=== PATIENT | female | born 1965 | race Caucasian/White ===

== ENCOUNTER 2024-04-14 19:21 | Emergency (ER) | payer OTHER, SELFPAY ==
--- NOTE | ~2024-04-14 | XR_ITS ---
CLINICAL HISTORY: cough 2 view chest x-ray Comparison: None Findings: The lungs are clear. Heart size is normal. No acute fracture. IMPRESSION: 1. No acute findings. This document has been electronically signed by: Dwain Monet MD on 04/14/2024 19:46:41
[2024-04-14 19:25] VITALS: BP 124/59; PULSE 114; RESP 20; TEMP 37.4; O2SAT 95; BMI 22.5
--- NOTE | 2024-04-14 19:29 | ED_ITS ---
HPI - General Adult General Chief complaint: Upper Respiratory Symptoms Stated complaint: flu like symptoms Time Seen by Provider: 04/14/24 22:33 History of Present Illness ED Provider: Regina WOOD narrative: The patient is a 58-year-old female who says that she became acutely ill yesterday with a cough, fever, headache and diffuse body pains. She has had a cough but no particular sputum. No nausea or vomiting. Feels rotten. Related Data Previous Rx's ?Medication ?Instructions ?Recorded ibuprofen 400 mg tablet 400 mg PO Q6H PRN pain #14 tabs 04/15/24 oseltamivir 75 mg capsule 75 mg PO BID 5 days #10 caps 04/15/24 Allergies Allergy/AdvReac Type Severity Reaction Status Date / Time No Known Allergies Allergy Verified 04/14/24 19:27 Review of Systems Review of Systems: Yes all other systems are reviewed and are negative [facility] Social History Social History Advance Directives: No Advance Directives Information Provided: No Do you have a plan to hurt others: No Plan Physical Exam ED Vital Signs: Vital Signs - 24 hr 04/14/24 19:25 04/15/24 00:35 Temperature 99.4 F 99.2 F Pulse Rate 114 H 76 Respiratory Rate 20 16 Blood Pressure 124/59 L 116/68 Pulse Oximetry 95 96 Oxygen Delivery Method Room Air BMI result Body Mass Index 22.5 Const Other: The patient is awake and alert with a normal mental status. She looks as if she feels unwell but does not seem acutely toxic or in distress. [facility] Head: Yes normal to inspection Face and sinus: Yes normal facial exam Mouth: Normal oral and palatal mucosa present and moist mucous membranes Eyes General: appearance normal, both eyes and all related structures Neck Neck: Yes full ROM Resp Other: I did not hear any wheezes. She did not appear short of breath. Effort & Inspection: normal respiratory effort Auscultation: clear to auscultation bilaterally Cardio Rate: regular rate Rhythm: regular rhythm Heart sounds: S1 normal heart sound present and S2 normal heart sound present GI Other: Abdomen is soft and nontender Skin Other: Skin is dry and unremarkable Neuro Other: The patient is awake and alert with a normal mental status. Cranial nerves grossly intact. She moves her extremities normally. Extrem Other: No peripheral edema Course Course Course Narrative: RME performed by Karolyn Abreu PA-C. Patient is a 58 year old assigned female at presenting to the emergency department with a cough, headache, and shortness of breath. Detailed physical exam and review of systems are deferred to the ios developer. EKG, imaging, and swabs ordered. Patient placed back in the waiting room pending room availability and results. Medications Administered Discontinued Medications Generic Name Dose Route Start Last Admin Trade Name Marie PRN Reason Stop Dose Admin Acetaminophen 975 mg 04/14/24 22:39 04/14/24 23:19 Acetaminophen 325 Mg Tablet PO 04/14/24 22:40 975 mg ONCE ONE Administration Ketorolac Tromethamine 30 mg 04/14/24 22:39 04/14/24 23:19 Ketorolac Tromethamine 30 Mg/Ml Vial IM 04/14/24 22:40 30 mg ONCE ONE Administration Oseltamivir Phosphate 75 mg 04/14/24 22:40 04/14/24 23:19 Oseltamivir Phosphate 75 Mg Capsule PO 04/14/24 22:41 75 mg ONCE ONE Administration Medical Decision Making Medical Decision Making [facility] Narrative: The patient is a 58-year-old female who describes symptoms of respiratory infection combined with a headache and body aches suggestive of influenza. She has tested positive for influenza A. She has been coughing. A chest x-ray is negative. I do not hear any wheezes on exam. She will be started on oseltamivir. She was treated symptomatically with an IM injection of ketorolac and a dose of acetaminophen. She was observed. She fell asleep. She will be discharged with a prescription for oseltamivir and for ibuprofen. The patient lives at some kind of a skilled nursing house. She is new in his area. She does not have a primary care doctor. Her program was called and they sent a car to pick her up. She should return if worse. Lab Data Labs: Lab Results 04/14/24 Range/Units 19:39 Influenza Type A (PCR) POSITIVE A (Negative) Influenza Type B (PCR) NEGATIVE (Negative) RSV RNA Qual (PCR) NEGATIVE (Negative) SARS-CoV-2 RNA (RT-PCR) NEGATIVE (Negative) Discharge Plan Discharge Clinical Impression: Influenza A Patient Disposition: Home, Self-Care Instructions: Influenza (ED) Additional Instructions: You have tested positive for influenza today. You has been started on an anti influenza medication, oseltamivir, also known as Tamiflu. A prescription for this medication has been sent to the [facility] pharmacy at [address] [place] [address] in [place]. A prescription has also been sent for ibuprofen which you may use as needed for discomfort. In addition you may take [id number] acetaminophen (Tylenol). Drink a lot of fluids. Please work on getting a regular primary care doctor. Return to the emergency room if significantly worse. Prescriptions: New oseltamivir 75 mg capsule 75 mg PO BID 5 Days Qty: 10 0RF ibuprofen 400 mg tablet 400 mg PO Q6H PRN (Reason: pain) Qty: 14 0RF Interventions: ED Discharge Assessment Last Done: 04/15/24 00:35 Discharge Date/Time: 04/15/24 00:36 Print Language: Venezuelan
--- NOTE | 2024-04-14 19:31 | ECG_ITS ---
Test Reason : SOB Blood Pressure : / mmHG Vent. Rate : 071 BPM Atrial Rate : 071 BPM P-R Int : 126 ms QRS Dur : 092 ms QT Int : 388 ms P-R-T Axes : 051 029 052 degrees QTc Int : 421 ms Normal sinus rhythm Incomplete right bundle branch block Septal infarct , age undetermined Abnormal ECG No previous ECGs available Referred By: Karolyn Abreu Electronically Signed By:Reggie Gordon
[2024-04-14 20:20] LABS: Influenza A PCR POSITIVE (Negative); Influenza B PCR NEGATIVE (Negative); Resp Syncy Virus RNA Qual PCR NEGATIVE (Negative); SARS COV2 PCR INHOUSE NEGATIVE (Negative)
[2024-04-14] MEDS: Acetaminophen 325 MG TABLET 975 MG PO (23:19)
[2024-04-14] MEDS: Ketorolac Tromethamine 30 MG/ML VIAL IM (23:19)
[2024-04-14] MEDS: Oseltamivir Phosphate 75 MG CAPSULE PO (23:19)
[2024-04-15 00:35] VITALS: BP 116/68; PULSE 76; RESP 16; TEMP 37.3; O2SAT 96
== END 2024-04-15 00:36 | disposition home or self-care (01) ==
PROVIDERS: Physician Assistant Medical; Emergency Provider Emergency Medicine
DX: R05.9 Cough, unspecified (principal); R50.9 Fever, unspecified; R51.9 Headache, unspecified; I45.10 Unspecified right bundle-branch block; R06.02 Shortness of breath; Z03.818 Encounter for observation for suspected exposure to other biological agents ruled out
CPT/HCPCS: 0241U; 71046; 93005; 96372; 99283; 99284; J1885

== ENCOUNTER → 2024-04-14 19:31 | Outpatient (BNV) | payer MEDICAID, SELFPAY | PROVIDERS: Visit Provider Specialist | DX: R05.9 Cough, unspecified (principal) | CPT/HCPCS: 71046 ==

== ENCOUNTER → 2024-04-14 19:31 | Outpatient (BNV) | payer OTHER, SELFPAY | PROVIDERS: Emergency Provider Emergency Medicine; Visit Provider Internal Medicine Cardiovascular Disease | DX: R06.02 Shortness of breath (principal) | CPT/HCPCS: 93010 ==

== ENCOUNTER 2024-06-27 08:47 | Inpatient (IN) | payer MEDICAID, OTHER, SELFPAY ==
--- NOTE | 2024-06-27 | ECG_ITS ---
Test Reason : check qt Blood Pressure : */* mmHG Vent. Rate : 59 BPM Atrial Rate : 59 BPM P-R Int : 130 ms QRS Dur : 92 ms QT Int : 440 ms P-R-T Axes : 50 37 29 degrees QTcB Int : 435 ms Sinus bradycardia Otherwise normal ECG When compared with ECG of 14-Apr-2024 19:45, No significant change was found Referred By: Osman Larsen Electronically Signed By: MAURIZIO GUILLAUME
[2024-06-27 08:57] VITALS: RESP 20; BMI 21.6
[2024-06-27 09:08] VITALS: RESP 20
--- NOTE | 2024-06-27 09:09 | PC.NURSE ---
pt presents to the ED today after being kicked out of her long-term per EMS. When patient was told that she was being discharged from the long-term, she reportedly locked herself in the bathroom so they could not take her out. She then made suicidal statements. upon arrival, patient is yelling, screaming and crying, initially refusing to record changer tester. Security Nagi and ODALYS Breaux both accompanied patient to bathroom for changeover. patient now laying on couch in BH 7, refusing to answer questions
--- NOTE | 2024-06-27 09:58 | ED_ITS ---
HPI - Psych General Chief Complaint: Psychiatric Symptoms Stated Complaint: SI STATEMENTS FROM [facility],COOP PER EMS Time Seen by Provider: 06/27/24 09:35 Source: patient Mode of arrival: ambulatory Limitations: no limitations History of Present Illness HPI Narrative: 58-year-old female presents to the ER after being discharged from she states her snf house for using a vape. Patient did make some suicide she denies SI at this time she had locked herself in the bathroom she went to leave patient is tearful and yelling and agitated on arrival Related Data Home Medications ?Medication ?Instructions ?Recorded ?Confirmed buprenorphine 8 mg-naloxone 2 mg 1 film buccal BID 06/27/24 06/27/24 sublingual film (Suboxone) chlorpromazine 25 mg tablet 25 mg PO TID PRN Agitation 06/27/24 06/27/24 diphenhydramine HCl 25 mg capsule 25 mg PO BID 06/27/24 06/27/24 (Benadryl) duloxetine 30 mg capsule,delayed 30 mg PO BID 06/27/24 06/27/24 release furosemide 20 mg tablet 20 mg PO DAILY 06/27/24 06/27/24 lidocaine 4 % topical patch 1 patch topical DAILY PRN Pain 06/27/24 06/27/24 mirtazapine 15 mg tablet 15 mg PO BEDTIME 06/27/24 06/27/24 prazosin 1 mg capsule 2 mg PO BEDTIME 06/27/24 06/27/24 propranolol 20 mg tablet 20 mg PO TID PRN Anxiety 06/27/24 06/27/24 rosuvastatin 20 mg tablet 20 mg PO DAILY 06/27/24 06/27/24 Allergies Allergy/AdvReac Type Severity Reaction Status Date / Time No Known Allergies Allergy Verified 06/27/24 08:58 Review of Systems 2 Review of Systems: Review of systems: General: Patient denies any fever chills recent illness or falls Musculoskeletal: Denies back pain or body aches or other injuries HEENT: denies headache, runny nose, ear pain Respiratory: denies shortness of breath, cough Cardiovascular: no chest pain or palpitations : denies dysuria, frequency Abdomen: no nausea vomiting denies abdominal pain Extremities: no swelling, no pain Skin: no diaphoresis Yes all other systems are reviewed and are negative [facility] Social History Social History Advance Directives: No Advance Directives Information Provided: No Patient : No Physical Exam 2 Vital Signs: Vital Signs: Last Vital Signs Temp 98.2 F 06/27/24 10:07 Pulse 110 H 06/27/24 10:07 Resp 22 H 06/27/24 10:07 BP 127/74 06/27/24 10:07 Pulse Ox 98 06/27/24 10:07 O2 Del Method Room Air 06/27/24 10:07 BMI result Body Mass Index 21.6 General: Well-appearing well-nourished in no signs of distress HEENT: Normocephalic atraumatic Neck: No signs of JVD, no masses no tenderness or lymphadenopathy Cardiovascular: Regular rate and rhythm Respiratory: Clear to auscultation bilaterally Abdomen: Soft nontender no masses Extremities: Normal pedal pulses no signs of edema Skin: Dry warm no rashes Back: No tenderness full ROM Course Course Course Narrative: Patient found to have a bladder infection was treated with cefuroxime which is ordered twice a day for the next few days while she was here patient was placed on a section 12 by [facility] inpatient stay here pending placement. Medications Administered Generic Name Dose Route Start Last Admin Trade Name Freq PRN Reason Stop Dose Admin Buprenorphine/Naloxone 1 film 06/27/24 10:05 06/27/24 10:31 Buprenorphine/Naloxone 8/2 Mg Film BUCCAL 1 film BID NASREEN Administration Chlorpromazine HCl 25 mg 06/27/24 09:59 06/27/24 10:31 Chlorpromazine Hcl 25 Mg Tablet PO 25 mg TID PRN Administration Agitation Diphenhydramine HCl 25 mg 06/27/24 10:15 06/27/24 10:31 Diphenhydramine Hcl 25 Mg Capsule PO 25 mg BID NASREEN Administration Duloxetine HCl 30 mg 06/27/24 10:15 06/27/24 10:31 Duloxetine Hcl 30 Mg Capsule.Dr PO 30 mg BID NASREEN Administration Furosemide 20 mg 06/27/24 10:15 06/27/24 10:31 Furosemide 20 Mg Tablet PO 20 mg DAILY NASREEN Administration Protocol Medical Decision Making Medical Decision Making [facility] Narrative: I think the patient is to be cleared labs were sent I did order her home medications and we will wait for the patient to be a behavioral health Differential Diagnosis Differential Diagnoses: The differential diagnosis associated with the presentation includes Attention seeking behavior less likely suicidal Consult Healthcare Provider Management of the patient was discussed with: Behavioral Health Provider Lab Data 06/27/24 12:05 06/27/24 12:05 Labs: Lab Results 06/27/24 06/27/24 Range/Units 12:05 12:14 WBC 7.5 (4.8-10.8) X10*3/uL RBC 4.55 (4.20-5.50) X10*6/uL Hgb 13.5 (12.0-16.0) g/dl Hct 40.2 (37.0-47.0) % MCV 88.4 (80.0-98.0) fL MCH 29.7 (27.0-33.0) pg MCHC 33.6 (31.0-35.0) g/dl RDW 12.1 (11.0-16.0) % Plt Count 217 (160-400) X10*3/uL MPV 9.2 L (9.4-12.3) fL Immature Gran % (Auto) 0.1 (0.0-0.4) % Neut % (Auto) 73.0 (45-73) % Lymph % (Auto) 22.3 (20-40) % [place] % (Auto) 4.0 (2-11) % Eos % (Auto) 0.3 (0-4) % Baso % (Auto) 0.3 (0-2) % Lymph # (Auto) 1.7 (1.2-4.9) X10*3/uL [place] # (Auto) 0.3 (0.1-1.2) X10*3/uL Eos # (Auto) 0.0 (0.0-0.4) X10*3/uL Baso # (Auto) 0.0 (0.0-0.2) X10*3/uL Abs Immat Gran (auto) 0.01 (0.00-0.03) X10*3/uL Absolute Neuts (auto) 5.5 (2.0-8.3) x10*3/uL Absolute Nucleated RBC 0.000 (0.0-0.012) X10*3/uL Nucleated RBC % (auto) 0.0 (0.0-0.2) /100WBC Sodium 141 (135-145) mmol/L Potassium 4.1 (3.3-5.1) mmol/L Chloride 111 H (96-108) mmol/L Carbon Dioxide 24 (22-29) mmol/L Anion Gap 10 L (12-20) BUN 10 (9-16) mg/dL Creatinine 0.69 (0.5-1.4) mg/dL Estim Creat Clear Calc 79.9 Estimated GFR > 60 Random Glucose 115 (60-115) mg/dL Calcium 9.3 (8.4-10.2) mg/dL Total Bilirubin 0.3 (0.0-1.0) mg/dL AST 23 (5-31) U/L ALT 17 (0-31) U/L Alkaline Phosphatase 70 (39-117) U/L Total Protein 7.1 (6.5-8.0) g/dL Albumin 4.1 (3.5-5.0) g/dL Urine Color Yellow Urine Appearance Cloudy Urine pH 7.0 (5.0-9.0) Ur Specific [place] 1.015 (1.005-1.025) Urine Protein Trace (Neg-Trace) mg/dL Urine Glucose (UA) Negative (Negative) mg/dL Urine Ketones Negative (Negative) mg/dL Urine Blood Negative (Negative) Urine Nitrite Positive H (Negative) Ur Leukocyte Esterase Large (3+) H (Negative) Urine RBC 0-2 (0-2) /HPF Urine WBC >50 H (0-5) /HPF Ur Squamous Epith Cells 3-5 (0-2) /HPF Urine Bacteria 4+ (None Seen) Hyaline Casts 0-2 (0-2) /LPF Urine Opiates Screen Not Detected (Not Detect) Ur Buprenorphine Scrn Positive H (Not Detect) ng/mL Ur Oxycodone Screen Not Detected (Not Detect) ng/mL Urine Methadone Screen Not Detected (Not Detect) ng/mL Urine Fentanyl Screen Not Detected (Not Detect) Ur Barbiturates Screen Not Detected (Not Detect) Ur Phencyclidine Scrn Not Detected (Not Detect) Ur Amphetamines Screen Not Detected (Not Detect) U Benzodiazepines Scrn Not Detected (Not Detect) Urine Cocaine Screen Not Detected (Not Detect) U Marijuana (THC) Screen Not Detected (Not Detect) Ethyl Alcohol < 10 mg/dL Discharge Plan Discharge Clinical Impression: Acute anxiety, Depression, UTI (urinary tract infection) Patient Disposition: Still a Patient Instructions: Anxiety (ED) Additional Instructions: You were seen today after being discharged from the police who were staying. You had initially made some suicidal statements while you were there he did have labs checked and were seen by behavioral health. Prescriptions: No Action prazosin 1 mg Capsule 2 mg PO BEDTIME diphenhydramine HCl [Benadryl] 25 mg Capsule 25 mg PO BID chlorpromazine 25 mg Tablet 25 mg PO TID PRN (Reason: Agitation) furosemide 20 mg Tablet 20 mg PO DAILY mirtazapine 15 mg Tablet 15 mg PO BEDTIME propranolol 20 mg Tablet 20 mg PO TID PRN (Reason: Anxiety) rosuvastatin 20 mg Tablet 20 mg PO DAILY duloxetine 30 mg Capsule,Delayed Release(Dr/Ec) 30 mg PO BID buprenorphine-naloxone [Suboxone] 8-2 mg Film 1 film BUCCAL BID lidocaine 4 % Adhesive Patch,Medicated 1 patch TOPICAL DAILY PRN (Reason: Pain) Interventions: Schleicher-Suicide Risk Severity Scale Last Done: 06/27/24 09:08 Print Language: Kazakh
[2024-06-27 10:07] VITALS: BP 127/74; PULSE 110; RESP 22; TEMP 36.8; O2SAT 98
--- NOTE | 2024-06-27 10:13 | PHA.MEDREC ---
Pharmacy Consult ? Medication Reconciliation Pharmacy has completed the medication reconciliation. Reviewed med list to confirm home meds. Changed rec done by nursing. Patient takes Prazosin 1mg, 2 capsules at bedtime, not 1. Also on a Lidocaine patch.
[2024-06-27] MEDS: chlorproMAZINE HCl 25 MG TABLET PO ×2 (10:31→17:50)
[2024-06-27] MEDS: Buprenorphine/Naloxone 8/2 mg FILM 1 FILM BUCCAL ×2 (10:31→20:34)
[2024-06-27] MEDS: Furosemide 20 MG TABLET PO (10:31)
[2024-06-27] MEDS: diphenhydrAMINE HCL 25 MG CAPSULE PO (10:31)
[2024-06-27] MEDS: DULoxetine HCl 30 MG CAPSULE.DR PO ×2 (10:31→20:34)
[2024-06-27 12:10] LABS: MANUAL DIFF FLAG NO
[2024-06-27 12:12] LABS: Basophils Percent Auto 0.3 % (0-2); Eosinophils Percent Auto 0.3 % (0-4); Hematocrit 40.2 % (37.0-47.0); Hemoglobin 13.5 g/dl (12.0-16.0); Imm Gran Abs Auto 0.01 X10*3/uL (0.00-0.03); Imm Gran Pct Auto 0.1 % (0.0-0.4); Lymphocytes Absolute Auto 1.7 X10*3/uL (1.2-4.9); Lymphocytes Percent Auto 22.3 % (20-40); Mean Corpuscular HGB Conc 33.6 g/dl (31.0-35.0); Mean Corpuscular Hemoglobin 29.7 pg (27.0-33.0); Mean Corpuscular Volume 88.4 fL (80.0-98.0); Mean Platelet Volume 9.2 fL (9.4-12.3); Monocytes Absolute Auto 0.3 X10*3/uL (0.1-1.2); Neutrophils Absolute Auto 5.5 x10*3/uL (2.0-8.3); Platelet Count 217 X10*3/uL (160-400); Red Blood Count 4.55 X10*6/uL (4.20-5.50); Red Cell Distribution Width 12.1 % (11.0-16.0); White Blood Count 7.5 X10*3/uL (4.8-10.8)
[2024-06-27 12:24] LABS: Appearance Urine Cloudy; Color Urine Yellow; Glucose Urine UA Negative (Negative); Leukocyte Esterase Urine Large (3+) (Negative); Nitrite Urine Positive (Negative); Specific Gravity - Urine 1.015 (1.005-1.025); UMIC TRIGGER UACC YES; Urine Blood Negative (Negative); Urine Ketones Negative (Negative); Urine Protein Trace mg/dL (Neg-Trace)
[2024-06-27 12:32] LABS: Alanine Aminotransferase 17 U/L (0-31); Albumin Level 4.1 g/dL (3.5-5.0); Alkaline Phosphatase 70 U/L (39-117); Anion Gap 10 (12-20); Aspartate Amino Transferase 23 U/L (5-31); Bilirubin Total 0.3 mg/dL (0.0-1.0); Blood Urea Nitrogen 10 mg/dL (9-16); Calcium 9.3 mg/dL (8.4-10.2); Carbon Dioxide 24 mmol/L (22-29); Chloride 111 mmol/L (96-108); Creatinine Clr Calc Pharmacy 79.9; Estimated Glomerular Filt Rate > 60; Ethanol < 10 mg/dL; Glucose Random 115 mg/dL (60-115); Potassium 4.1 mmol/L (3.3-5.1); Sodium 141 mmol/L (135-145); Total Protein 7.1 g/dL (6.5-8.0)
[2024-06-27 12:33] LABS: Amphetamine Screen Urine Not Detected (Not Detect); Barbiturates, Urine Not Detected (Not Detect); Benzodiazepines Screen Urine Not Detected (Not Detect); Buprenorphine Scr Positive (Not Detect); Cannabinoid Screen Urine Not Detected (Not Detect); Cocaine Screen Urine Not Detected (Not Detect); Fentanyl, urine Not Detected (Not Detect); Methadone Screen, Urine Not Detected (Not Detect); Opiate Screen Urine Not Detected (Not Detect); Oxycodone Screen Urine Not Detected (Not Detect); Phencyclidine Screen Urine Not Detected (Not Detect)
[2024-06-27 12:35] LABS: Bacteria Urine 4+ (None Seen); Hyaline Casts Urine 0-2 /LPF (0-2); RBC Urine 0-2 /HPF (0-2); UACC Culture Trigger YES; WBC Urine >50 /HPF (0-5)
--- NOTE | 2024-06-27 13:32 | MHC.CARE ---
Pt meets the criteria for IPLOC. Section 12a in chart, Provider in agreement.
[2024-06-27] MEDS: cefuroxime axetiL 250 MG TABLET PO ×2 (14:14→22:21)
[2024-06-27 16:45] VITALS: BP 126/71; PULSE 93; RESP 18; TEMP 36.8; O2SAT 96
[2024-06-27] MEDS: Nicotine Polacrilex Lozenge 4 MG LOZENGE BUCCAL (17:50)
[2024-06-27 17:59] VITALS: BMI 21.6
--- NOTE | 2024-06-27 18:19 | PC.ADMIT ---
58 y/o female admitted to M5 from [facility] at 1645 on a CV for depression and SI. Pt was BIBA from a [facility] residential program in [place], where pt had resided for the past two and a half months. Per report, pt was kicked out of the program today after being found with a vape. Once vape was discovered at the facility pt proceeded to lock herself in the bathroom and threatened to kill herself. Pro notified police, and pt was brought to the ED for evaluation. On arrival to ED pt was found to be dysregulated and crying/yelling. Per ED report, while pt was being changed over into hospital clothing, it was discovered that pt had placed a vape inside her vagina (which was then turned over to Security). Pt received prn Thorazine and Bendadryl today in POD after becoming agitated, crying, and yelling. Pt had initially insisted that she did not need to be in the hospital, and was focused on wanting to return to [facility]. Per report pt has a lengthy hx of detox, CSS, and TSS admits, however pt was previously unknown to our CARE team. Tox screen in ED was positive for Buprenorphine, and per ED pt does have a prescription for Suboxone from [facility] in [place]. Pt?s urine sample showed signs of UTI and pt was started on Cefuroxime BID. On arrival to the unit pt was very distraught, tearful and emotional. Pt reported ?What am I going to do now?? Pt stated ?I got so nicole going there. I was finally clean. I was participating in groups and opening up for the first time, and I messed it all up over a stupid nicotine vape.? Pt had difficulty getting through the admission process and was only partially cooperative due to sobbing and repeatedly discussing her disbelief that she was kicked out of the program. ?I was supposed to be there for a year. I don?t know what I am going to do now.? Pt denied active thoughts to harm self, and stated ?No I want to be here. I need help. I have to go to a program. I have to stay clean.? Pt also distraught that Pro had not brought her belongings to the hospital, which included her cell phone. Pt stated ?All my pictures of my are on my phone.? Pt stated ?they will only keep my things for 72 hours.? Per ED, EMS stated belongings would be brought to hospital. In addition, ED reached out to [facility] to have belongings brought to hospital. Pt denied ETOH use, denied substance use, and reported she was a regular nicotine vape user. Pt has partial dentures and nicotine lozenges were ordered per pt request. Pt declined Influenza vaccine. Pt refused to sign releases, and stated ?When I calm down I will call my mom myself and talk to her?. Pt placed on 15 minute checks for safety.
[2024-06-27 20:00] VITALS: BP 140/94; PULSE 89; TEMP 36.2; O2SAT 97
[2024-06-27 20:34] VITALS: BP 140/94
[2024-06-27] MEDS: Acetaminophen 325 MG TABLET 650 MG PO (20:34)
[2024-06-27] MEDS: Mirtazapine 15 MG TABLET PO (20:34)
[2024-06-27] MEDS: Prazosin HCL 1 MG CAPSULE 2 MG PO (20:34)
[2024-06-28 08:26] LABS: Estimated Average Glucose 120 mg/dL; Hemoglobin A1c % 5.8 % (<6.0)
[2024-06-28 08:42] LABS: Cholesterol 219 mg/dL (<200); HDL Cholesterol 49 mg/dL (>40); LDL Cholesterol Calculated 149 mg/dL (<100); Magnesium 2.1 mg/dL (1.6-2.6); Triglycerides 106 mg/dL (<150)
[2024-06-28 09:01] LABS: Free T4 (Free Thyroxine) 0.86 ng/dL (0.71-1.85); Thyroid Stimulating Hormone 1.27 uIU/mL (0.32-4.0); Vitamin B12 490 pg/mL (200-900)
[2024-06-28 09:44] VITALS: BP 120/80
[2024-06-28] MEDS: Atorvastatin Calcium 10 MG TABLET PO (09:44)
[2024-06-28] MEDS: Furosemide 20 MG TABLET PO (09:44)
[2024-06-28] MEDS: cefuroxime axetiL 250 MG TABLET PO ×2 (09:44→22:08)
[2024-06-28] MEDS: DULoxetine HCl 30 MG CAPSULE.DR PO ×2 (09:45→22:08)
[2024-06-28] MEDS: Buprenorphine/Naloxone 8/2 mg FILM 1 FILM BUCCAL (09:52)
[2024-06-28] MEDS: chlorproMAZINE HCl 25 MG TABLET PO (09:52)
--- NOTE | 2024-06-28 09:57 | P.HPPS_ITS ---
HPI Date of Service: 06/28/24 Chief Complaint: depression Sources of Information: patient interviewed, chart reviewed and crisis/core team assessment reviewed Additional Sources of Information: Seen 10:30am and 145pm with team HPI Subjective Notes: [place] Warning and Conditional Voluntary Healthcare Proxy: No Guardianship: No Medical Problems Affecting Mental Status: No Narrative: 58 yo female, history of depression,opiate use disorder, cocaine use disorder, clean for 2.5 months as she has been in residential with [facility], presents with [facility] after begin asked to leave the program as she was using a nicotine vape in her room which is in violation of program rules. Pt reports a long history of substance use, intervention, relapse. This program I was doing well in . Reports chairing meetings, being active and involved in the recovery community. I have lost everything. Pt reports her last year, she lost their home and is now homeless. She cries throughout our meeting today. I cannot do this any more . I would have been better off with a relapse. I was safe, finally, working hard, now I have nothing. Past Psychiatric History: IP: Affirms OP: [facility] Reports several interventions, trials of medicines by history Hx of a lack of follow up in treatment Medical Evaluation Reviewed: Yes [facility], [facility] Medical History (Updated 06/29/24 @ 17:16 by Jillian Leal APRN) Polysubstance use disorder Opioid use disorder, moderate, in early remission, on maintenance therapy, dependence Narrative: current UTI Social History: Raised in [place] [address] One daughter, age 19 and one son, age 29. She has no contact with them Substance History: heroin-Suboxone use, cocaine, nicotine, alcohol, oxycodone, fentanyl Uses [facility] for Suboxone Off substances 2.5 months Several detox admits Tox positive for suboxone Trauma History: affirms Diagnostics Vital Signs (24Hr): Vital Signs - 24 hr 06/27/24 10:07 06/27/24 16:45 06/27/24 20:00 Temperature 98.2 F 98.2 F 97.1 F Pulse Rate 110 H 93 89 Respiratory Rate 22 H 18 Blood Pressure 127/74 126/71 140/94 H Pulse Oximetry 98 96 97 Oxygen Delivery Method Room Air Room Air Room Air 06/27/24 20:34 06/28/24 09:44 Temperature Pulse Rate Respiratory Rate Blood Pressure 140/94 H 120/80 Pulse Oximetry Oxygen Delivery Method BMI result Body Mass Index 21.6 Labs 06/27/24 12:05 06/27/24 12:05 Labs: Laboratory Results - last 48 hr 06/27/24 06/27/24 06/28/24 12:05 12:14 07:37 WBC 7.5 RBC 4.55 Hgb 13.5 Hct 40.2 MCV 88.4 MCH 29.7 MCHC 33.6 RDW 12.1 Plt Count 217 MPV 9.2 L Immature Gran % (Auto) 0.1 Neut % (Auto) 73.0 Lymph % (Auto) 22.3 [place] % (Auto) 4.0 Eos % (Auto) 0.3 Baso % (Auto) 0.3 Lymph # (Auto) 1.7 [place] # (Auto) 0.3 Eos # (Auto) 0.0 Baso # (Auto) 0.0 Abs Immat Gran (auto) 0.01 Absolute Neuts (auto) 5.5 Absolute Nucleated RBC 0.000 Nucleated RBC % (auto) 0.0 Sodium 141 Potassium 4.1 Chloride 111 H Carbon Dioxide 24 Anion Gap 10 L BUN 10 Creatinine 0.69 Estim Creat Clear Calc 79.9 Estimated GFR > 60 Random Glucose 115 Estimat Average Glucose 120 Hemoglobin A1c % 5.8 Calcium 9.3 Magnesium 2.1 Total Bilirubin 0.3 AST 23 ALT 17 Alkaline Phosphatase 70 Total Protein 7.1 Albumin 4.1 Triglycerides 106 Cholesterol 219 H LDL Cholesterol, Calc 149 H HDL Cholesterol 49 Vitamin B12 490 Folate 13.0 TSH 1.27 Free T4 0.86 Urine Color Yellow Urine Appearance Cloudy Urine pH 7.0 Ur Specific [place] 1.015 Urine Protein Trace Urine Glucose (UA) Negative Urine Ketones Negative Urine Blood Negative Urine Nitrite Positive H Ur Leukocyte Esterase Large (3+) H Urine RBC 0-2 Urine WBC >50 H Ur Squamous Epith Cells 3-5 Urine Bacteria 4+ Hyaline Casts 0-2 Urine Opiates Screen Not Detected Ur Buprenorphine Scrn Positive H Ur Oxycodone Screen Not Detected Urine Methadone Screen Not Detected Urine Fentanyl Screen Not Detected Ur Barbiturates Screen Not Detected Ur Phencyclidine Scrn Not Detected Ur Amphetamines Screen Not Detected U Benzodiazepines Scrn Not Detected Urine Cocaine Screen Not Detected U Marijuana (THC) Screen Not Detected Ethyl Alcohol < 10 Meds/Allergies Meds Home Medications ?Medication ?Instructions ?Recorded ?Confirmed ?Type buprenorphine 8 mg-naloxone 2 mg 1 film buccal BID 06/27/24 06/27/24 History sublingual film (Suboxone) chlorpromazine 25 mg tablet 25 mg PO TID PRN Agitation 06/27/24 06/27/24 History diphenhydramine HCl 25 mg capsule 25 mg PO BID 06/27/24 06/27/24 History (Benadryl) duloxetine 30 mg capsule,delayed 30 mg PO BID 06/27/24 06/27/24 History release furosemide 20 mg tablet 20 mg PO DAILY 06/27/24 06/27/24 History lidocaine 4 % topical patch 1 patch topical DAILY PRN Pain 06/27/24 06/27/24 History mirtazapine 15 mg tablet 15 mg PO BEDTIME 06/27/24 06/27/24 History prazosin 1 mg capsule 2 mg PO BEDTIME 06/27/24 06/27/24 History propranolol 20 mg tablet 20 mg PO TID PRN Anxiety 06/27/24 06/27/24 History rosuvastatin 20 mg tablet 20 mg PO DAILY 06/27/24 06/27/24 History Allergies Allergies Allergy/AdvReac Type Severity Reaction Status Date / Time No Known Allergies Allergy Verified 06/27/24 08:58 Mental Status Exam Mental Status Exam Patient Appearance: Appropriate Patient Orientation: Person, Place, Time and Situation Level of Consciousness: Alert Patient Behavior: Appropriate, Talkative, Cooperative, Distractible, Good Eye Contact and Crying Mood Description: Depressed Affect Description: Flat Patient Cognition Impaired: No Ability to Follow Directions: Good Speech Pattern: Spontaneous Speech Memory Description: Intact Hallucinations: None Delusions: Not Present Thought Process: Rumination Thought Content: positive for Circumstantial, positive for Perseveration and positive for Suicidal Ideation Depressive Symptoms: Thoughts of /Suicide Judgement: Fair Assessment & Plan Assessment & Plan (1) Depression: Status: Acute Code(s): F32.A - Depression, unspecified (2) Opioid use disorder, moderate, in early remission, on maintenance therapy, dependence: Status: Acute Code(s): F11.21 - Opioid dependence, in remission (3) Mixed emotional features as adjustment reaction: Status: Acute Code(s): F43.29 - Adjustment disorder with other symptoms (4) UTI (urinary tract infection): Status: Acute Code(s): N39.0 - Urinary tract infection, site not specified Plan Admit, CV, 15 minute checks Maintain current regime Diagnostics as needed Collateral Contact Encourage milieu participation Discharge planning Patient educated on: therapeutic strategies Reason for continued inpatient stay Substantial Risk for: rapid decompensation Statement Statement: I have reviewed the history and physical and performed a pertinent examination on my patient. No changes have occurred unless specified. If the History and Physical was not performed prior to admission, the Hospitalist's service will be consulted for completing the admission physical. Time Spent With Patient Time: Total time managing care of this patient today ____ minutes.
[2024-06-28 11:28] VITALS: PULSE 97
[2024-06-28] MEDS: Propranolol HCL 20 MG TABLET PO ×2 (11:28→22:17)
[2024-06-28] MEDS: Nicotine Polacrilex Lozenge 4 MG LOZENGE BUCCAL ×2 (11:28→22:23)
[2024-06-28] MEDS: Buprenorphine/Naloxone 8/2 mg FILM 1 FILM SUBLINGUAL ×2 (11:44→16:00)
[2024-06-28] MEDS: Nicotine 14 MG PATCH.TD24 TRANSDERMA (11:45)
[2024-06-28] MEDS: chlorproMAZINE HCl 25 MG TABLET 50 MG PO ×2 (14:44→22:16)
[2024-06-28 19:51] VITALS: BP 92/58; PULSE 76; RESP 18; TEMP 36.5; O2SAT 96
[2024-06-28] MEDS: Mirtazapine 15 MG TABLET PO (22:09)
[2024-06-28 22:16] VITALS: BP 112/63
[2024-06-28] MEDS: Prazosin HCL 1 MG CAPSULE 2 MG PO (22:16)
[2024-06-28 22:17] VITALS: BP 112/63; PULSE 78
[2024-06-29] VITALS (7 sets, daily range): BP systolic 90–103; BP diastolic 53–58; PULSE 66–85; RESP 18; TEMP 36.1–36.4; O2SAT 95–96; BMI 24.8
[2024-06-29] MEDS: cefuroxime axetiL 250 MG TABLET PO ×2 (08:37→21:37)
[2024-06-29] MEDS: Nicotine 14 MG PATCH.TD24 TRANSDERMA (08:37)
[2024-06-29] MEDS: DULoxetine HCl 30 MG CAPSULE.DR PO ×2 (08:37→21:38)
[2024-06-29] MEDS: Atorvastatin Calcium 10 MG TABLET PO (08:37)
[2024-06-29] MEDS: Furosemide 20 MG TABLET PO (08:37)
[2024-06-29] MEDS: Buprenorphine/Naloxone 8/2 mg FILM 2 FILM SUBLINGUAL (08:39)
[2024-06-29] MEDS: chlorproMAZINE HCl 25 MG TABLET 50 MG PO ×3 (08:42→21:31)
[2024-06-29] MEDS: Propranolol HCL 20 MG TABLET PO ×3 (08:42→21:38)
--- NOTE | 2024-06-29 10:15 | HO.PSYCHPN ---
Subjective Subjective Date of Service: 06/29/24 Reason For Visit: depression Subjective Notes: Conditional Voluntary Healthcare Proxy: No Guardianship: No Medical Problems Affecting Mental Status: No Interim History: Improving, more active in her care. She was able to call [facility]. She was able to negotiate for them to bring her belongings to [facility] [place] [facility]. They will allow her to reapply in 3 months for admission to the program. Pt/Team will apply to [facility] currently. Calmer, no crying, participating in milieu. Very anxious. Willing to trial Trileptal. Some intermittent lability noted. Medication Compliance: Yes Side effects from medications: No Attending Groups: Intermittent Review of Systems Acute medical concerns: No Medical Review of Systems: unchanged Review of Systems Review of Systems UTI Mental Status Exam Mental Status Exam Patient Appearance: Appropriate Patient Orientation: Person, Place, Time and Situation Level of Consciousness: Alert Patient Behavior: Appropriate, Talkative, Cooperative and Good Eye Contact Mood Description: Depressed Affect Description: Flat Patient Cognition Impaired: No Ability to Follow Directions: Good Speech Pattern: Spontaneous Speech Memory Description: Intact Hallucinations: None Delusions: Not Present Thought Process: Rumination Thought Content: positive for Circumstantial and positive for Perseveration Judgement: Good Diagnostics Vital Signs (24Hr): Vital Signs - 24 hr 06/28/24 11:28 06/28/24 19:51 06/28/24 22:16 Temperature 97.7 F Pulse Rate 97 76 Respiratory Rate 18 Blood Pressure 92/58 L 112/63 Pulse Oximetry 96 Oxygen Delivery Method Room Air 06/28/24 22:17 06/29/24 07:56 06/29/24 08:42 Temperature 97.4 F Pulse Rate 78 66 66 Respiratory Rate 18 Blood Pressure 112/63 103/58 L Pulse Oximetry 96 Oxygen Delivery Method Room Air BMI result Body Mass Index 21.6 Labs 06/27/24 12:05 06/27/24 12:05 Labs: Laboratory Results - last 48 hr 06/27/24 06/27/24 06/28/24 12:05 12:14 07:37 WBC 7.5 RBC 4.55 Hgb 13.5 Hct 40.2 MCV 88.4 MCH 29.7 MCHC 33.6 RDW 12.1 Plt Count 217 MPV 9.2 L Immature Gran % (Auto) 0.1 Neut % (Auto) 73.0 Lymph % (Auto) 22.3 [place] % (Auto) 4.0 Eos % (Auto) 0.3 Baso % (Auto) 0.3 Lymph # (Auto) 1.7 [place] # (Auto) 0.3 Eos # (Auto) 0.0 Baso # (Auto) 0.0 Abs Immat Gran (auto) 0.01 Absolute Neuts (auto) 5.5 Absolute Nucleated RBC 0.000 Nucleated RBC % (auto) 0.0 Sodium 141 Potassium 4.1 Chloride 111 H Carbon Dioxide 24 Anion Gap 10 L BUN 10 Creatinine 0.69 Estim Creat Clear Calc 79.9 Estimated GFR > 60 Random Glucose 115 Estimat Average Glucose 120 Hemoglobin A1c % 5.8 Calcium 9.3 Magnesium 2.1 Total Bilirubin 0.3 AST 23 ALT 17 Alkaline Phosphatase 70 Total Protein 7.1 Albumin 4.1 Triglycerides 106 Cholesterol 219 H LDL Cholesterol, Calc 149 H HDL Cholesterol 49 Vitamin B12 490 Folate 13.0 TSH 1.27 Free T4 0.86 Urine Color Yellow Urine Appearance Cloudy Urine pH 7.0 Ur Specific [place] 1.015 Urine Protein Trace Urine Glucose (UA) Negative Urine Ketones Negative Urine Blood Negative Urine Nitrite Positive H Ur Leukocyte Esterase Large (3+) H Urine RBC 0-2 Urine WBC >50 H Ur Squamous Epith Cells 3-5 Urine Bacteria 4+ Hyaline Casts 0-2 Urine Opiates Screen Not Detected Ur Buprenorphine Scrn Positive H Ur Oxycodone Screen Not Detected Urine Methadone Screen Not Detected Urine Fentanyl Screen Not Detected Ur Barbiturates Screen Not Detected Ur Phencyclidine Scrn Not Detected Ur Amphetamines Screen Not Detected U Benzodiazepines Scrn Not Detected Urine Cocaine Screen Not Detected U Marijuana (THC) Screen Not Detected Ethyl Alcohol < 10 Medications Medications Current Medications Acetaminophen (Acetaminophen 325 Mg Tablet) 650 mg PO Q6H PRN PRN Reason: Headache/Pain, Scale 1-10 Last Admin: 06/27/24 20:34 Dose: 650 mg Al Hydroxide/Mg Hydroxide (Magnesium Hydrox/Alum Hydrox 30 Ml Oral.Susp) 30 ml PO Q6H PRN PRN Reason: Heartburn/Nausea Atorvastatin Calcium (Atorvastatin Calcium 10 Mg Tablet) 10 mg PO DAILY [facility] Last Admin: 06/29/24 08:37 Dose: 10 mg Buprenorphine/Naloxone (Buprenorphine/Naloxone 8/2 Mg Film) 2 film SUBLINGUAL DAILY@0800 [facility] Last Admin: 06/29/24 08:39 Dose: 2 film Buprenorphine/Naloxone (Buprenorphine/Naloxone 8/2 Mg Film) 1 film SUBLINGUAL DAILY@1600 [facility] Last Admin: 06/28/24 16:00 Dose: 1 film Cefuroxime Axetil (Cefuroxime Axetil 250 Mg Tablet) 250 mg PO BID [facility] Last Admin: 06/29/24 08:37 Dose: 250 mg Chlorpromazine HCl (Chlorpromazine Hcl 25 Mg Tablet) 50 mg PO TID PRN PRN Reason: Agitation Last Admin: 06/29/24 08:42 Dose: 50 mg Duloxetine HCl (Duloxetine Hcl 30 Mg Capsule.Dr) 30 mg PO BID [facility] Last Admin: 06/29/24 08:37 Dose: 30 mg Furosemide (Furosemide 20 Mg Tablet) 20 mg PO DAILY [facility]; Protocol Last Admin: 06/29/24 08:37 Dose: 20 mg Hydroxyzine HCl (Hydroxyzine Hcl 25 Mg Tablet) 25 mg PO Q6H PRN PRN Reason: mild anxiety Lidocaine (Lidocaine 4 % Patch Adh..Patch) 1 patch TRANSDERMA DAILY PRN PRN Reason: Pain, Mild (Pain Scale 1-3) Magnesium Hydroxide (Milk Of Magnesia 30 Ml Oral.Susp) 30 ml PO DAILY PRN PRN Reason: Constipation Mirtazapine (Mirtazapine 15 Mg Tablet) 15 mg PO BEDTIME [facility] Last Admin: 06/28/24 22:09 Dose: 15 mg Nicotine (Nicotine 14 Mg Patch.Td24) 14 mg TRANSDERMA DAILY [facility] Last Admin: 06/29/24 08:37 Dose: 14 mg Nicotine Polacrilex (Nicotine Polacrilex 2 Mg Gum) 4 mg BUCCAL Q2H PRN PRN Reason: Nicotine Cravings Nicotine Polacrilex (Nicotine Polacrilex Lozenge 4 Mg Lozenge) 4 mg BUCCAL Q2H PRN PRN Reason: Nicotine Cravings Last Admin: 06/28/24 22:23 Dose: 4 mg Prazosin HCl (Prazosin Hcl 1 Mg Capsule) 2 mg PO BEDTIME [facility]; Protocol Last Admin: 06/28/24 22:16 Dose: 2 mg Propranolol HCl (Propranolol Hcl 20 Mg Tablet) 20 mg PO TID PRN; Protocol PRN Reason: Anxiety Last Admin: 06/29/24 08:42 Dose: 20 mg Trazodone HCl (Trazodone Hcl 50 Mg Tablet) 50 mg PO BEDTIME MRX1 PRN PRN Reason: Insomnia Allergies Allergies Allergy/AdvReac Type Severity Reaction Status Date / Time No Known Allergies Allergy Verified 06/27/24 08:58 Assessment & Plan Assessment & Plan (1) Mixed emotional features as adjustment reaction: Status: Acute Code(s): F43.29 - Adjustment disorder with other symptoms (2) Depression: Status: Acute Code(s): F32.A - Depression, unspecified (3) Opioid use disorder, moderate, in early remission, on maintenance therapy, dependence: Status: Acute Code(s): F11.21 - Opioid dependence, in remission (4) UTI (urinary tract infection): Status: Acute Code(s): N39.0 - Urinary tract infection, site not specified Plan 06/29- Improving. Trileptal 150 mg tid (anxiety) Klonopin 0.5 mg bid prn anxiety until 07/02) Pt/team to apply to [facility] Reason for continued inpatient stay Substantial Risk for: rapid decompensation Time Spent With Patient Time: Total time managing care of this patient today ____ minutes.
[2024-06-29] MEDS: Nicotine Polacrilex Lozenge 4 MG LOZENGE BUCCAL (12:56)
[2024-06-29] MEDS: Buprenorphine/Naloxone 8/2 mg FILM 1 FILM SUBLINGUAL (15:51)
[2024-06-29] MEDS: clonazePAM 0.5 MG TABLET PO (17:27)
[2024-06-29] MEDS: Prazosin HCL 1 MG CAPSULE 2 MG PO (21:31)
[2024-06-29] MEDS: OXcarbazepine 150 MG TABLET PO (21:37)
[2024-06-29] MEDS: Mirtazapine 15 MG TABLET PO (21:37)
[2024-06-30 08:00] VITALS: BP 127/82; PULSE 76; TEMP 36.4; O2SAT 96
--- NOTE | 2024-06-30 08:17 | PC.NURSE ---
Approached pt with her Suboxone and other meds at 8:15. Pt requested that she gets her Suboxone later after breakfast.
[2024-06-30] MEDS: Buprenorphine/Naloxone 8/2 mg FILM 2 FILM SUBLINGUAL (08:36)
[2024-06-30] MEDS: Nicotine 14 MG PATCH.TD24 TRANSDERMA (08:36)
[2024-06-30] MEDS: DULoxetine HCl 30 MG CAPSULE.DR PO ×2 (08:37→21:14)
[2024-06-30 08:38] VITALS: BP 127/82; PULSE 76
[2024-06-30] MEDS: chlorproMAZINE HCl 25 MG TABLET 50 MG PO ×3 (08:38→21:14)
[2024-06-30] MEDS: cefuroxime axetiL 250 MG TABLET PO ×2 (08:38→21:15)
[2024-06-30] MEDS: Atorvastatin Calcium 10 MG TABLET PO (08:38)
[2024-06-30] MEDS: Propranolol HCL 20 MG TABLET PO ×3 (08:38→21:15)
[2024-06-30] MEDS: Furosemide 20 MG TABLET PO (08:39)
[2024-06-30] MEDS: OXcarbazepine 150 MG TABLET PO ×3 (08:39→21:13)
[2024-06-30] MEDS: Nicotine Polacrilex Lozenge 4 MG LOZENGE BUCCAL ×2 (11:18→15:16)
[2024-06-30] MEDS: clonazePAM 0.5 MG TABLET PO ×2 (11:18→16:08)
--- NOTE | 2024-06-30 15:12 | P.PNPSI_ITS ---
Subjective Subjective Date of Service: 06/30/24 Reason For Visit: depression Subjective Notes: Conditional Voluntary Healthcare Proxy: No Guardianship: No Medical Problems Affecting Mental Status: No Interim History: A better day Cleo Mast brought her belongings and was able to meet with her to review her discharge which she found helpful and is grateful for. She is pleased to apply to their TSS as she has a 3 month wait for reapplication to her previous program. Tolerating Trileptal, working in the milieu, groups and using my coping skills like I should be . Medication Compliance: Yes Side effects from medications: No Attending Groups: Yes Review of Systems Acute medical concerns: No Medical Review of Systems: unchanged Review of Systems Review of Systems Yes all other systems are reviewed and are negative Mental Status Exam Mental Status Exam Patient Appearance: Appropriate Patient Orientation: Person, Place, Time and Situation Level of Consciousness: Alert Patient Behavior: Appropriate, Talkative, Cooperative and Good Eye Contact Mood Description: Depressed Affect Description: Flat Patient Cognition Impaired: No Ability to Follow Directions: Good Speech Pattern: Spontaneous Speech Memory Description: Intact Hallucinations: None Delusions: Not Present Thought Process: Rumination Thought Content: positive for Circumstantial and positive for Perseveration Judgement: Good Diagnostics Vital Signs (24Hr): Vital Signs - 24 hr 06/29/24 20:00 06/29/24 21:25 06/29/24 21:31 Temperature 97.0 F 97.5 F Pulse Rate 78 75 Blood Pressure 90/53 L 96/56 L 96/56 L Pulse Oximetry 95 96 Oxygen Delivery Method Room Air Room Air 06/29/24 21:38 06/30/24 08:00 06/30/24 08:38 Temperature 97.6 F Pulse Rate 75 76 76 Blood Pressure 96/56 L 127/82 127/82 Pulse Oximetry 96 Oxygen Delivery Method Room Air BMI result Body Mass Index 24.8 Labs 06/27/24 12:05 06/27/24 12:05 Medications Medications Current Medications Acetaminophen (Acetaminophen 325 Mg Tablet) 650 mg PO Q6H PRN PRN Reason: Headache/Pain, Scale 1-10 Last Admin: 06/27/24 20:34 Dose: 650 mg Al Hydroxide/Mg Hydroxide (Magnesium Hydrox/Alum Hydrox 30 Ml Oral.Susp) 30 ml PO Q6H PRN PRN Reason: Heartburn/Nausea Atorvastatin Calcium (Atorvastatin Calcium 10 Mg Tablet) 10 mg PO DAILY [facility] Last Admin: 06/30/24 08:38 Dose: 10 mg Buprenorphine/Naloxone (Buprenorphine/Naloxone 8/2 Mg Film) 2 film SUBLINGUAL DAILY@0800 [facility] Last Admin: 06/30/24 08:36 Dose: 2 film Buprenorphine/Naloxone (Buprenorphine/Naloxone 8/2 Mg Film) 1 film SUBLINGUAL DAILY@1600 [facility] Last Admin: 06/29/24 15:51 Dose: 1 film Cefuroxime Axetil (Cefuroxime Axetil 250 Mg Tablet) 250 mg PO BID [facility] Last Admin: 06/30/24 08:38 Dose: 250 mg Chlorpromazine HCl (Chlorpromazine Hcl 25 Mg Tablet) 50 mg PO TID [facility] Last Admin: 06/30/24 14:43 Dose: 50 mg Clonazepam (Clonazepam 0.5 Mg Tablet) 0.5 mg PO BID PRN PRN Reason: Anxiety Stop: 07/02/24 07:00 Last Admin: 06/30/24 11:18 Dose: 0.5 mg Duloxetine HCl (Duloxetine Hcl 30 Mg Capsule.Dr) 30 mg PO BID [facility] Last Admin: 06/30/24 08:37 Dose: 30 mg Furosemide (Furosemide 20 Mg Tablet) 20 mg PO DAILY [facility]; Protocol Last Admin: 06/30/24 08:39 Dose: 20 mg Hydroxyzine HCl (Hydroxyzine Hcl 25 Mg Tablet) 25 mg PO Q6H PRN PRN Reason: mild anxiety Lidocaine (Lidocaine 4 % Patch Adh..Patch) 1 patch TRANSDERMA DAILY PRN PRN Reason: Pain, Mild (Pain Scale 1-3) Magnesium Hydroxide (Milk Of Magnesia 30 Ml Oral.Susp) 30 ml PO DAILY PRN PRN Reason: Constipation Mirtazapine (Mirtazapine 15 Mg Tablet) 15 mg PO BEDTIME [facility] Last Admin: 06/29/24 21:37 Dose: 15 mg Nicotine (Nicotine 14 Mg Patch.Td24) 14 mg TRANSDERMA DAILY [facility] Last Admin: 06/30/24 08:36 Dose: 14 mg Nicotine Polacrilex (Nicotine Polacrilex 2 Mg Gum) 4 mg BUCCAL Q2H PRN PRN Reason: Nicotine Cravings Nicotine Polacrilex (Nicotine Polacrilex Lozenge 4 Mg Lozenge) 4 mg BUCCAL Q2H PRN PRN Reason: Nicotine Cravings Last Admin: 06/30/24 11:18 Dose: 4 mg Oxcarbazepine (Oxcarbazepine 150 Mg Tablet) 150 mg PO TID [facility] Last Admin: 06/30/24 14:44 Dose: 150 mg Prazosin HCl (Prazosin Hcl 1 Mg Capsule) 2 mg PO BEDTIME [facility]; Protocol Last Admin: 06/29/24 21:31 Dose: 2 mg Propranolol HCl (Propranolol Hcl 20 Mg Tablet) 20 mg PO TID [facility]; Protocol Last Admin: 06/30/24 08:38 Dose: 20 mg Trazodone HCl (Trazodone Hcl 50 Mg Tablet) 50 mg PO BEDTIME MRX1 PRN PRN Reason: Insomnia Allergies Allergies Allergy/AdvReac Type Severity Reaction Status Date / Time No Known Allergies Allergy Verified 06/27/24 08:58 Assessment & Plan Assessment & Plan (1) Mixed emotional features as adjustment reaction: Status: Acute Code(s): F43.29 - Adjustment disorder with other symptoms (2) Depression: Status: Acute Code(s): F32.A - Depression, unspecified (3) Opioid use disorder, moderate, in early remission, on maintenance therapy, dependence: Status: Acute Code(s): F11.21 - Opioid dependence, in remission (4) UTI (urinary tract infection): Status: Acute Code(s): N39.0 - Urinary tract infection, site not specified Plan 06/29- Improving. Trileptal 150 mg tid (anxiety) Klonopin 0.5 mg bid prn anxiety until 07/02) Pt/team to apply to [facility] 06/30: Continue current regime and plan. Tolerating Trileptal thus far Reason for continued inpatient stay Substantial Risk for: rapid decompensation Time Spent With Patient Time: Total time managing care of this patient today ____ minutes.
[2024-06-30 16:08] VITALS: BP 129/69; PULSE 75
[2024-06-30] MEDS: Buprenorphine/Naloxone 8/2 mg FILM 1 FILM SUBLINGUAL (16:09)
[2024-06-30 20:00] VITALS: BP 94/53; PULSE 70; TEMP 36.7; O2SAT 96
[2024-06-30 21:12] VITALS: BP 94/53
[2024-06-30] MEDS: Prazosin HCL 1 MG CAPSULE 2 MG PO (21:12)
[2024-06-30] MEDS: Acetaminophen 325 MG TABLET 650 MG PO (21:13)
[2024-06-30] MEDS: Mirtazapine 15 MG TABLET PO (21:14)
[2024-06-30 21:15] VITALS: BP 94/53; PULSE 70
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
[2024-07-01 08:32] VITALS: BP 103/72; PULSE 73; RESP 16; TEMP 36.6; O2SAT 99
--- NOTE | 2024-07-01 08:35 | PC.NURSE ---
suboxone; unable to administer within time frame d/t pt eating breakfast. Will reattempt after pt is done eating
[2024-07-01] MEDS: Nicotine 14 MG PATCH.TD24 TRANSDERMA (08:38)
[2024-07-01] MEDS: cefuroxime axetiL 250 MG TABLET PO ×2 (08:39→21:48)
[2024-07-01] MEDS: chlorproMAZINE HCl 25 MG TABLET 50 MG PO ×3 (08:39→21:49)
[2024-07-01] MEDS: DULoxetine HCl 30 MG CAPSULE.DR PO ×2 (08:39→21:47)
[2024-07-01] MEDS: OXcarbazepine 150 MG TABLET PO ×3 (08:39→21:50)
[2024-07-01] MEDS: Propranolol HCL 20 MG TABLET PO ×3 (08:39→21:47)
[2024-07-01] MEDS: Furosemide 20 MG TABLET PO (08:39)
[2024-07-01] MEDS: Buprenorphine/Naloxone 8/2 mg FILM 2 FILM SUBLINGUAL (08:39)
[2024-07-01] MEDS: Atorvastatin Calcium 10 MG TABLET PO (08:39)
[2024-07-01] MEDS: Lidocaine 4 % Patch ADH..PATCH 1 PATCH TRANSDERMA (08:46)
[2024-07-01] MEDS: Nicotine Polacrilex Lozenge 4 MG LOZENGE BUCCAL ×2 (11:30→18:11)
[2024-07-01] MEDS: clonazePAM 0.5 MG TABLET PO ×2 (11:30→18:10)
[2024-07-01 15:19] VITALS: BP 109/63; PULSE 86
[2024-07-01] MEDS: Buprenorphine/Naloxone 8/2 mg FILM 1 FILM SUBLINGUAL (15:35)
[2024-07-01 20:00] VITALS: BP 101/68; PULSE 69; TEMP 36.7; O2SAT 95
[2024-07-01 21:47] VITALS: BP 101/68; PULSE 65
[2024-07-01 21:49] VITALS: BP 101/68
[2024-07-01] MEDS: Prazosin HCL 1 MG CAPSULE 2 MG PO (21:49)
[2024-07-01] MEDS: Mirtazapine 15 MG TABLET PO (21:51)
[2024-07-02 08:00] VITALS: BP 106/62; PULSE 74; RESP 16; TEMP 36.4; O2SAT 95
[2024-07-02] MEDS: Lidocaine 4 % Patch ADH..PATCH 1 PATCH TRANSDERMA (08:34)
[2024-07-02] MEDS: Acetaminophen 325 MG TABLET 650 MG PO (08:35)
[2024-07-02] MEDS: Nicotine 14 MG PATCH.TD24 TRANSDERMA (08:35)
[2024-07-02] MEDS: Propranolol HCL 20 MG TABLET PO ×3 (08:35→20:16)
[2024-07-02] MEDS: Buprenorphine/Naloxone 8/2 mg FILM 2 FILM SUBLINGUAL (08:36)
[2024-07-02] MEDS: Atorvastatin Calcium 10 MG TABLET PO (08:36)
[2024-07-02] MEDS: OXcarbazepine 150 MG TABLET PO ×3 (08:36→20:16)
[2024-07-02] MEDS: Furosemide 20 MG TABLET PO (08:36)
[2024-07-02] MEDS: DULoxetine HCl 30 MG CAPSULE.DR PO ×2 (08:36→20:16)
[2024-07-02] MEDS: cefuroxime axetiL 250 MG TABLET PO ×2 (08:36→20:17)
[2024-07-02] MEDS: chlorproMAZINE HCl 25 MG TABLET 50 MG PO ×3 (08:36→20:17)
--- NOTE | 2024-07-02 11:37 | HO.PSYCHPN ---
Subjective Subjective Date of Service: 07/02/24 Reason For Visit: depression Subjective Notes: Conditional Voluntary Healthcare Proxy: No Guardianship: No Medical Problems Affecting Mental Status: No Interim History: 58 yo pretty much fell apart when her clonazepam renewal fell off and I took a few minutes to contact weekday provider to check to see if it was discontinued on purpose- let her know I was check with [place] about it and started crying in room woefully- feels she needs her klonopin Medication Compliance: Yes Side effects from medications: No Attending Groups: Yes Review of Systems Acute medical concerns: No Medical Review of Systems: unchanged Mental Status Exam Mental Status Exam Narrative: lying with back to provider crying about- her clonazepam Patient Appearance: Unkempt Patient Orientation: Person, Place, Time and Situation Level of Consciousness: Awake Patient Behavior: Dependent, Passive and Poor Eye Contact Mood Description: Sad and Apprehensive Affect Description: Blunted Patient Cognition Impaired: No Ability to Follow Directions: Fair Speech Pattern: Poor Articulation Hallucinations: None Delusions: Not Present Thought Process: Intact and Goal Oriented Thought Content: positive for Perseveration Depressive Symptoms: Increased Anxiety and Muscle Tension Judgement: Fair (-poor) Diagnostics Vital Signs (24Hr): Vital Signs - 24 hr 07/01/24 15:19 07/01/24 20:00 07/01/24 21:47 Temperature 98.0 F Pulse Rate 86 69 65 Respiratory Rate Blood Pressure 109/63 101/68 101/68 Pulse Oximetry 95 Oxygen Delivery Method Room Air 07/01/24 21:49 07/02/24 08:00 Temperature 97.6 F Pulse Rate 74 Respiratory Rate 16 Blood Pressure 101/68 106/62 Pulse Oximetry 95 Oxygen Delivery Method Room Air BMI result Body Mass Index 24.8 Labs 06/27/24 12:05 06/27/24 12:05 Medications Medications Current Medications Acetaminophen (Acetaminophen 325 Mg Tablet) 650 mg PO Q6H PRN PRN Reason: Headache/Pain, Scale 1-10 Last Admin: 07/02/24 08:35 Dose: 650 mg Al Hydroxide/Mg Hydroxide (Magnesium Hydrox/Alum Hydrox 30 Ml Oral.Susp) 30 ml PO Q6H PRN PRN Reason: Heartburn/Nausea Atorvastatin Calcium (Atorvastatin Calcium 10 Mg Tablet) 10 mg PO DAILY [facility] Last Admin: 07/02/24 08:36 Dose: 10 mg Buprenorphine/Naloxone (Buprenorphine/Naloxone 8/2 Mg Film) 2 film SUBLINGUAL DAILY@0800 [facility] Last Admin: 07/02/24 08:36 Dose: 2 film Buprenorphine/Naloxone (Buprenorphine/Naloxone 8/2 Mg Film) 1 film SUBLINGUAL DAILY@1600 [facility] Last Admin: 07/01/24 15:35 Dose: 1 film Cefuroxime Axetil (Cefuroxime Axetil 250 Mg Tablet) 250 mg PO BID [facility] Last Admin: 07/02/24 08:36 Dose: 250 mg Chlorpromazine HCl (Chlorpromazine Hcl 25 Mg Tablet) 50 mg PO TID [facility] Last Admin: 07/02/24 08:36 Dose: 50 mg Duloxetine HCl (Duloxetine Hcl 30 Mg Capsule.Dr) 30 mg PO BID [facility] Last Admin: 07/02/24 08:36 Dose: 30 mg Furosemide (Furosemide 20 Mg Tablet) 20 mg PO DAILY [facility]; Protocol Last Admin: 07/02/24 08:36 Dose: 20 mg Hydroxyzine HCl (Hydroxyzine Hcl 25 Mg Tablet) 25 mg PO Q6H PRN PRN Reason: mild anxiety Lidocaine (Lidocaine 4 % Patch Adh..Patch) 1 patch TRANSDERMA DAILY PRN PRN Reason: Pain, Mild (Pain Scale 1-3) Last Admin: 07/02/24 08:34 Dose: 1 patch Magnesium Hydroxide (Milk Of Magnesia 30 Ml Oral.Susp) 30 ml PO DAILY PRN PRN Reason: Constipation Mirtazapine (Mirtazapine 15 Mg Tablet) 15 mg PO BEDTIME [facility] Last Admin: 07/01/24 21:51 Dose: 15 mg Nicotine (Nicotine 14 Mg Patch.Td24) 14 mg TRANSDERMA DAILY [facility] Last Admin: 07/02/24 08:35 Dose: 14 mg Nicotine Polacrilex (Nicotine Polacrilex 2 Mg Gum) 4 mg BUCCAL Q2H PRN PRN Reason: Nicotine Cravings Nicotine Polacrilex (Nicotine Polacrilex Lozenge 4 Mg Lozenge) 4 mg BUCCAL Q2H PRN PRN Reason: Nicotine Cravings Last Admin: 07/01/24 18:11 Dose: 4 mg Oxcarbazepine (Oxcarbazepine 150 Mg Tablet) 150 mg PO TID [facility] Last Admin: 07/02/24 08:36 Dose: 150 mg Prazosin HCl (Prazosin Hcl 1 Mg Capsule) 2 mg PO BEDTIME [facility]; Protocol Last Admin: 07/01/24 21:49 Dose: 2 mg Propranolol HCl (Propranolol Hcl 20 Mg Tablet) 20 mg PO TID [facility]; Protocol Last Admin: 07/02/24 08:35 Dose: 20 mg Trazodone HCl (Trazodone Hcl 50 Mg Tablet) 50 mg PO BEDTIME MRX1 PRN PRN Reason: Insomnia Allergies Allergies Allergy/AdvReac Type Severity Reaction Status Date / Time No Known Allergies Allergy Verified 06/27/24 08:58 Assessment & Plan Assessment & Plan (1) Mixed emotional features as adjustment reaction: Status: Acute Code(s): F43.29 - Adjustment disorder with other symptoms (2) Depression: Status: Acute Code(s): F32.A - Depression, unspecified (3) Opioid use disorder, moderate, in early remission, on maintenance therapy, dependence: Status: Acute Code(s): F11.21 - Opioid dependence, in remission (4) UTI (urinary tract infection): Status: Acute Code(s): N39.0 - Urinary tract infection, site not specified Plan 06/29- Improving. Trileptal 150 mg tid (anxiety) Klonopin 0.5 mg bid prn anxiety until 07/02) Pt/team to apply to [facility] 06/30: Continue current regime and plan. Tolerating Trileptal thus far 07/01/ [facility] 07/02 [facility] Patient educated on: medication risk/benefits Informed Consent: understands Reason for continued inpatient stay Substantial Risk for: rapid decompensation Time Spent With Patient Time: Total time managing care of this patient today ____ minutes.
[2024-07-02] MEDS: clonazePAM 0.5 MG TABLET PO ×2 (13:26→19:06)
[2024-07-02] MEDS: Buprenorphine/Naloxone 8/2 mg FILM 1 FILM SUBLINGUAL (15:49)
[2024-07-02 19:36] VITALS: BP 96/55; PULSE 66; TEMP 36.7; O2SAT 98
[2024-07-02] MEDS: Mirtazapine 15 MG TABLET PO (20:17)
[2024-07-02] MEDS: Prazosin HCL 1 MG CAPSULE 2 MG PO (20:17)
[2024-07-03 07:56] VITALS: BP 85/53; PULSE 74; TEMP 36.1; O2SAT 94
[2024-07-03] MEDS: Buprenorphine/Naloxone 8/2 mg FILM 2 FILM SUBLINGUAL (08:31)
[2024-07-03] MEDS: Nicotine 14 MG PATCH.TD24 TRANSDERMA (08:31)
[2024-07-03] MEDS: DULoxetine HCl 30 MG CAPSULE.DR PO ×2 (08:32→20:51)
[2024-07-03] MEDS: chlorproMAZINE HCl 25 MG TABLET 50 MG PO ×3 (08:32→20:51)
[2024-07-03] MEDS: cefuroxime axetiL 250 MG TABLET PO ×2 (08:32→20:42)
[2024-07-03] MEDS: OXcarbazepine 150 MG TABLET PO ×3 (08:32→20:52)
[2024-07-03] MEDS: Atorvastatin Calcium 10 MG TABLET PO (08:32)
[2024-07-03 08:37] VITALS: BP 113/59; PULSE 77
[2024-07-03] MEDS: Propranolol HCL 20 MG TABLET PO ×3 (08:37→20:51)
[2024-07-03] MEDS: Furosemide 20 MG TABLET PO (08:37)
[2024-07-03] MEDS: clonazePAM 0.5 MG TABLET PO ×2 (10:48→18:07)
--- NOTE | 2024-07-03 13:15 | P.PNPSI_ITS ---
Subjective Subjective Date of Service: 07/03/24 Reason For Visit: depression Subjective Notes: Conditional Voluntary Healthcare Proxy: No Guardianship: No Medical Problems Affecting Mental Status: No Interim History: Talked with her mother over the weekend, states this was a positive conversation. Reflective of this past week. Hopeful for her applications for ongoing treatment, yet cautious Discussed ordering recovery coaching and AA supports which she is in agreement with. Medication Compliance: Yes Side effects from medications: No Attending Groups: Yes Review of Systems Acute medical concerns: No Medical Review of Systems: unchanged Review of Systems Review of Systems Denies Mental Status Exam Mental Status Exam Patient Appearance: Appropriate Patient Orientation: Person, Place, Time and Situation Level of Consciousness: Alert Patient Behavior: Talkative and Good Eye Contact Mood Description: Depressed Affect Description: Flat Patient Cognition Impaired: No Ability to Follow Directions: Good Speech Pattern: Spontaneous Speech Memory Description: Intact Hallucinations: None Delusions: Not Present Thought Process: Goal Oriented Thought Content: positive for Goal Oriented Depressive Symptoms: Increased Anxiety and Low Self Esteem Judgement: Good Diagnostics Vital Signs (24Hr): Vital Signs - 24 hr 07/02/24 19:36 07/03/24 07:56 07/03/24 08:37 Temperature 98.1 F 97 F Pulse Rate 66 74 Blood Pressure 96/55 L 85/53 L 113/59 L Pulse Oximetry 98 94 Oxygen Delivery Method Room Air Room Air 07/03/24 08:37 Temperature Pulse Rate 77 Blood Pressure 113/59 L Pulse Oximetry Oxygen Delivery Method BMI result Body Mass Index 24.8 Labs 06/27/24 12:05 06/27/24 12:05 Medications Medications Current Medications Acetaminophen (Acetaminophen 325 Mg Tablet) 650 mg PO Q6H PRN PRN Reason: Headache/Pain, Scale 1-10 Last Admin: 07/02/24 08:35 Dose: 650 mg Al Hydroxide/Mg Hydroxide (Magnesium Hydrox/Alum Hydrox 30 Ml Oral.Susp) 30 ml PO Q6H PRN PRN Reason: Heartburn/Nausea Atorvastatin Calcium (Atorvastatin Calcium 10 Mg Tablet) 10 mg PO DAILY [facility] Last Admin: 07/03/24 08:32 Dose: 10 mg Buprenorphine/Naloxone (Buprenorphine/Naloxone 8/2 Mg Film) 2 film SUBLINGUAL DAILY@0800 [facility] Last Admin: 07/03/24 08:31 Dose: 2 film Buprenorphine/Naloxone (Buprenorphine/Naloxone 8/2 Mg Film) 1 film SUBLINGUAL DAILY@1600 [facility] Last Admin: 07/02/24 15:49 Dose: 1 film Cefuroxime Axetil (Cefuroxime Axetil 250 Mg Tablet) 250 mg PO BID [facility] Last Admin: 07/03/24 08:32 Dose: 250 mg Chlorpromazine HCl (Chlorpromazine Hcl 25 Mg Tablet) 50 mg PO TID [facility] Last Admin: 07/03/24 08:32 Dose: 50 mg Clonazepam (Clonazepam 0.5 Mg Tablet) 0.5 mg PO BID PRN PRN Reason: anxiety/restlessness Last Admin: 07/03/24 10:48 Dose: 0.5 mg Duloxetine HCl (Duloxetine Hcl 30 Mg Capsule.Dr) 30 mg PO BID [facility] Last Admin: 07/03/24 08:32 Dose: 30 mg Furosemide (Furosemide 20 Mg Tablet) 20 mg PO DAILY [facility]; Protocol Last Admin: 07/03/24 08:37 Dose: 20 mg Hydroxyzine HCl (Hydroxyzine Hcl 25 Mg Tablet) 25 mg PO Q6H PRN PRN Reason: mild anxiety Lidocaine (Lidocaine 4 % Patch Adh..Patch) 1 patch TRANSDERMA DAILY PRN PRN Reason: Pain, Mild (Pain Scale 1-3) Last Admin: 07/02/24 08:34 Dose: 1 patch Magnesium Hydroxide (Milk Of Magnesia 30 Ml Oral.Susp) 30 ml PO DAILY PRN PRN Reason: Constipation Mirtazapine (Mirtazapine 15 Mg Tablet) 15 mg PO BEDTIME [facility] Last Admin: 07/02/24 20:17 Dose: 15 mg Nicotine (Nicotine 14 Mg Patch.Td24) 14 mg TRANSDERMA DAILY [facility] Last Admin: 07/03/24 08:31 Dose: 14 mg Nicotine Polacrilex (Nicotine Polacrilex 2 Mg Gum) 4 mg BUCCAL Q2H PRN PRN Reason: Nicotine Cravings Nicotine Polacrilex (Nicotine Polacrilex Lozenge 4 Mg Lozenge) 4 mg BUCCAL Q2H PRN PRN Reason: Nicotine Cravings Last Admin: 07/01/24 18:11 Dose: 4 mg Oxcarbazepine (Oxcarbazepine 150 Mg Tablet) 150 mg PO TID [facility] Last Admin: 07/03/24 08:32 Dose: 150 mg Prazosin HCl (Prazosin Hcl 1 Mg Capsule) 2 mg PO BEDTIME [facility]; Protocol Last Admin: 07/02/24 20:17 Dose: 2 mg Propranolol HCl (Propranolol Hcl 20 Mg Tablet) 20 mg PO TID [facility]; Protocol Last Admin: 07/03/24 08:37 Dose: 20 mg Trazodone HCl (Trazodone Hcl 50 Mg Tablet) 50 mg PO BEDTIME MRX1 PRN PRN Reason: Insomnia Allergies Allergies Allergy/AdvReac Type Severity Reaction Status Date / Time No Known Allergies Allergy Verified 06/27/24 08:58 Assessment & Plan Assessment & Plan (1) Mixed emotional features as adjustment reaction: Status: Acute Code(s): F43.29 - Adjustment disorder with other symptoms (2) Depression: Status: Acute Code(s): F32.A - Depression, unspecified (3) Opioid use disorder, moderate, in early remission, on maintenance therapy, dependence: Status: Acute Code(s): F11.21 - Opioid dependence, in remission (4) UTI (urinary tract infection): Status: Acute Code(s): N39.0 - Urinary tract infection, site not specified Plan 06/29- Improving. Trileptal 150 mg tid (anxiety) Klonopin 0.5 mg bid prn anxiety until 07/02) Pt/team to apply to [facility] 06/30: Continue current regime and plan. Tolerating Trileptal thus far 07/01/ [facility] 07[facility] Continue plan. Pt states trileptal is helpful thus far. Reason for continued inpatient stay Substantial Risk for: rapid decompensation Time Spent With Patient Time: Total time managing care of this patient today ____ minutes.
[2024-07-03 15:51] VITALS: BP 140/71; PULSE 94
[2024-07-03] MEDS: Buprenorphine/Naloxone 8/2 mg FILM 1 FILM SUBLINGUAL (15:52)
[2024-07-03 20:00] VITALS: BP 106/52; PULSE 70; RESP 16; TEMP 36.6; O2SAT 96
[2024-07-03 20:51] VITALS: BP 106/52; PULSE 70
[2024-07-03] MEDS: Mirtazapine 15 MG TABLET PO (20:51)
[2024-07-03 20:52] VITALS: BP 106/52
[2024-07-03] MEDS: Prazosin HCL 1 MG CAPSULE 2 MG PO (20:52)
[2024-07-04 08:00] VITALS: BP 108/74; PULSE 79; RESP 18; TEMP 36.6; O2SAT 96
[2024-07-04] MEDS: Nicotine 14 MG PATCH.TD24 TRANSDERMA (09:07)
[2024-07-04] MEDS: Buprenorphine/Naloxone 8/2 mg FILM 2 FILM SUBLINGUAL (09:08)
[2024-07-04] MEDS: cefuroxime axetiL 250 MG TABLET PO ×2 (09:09→22:22)
[2024-07-04] MEDS: Propranolol HCL 20 MG TABLET PO ×3 (09:09→22:21)
[2024-07-04] MEDS: chlorproMAZINE HCl 25 MG TABLET 50 MG PO ×3 (09:09→22:22)
[2024-07-04] MEDS: Atorvastatin Calcium 10 MG TABLET PO (09:09)
[2024-07-04] MEDS: Furosemide 20 MG TABLET PO (09:09)
[2024-07-04] MEDS: OXcarbazepine 150 MG TABLET PO ×3 (09:09→22:21)
[2024-07-04] MEDS: DULoxetine HCl 30 MG CAPSULE.DR PO ×2 (09:09→22:22)
[2024-07-04] MEDS: clonazePAM 0.5 MG TABLET PO ×2 (11:08→17:58)
[2024-07-04] MEDS: Nicotine Polacrilex Lozenge 4 MG LOZENGE BUCCAL (11:49)
--- NOTE | 2024-07-04 14:55 | PC.NURSE ---
Cleo met with addiction services which was interrupted with her phone interview with CYNTHIA Mast. They will follow up with her again tomorrow.
[2024-07-04 15:37] VITALS: BP 121/60; PULSE 77
[2024-07-04] MEDS: Buprenorphine/Naloxone 8/2 mg FILM 1 FILM SUBLINGUAL (15:37)
--- NOTE | 2024-07-04 16:04 | MHC.RECOVRN ---
Received request for [facility] to provide pt. with resources for recovery coaching and fellowship meetings. Pt A&Ox3, pleasant and cooperative with interview. Pt reviewed her hx including recent d/c from sober living due to vaping in house. Pt working with SW for placement. T/W provided pt with [facility] information, AA meeting info and pathways to recovery. [facility] referral previously placed. Pt denies any further need for services at this time. [facility] available PRN.
--- NOTE | 2024-07-04 16:35 | HO.PSYCHPN ---
Subjective Subjective Date of Service: 07/04/24 Reason For Visit: depression Subjective Notes: Conditional Voluntary Healthcare Proxy: No Guardianship: No Medical Problems Affecting Mental Status: No Interim History: Pt is seen in the milieu. Options for continued treatment are being assessed by the team. Team reports denial by [facility] due to their feeling she needs a dual dx program. Denial by [facility] due to pt being sober too long. I just want to continue my recovery. Medication Compliance: Yes Side effects from medications: No Attending Groups: Yes Review of Systems Acute medical concerns: No Medical Review of Systems: unchanged Review of Systems Review of Systems Denies Mental Status Exam Mental Status Exam Patient Appearance: Appropriate Patient Orientation: Person, Place, Time and Situation Level of Consciousness: Alert Patient Behavior: Talkative and Good Eye Contact Mood Description: Depressed Affect Description: Flat Patient Cognition Impaired: No Ability to Follow Directions: Good Speech Pattern: Spontaneous Speech Memory Description: Intact Hallucinations: None Delusions: Not Present Thought Process: Goal Oriented Thought Content: positive for Goal Oriented Depressive Symptoms: Increased Anxiety and Low Self Esteem Judgement: Good Diagnostics Vital Signs (24Hr): Vital Signs - 24 hr 07/03/24 20:00 07/03/24 20:51 07/03/24 20:52 Temperature 97.8 F Pulse Rate 70 70 Respiratory Rate 16 Blood Pressure 106/52 L 106/52 L 106/52 L Pulse Oximetry 96 Oxygen Delivery Method Room Air 07/04/24 08:00 07/04/24 15:37 Temperature 97.8 F Pulse Rate 79 77 Respiratory Rate 18 Blood Pressure 108/74 121/60 Pulse Oximetry 96 Oxygen Delivery Method Room Air BMI result Body Mass Index 24.8 Labs 06/27/24 12:05 06/27/24 12:05 Medications Medications Current Medications Acetaminophen (Acetaminophen 325 Mg Tablet) 650 mg PO Q6H PRN PRN Reason: Headache/Pain, Scale 1-10 Last Admin: 07/02/24 08:35 Dose: 650 mg Al Hydroxide/Mg Hydroxide (Magnesium Hydrox/Alum Hydrox 30 Ml Oral.Susp) 30 ml PO Q6H PRN PRN Reason: Heartburn/Nausea Atorvastatin Calcium (Atorvastatin Calcium 10 Mg Tablet) 10 mg PO DAILY [facility] Last Admin: 07/04/24 09:09 Dose: 10 mg Buprenorphine/Naloxone (Buprenorphine/Naloxone 8/2 Mg Film) 2 film SUBLINGUAL DAILY@0800 [facility] Last Admin: 07/04/24 09:08 Dose: 2 film Buprenorphine/Naloxone (Buprenorphine/Naloxone 8/2 Mg Film) 1 film SUBLINGUAL DAILY@1600 [facility] Last Admin: 07/04/24 15:37 Dose: 1 film Cefuroxime Axetil (Cefuroxime Axetil 250 Mg Tablet) 250 mg PO BID [facility] Last Admin: 07/04/24 09:09 Dose: 250 mg Chlorpromazine HCl (Chlorpromazine Hcl 25 Mg Tablet) 50 mg PO TID [facility] Last Admin: 07/04/24 15:36 Dose: 50 mg Clonazepam (Clonazepam 0.5 Mg Tablet) 0.5 mg PO BID PRN PRN Reason: anxiety/restlessness Last Admin: 07/04/24 11:08 Dose: 0.5 mg Duloxetine HCl (Duloxetine Hcl 30 Mg Capsule.Dr) 30 mg PO BID [facility] Last Admin: 07/04/24 09:09 Dose: 30 mg Furosemide (Furosemide 20 Mg Tablet) 20 mg PO DAILY [facility]; Protocol Last Admin: 07/04/24 09:09 Dose: 20 mg Hydroxyzine HCl (Hydroxyzine Hcl 25 Mg Tablet) 25 mg PO Q6H PRN PRN Reason: mild anxiety Lidocaine (Lidocaine 4 % Patch Adh..Patch) 1 patch TRANSDERMA DAILY PRN PRN Reason: Pain, Mild (Pain Scale 1-3) Last Admin: 07/02/24 08:34 Dose: 1 patch Magnesium Hydroxide (Milk Of Magnesia 30 Ml Oral.Susp) 30 ml PO DAILY PRN PRN Reason: Constipation Mirtazapine (Mirtazapine 15 Mg Tablet) 15 mg PO BEDTIME [facility] Last Admin: 07/03/24 20:51 Dose: 15 mg Nicotine (Nicotine 14 Mg Patch.Td24) 14 mg TRANSDERMA DAILY [facility] Last Admin: 07/04/24 09:07 Dose: 14 mg Nicotine Polacrilex (Nicotine Polacrilex 2 Mg Gum) 4 mg BUCCAL Q2H PRN PRN Reason: Nicotine Cravings Nicotine Polacrilex (Nicotine Polacrilex Lozenge 4 Mg Lozenge) 4 mg BUCCAL Q2H PRN PRN Reason: Nicotine Cravings Last Admin: 07/04/24 11:49 Dose: 4 mg Oxcarbazepine (Oxcarbazepine 150 Mg Tablet) 150 mg PO TID [facility] Last Admin: 07/04/24 15:36 Dose: 150 mg Prazosin HCl (Prazosin Hcl 1 Mg Capsule) 2 mg PO BEDTIME [facility]; Protocol Last Admin: 07/03/24 20:52 Dose: 2 mg Propranolol HCl (Propranolol Hcl 20 Mg Tablet) 20 mg PO TID [facility]; Protocol Last Admin: 07/04/24 15:37 Dose: 20 mg Trazodone HCl (Trazodone Hcl 50 Mg Tablet) 50 mg PO BEDTIME MRX1 PRN PRN Reason: Insomnia Allergies Allergies Allergy/AdvReac Type Severity Reaction Status Date / Time No Known Allergies Allergy Verified 06/27/24 08:58 Assessment & Plan Assessment & Plan (1) Mixed emotional features as adjustment reaction: Status: Acute Code(s): F43.29 - Adjustment disorder with other symptoms (2) Depression: Status: Acute Code(s): F32.A - Depression, unspecified (3) Opioid use disorder, moderate, in early remission, on maintenance therapy, dependence: Status: Acute Code(s): F11.21 - Opioid dependence, in remission (4) UTI (urinary tract infection): Status: Acute Code(s): N39.0 - Urinary tract infection, site not specified Plan 06/29- Improving. Trileptal 150 mg tid (anxiety) Klonopin 0.5 mg bid prn anxiety until 07/02) Pt/team to apply to [facility] 06/30: Continue current regime and plan. Tolerating Trileptal thus far 07/01/ [facility] current [facility], regime. Reason for continued inpatient stay Substantial Risk for: rapid decompensation Time Spent With Patient Time: Total time managing care of this patient today ____ minutes.
[2024-07-04 20:00] VITALS: BP 99/51; PULSE 66; RESP 16; TEMP 36.4; O2SAT 95
[2024-07-04 22:21] VITALS: BP 121/61; PULSE 66
[2024-07-04] MEDS: Mirtazapine 15 MG TABLET PO (22:21)
[2024-07-04 22:22] VITALS: BP 121/61
[2024-07-04] MEDS: Prazosin HCL 1 MG CAPSULE 2 MG PO (22:22)
[2024-07-05 08:11] VITALS: BP 102/55; PULSE 80; TEMP 36.3; O2SAT 94
[2024-07-05] MEDS: Furosemide 20 MG TABLET PO (08:59)
[2024-07-05 09:00] VITALS: PULSE 80
[2024-07-05] MEDS: Atorvastatin Calcium 10 MG TABLET PO (09:00)
[2024-07-05] MEDS: DULoxetine HCl 30 MG CAPSULE.DR PO ×2 (09:00→21:54)
[2024-07-05] MEDS: Propranolol HCL 20 MG TABLET PO ×3 (09:00→21:55)
[2024-07-05] MEDS: Nicotine 14 MG PATCH.TD24 TRANSDERMA (09:01)
[2024-07-05] MEDS: chlorproMAZINE HCl 25 MG TABLET 50 MG PO ×3 (09:01→21:55)
[2024-07-05] MEDS: Buprenorphine/Naloxone 8/2 mg FILM 2 FILM SUBLINGUAL (09:01)
[2024-07-05] MEDS: cefuroxime axetiL 250 MG TABLET PO ×2 (09:01→21:54)
[2024-07-05] MEDS: OXcarbazepine 150 MG TABLET PO ×3 (09:02→21:55)
--- NOTE | 2024-07-05 09:51 | P.PNPSI_ITS ---
Subjective Subjective Date of Service: 07/05/24 Reason For Visit: depression Subjective Notes: Conditional Voluntary Healthcare Proxy: No Guardianship: No Medical Problems Affecting Mental Status: No Interim History: It is hard to remain positive. I hope [facility] will accept me. Discussed decline from TSS programs with rationales of too long being sober and need for more intensive tx. Discussed her thoughts regarding how these decisions are made. Moving forward to other options. Attempting to remain positive. Medication Compliance: Yes Side effects from medications: No Attending Groups: Yes Review of Systems Acute medical concerns: No Review of Systems Review of Systems Denies Mental Status Exam Mental Status Exam Patient Appearance: Appropriate Patient Orientation: Person, Place, Time and Situation Level of Consciousness: Alert Patient Behavior: Talkative and Good Eye Contact Mood Description: Depressed Affect Description: Flat Patient Cognition Impaired: No Ability to Follow Directions: Good Speech Pattern: Spontaneous Speech Memory Description: Intact Hallucinations: None Delusions: Not Present Thought Process: Goal Oriented Thought Content: positive for Goal Oriented Depressive Symptoms: Increased Anxiety and Low Self Esteem Judgement: Good Diagnostics Vital Signs (24Hr): Vital Signs - 24 hr 07/04/24 15:37 07/04/24 20:00 07/04/24 22:21 Temperature 97.6 F Pulse Rate 77 66 66 Respiratory Rate 16 Blood Pressure 121/60 99/51 L 121/61 Pulse Oximetry 95 Oxygen Delivery Method Room Air 07/04/24 22:22 07/05/24 08:11 07/05/24 09:00 Temperature 97.4 F Pulse Rate 80 80 Respiratory Rate Blood Pressure 121/61 102/55 L Pulse Oximetry 94 Oxygen Delivery Method Room Air BMI result Body Mass Index 24.8 Labs 06/27/24 12:05 06/27/24 12:05 Medications Medications Current Medications Acetaminophen (Acetaminophen 325 Mg Tablet) 650 mg PO Q6H PRN PRN Reason: Headache/Pain, Scale 1-10 Last Admin: 07/02/24 08:35 Dose: 650 mg Al Hydroxide/Mg Hydroxide (Magnesium Hydrox/Alum Hydrox 30 Ml Oral.Susp) 30 ml PO Q6H PRN PRN Reason: Heartburn/Nausea Atorvastatin Calcium (Atorvastatin Calcium 10 Mg Tablet) 10 mg PO DAILY [facility] Last Admin: 07/05/24 09:00 Dose: 10 mg Buprenorphine/Naloxone (Buprenorphine/Naloxone 8/2 Mg Film) 2 film SUBLINGUAL DAILY@0800 [facility] Last Admin: 07/05/24 09:01 Dose: 2 film Buprenorphine/Naloxone (Buprenorphine/Naloxone 8/2 Mg Film) 1 film SUBLINGUAL DAILY@1600 [facility] Last Admin: 07/04/24 15:37 Dose: 1 film Cefuroxime Axetil (Cefuroxime Axetil 250 Mg Tablet) 250 mg PO BID [facility] Last Admin: 07/05/24 09:01 Dose: 250 mg Chlorpromazine HCl (Chlorpromazine Hcl 25 Mg Tablet) 50 mg PO TID [facility] Last Admin: 07/05/24 09:01 Dose: 50 mg Clonazepam (Clonazepam 0.5 Mg Tablet) 0.5 mg PO BID PRN PRN Reason: anxiety/restlessness Last Admin: 07/04/24 17:58 Dose: 0.5 mg Duloxetine HCl (Duloxetine Hcl 30 Mg Capsule.Dr) 30 mg PO BID [facility] Last Admin: 07/05/24 09:00 Dose: 30 mg Furosemide (Furosemide 20 Mg Tablet) 20 mg PO DAILY [facility]; Protocol Last Admin: 07/05/24 08:59 Dose: 20 mg Hydroxyzine HCl (Hydroxyzine Hcl 25 Mg Tablet) 25 mg PO Q6H PRN PRN Reason: mild anxiety Lidocaine (Lidocaine 4 % Patch Adh..Patch) 1 patch TRANSDERMA DAILY PRN PRN Reason: Pain, Mild (Pain Scale 1-3) Last Admin: 07/02/24 08:34 Dose: 1 patch Magnesium Hydroxide (Milk Of Magnesia 30 Ml Oral.Susp) 30 ml PO DAILY PRN PRN Reason: Constipation Mirtazapine (Mirtazapine 15 Mg Tablet) 15 mg PO BEDTIME [facility] Last Admin: 07/04/24 22:21 Dose: 15 mg Nicotine (Nicotine 14 Mg Patch.Td24) 14 mg TRANSDERMA DAILY [facility] Last Admin: 07/05/24 09:01 Dose: 14 mg Nicotine Polacrilex (Nicotine Polacrilex 2 Mg Gum) 4 mg BUCCAL Q2H PRN PRN Reason: Nicotine Cravings Nicotine Polacrilex (Nicotine Polacrilex Lozenge 4 Mg Lozenge) 4 mg BUCCAL Q2H PRN PRN Reason: Nicotine Cravings Last Admin: 07/04/24 11:49 Dose: 4 mg Oxcarbazepine (Oxcarbazepine 150 Mg Tablet) 150 mg PO TID [facility] Last Admin: 07/05/24 09:02 Dose: 150 mg Prazosin HCl (Prazosin Hcl 1 Mg Capsule) 2 mg PO BEDTIME [facility]; Protocol Last Admin: 07/04/24 22:22 Dose: 2 mg Propranolol HCl (Propranolol Hcl 20 Mg Tablet) 20 mg PO TID [facility]; Protocol Last Admin: 07/05/24 09:00 Dose: 20 mg Trazodone HCl (Trazodone Hcl 50 Mg Tablet) 50 mg PO BEDTIME MRX1 PRN PRN Reason: Insomnia Allergies Allergies Allergy/AdvReac Type Severity Reaction Status Date / Time No Known Allergies Allergy Verified 06/27/24 08:58 Assessment & Plan Assessment & Plan (1) Mixed emotional features as adjustment reaction: Status: Acute Code(s): F43.29 - Adjustment disorder with other symptoms (2) Depression: Status: Acute Code(s): F32.A - Depression, unspecified (3) Opioid use disorder, moderate, in early remission, on maintenance therapy, dependence: Status: Acute Code(s): F11.21 - Opioid dependence, in remission (4) UTI (urinary tract infection): Status: Acute Code(s): N39.0 - Urinary tract infection, site not specified Plan 06/29- Improving. Trileptal 150 mg tid (anxiety) Klonopin 0.5 mg bid prn anxiety until 07/02) Pt/team to apply to [facility] 06/30: Continue current regime and plan. Tolerating Trileptal thus far 07/01/ CTP 07/02 renewed clonazepam - [facility] 07/04- continue current plan, regime. 07/05- continue current plan, regime. Reason for continued inpatient stay Substantial Risk for: rapid decompensation Time Spent With Patient Time: Total time managing care of this patient today ____ minutes.
[2024-07-05] MEDS: clonazePAM 0.5 MG TABLET PO ×2 (11:09→17:25)
[2024-07-05 15:08] VITALS: PULSE 76
[2024-07-05] MEDS: Buprenorphine/Naloxone 8/2 mg FILM 1 FILM SUBLINGUAL (16:14)
[2024-07-05 20:00] VITALS: BP 113/66; PULSE 77; RESP 16; TEMP 36.7; O2SAT 95
[2024-07-05] MEDS: Mirtazapine 15 MG TABLET PO (21:54)
[2024-07-05] MEDS: Prazosin HCL 1 MG CAPSULE 2 MG PO (21:55)
[2024-07-05] MEDS: Nicotine Polacrilex Lozenge 4 MG LOZENGE BUCCAL (22:20)
[2024-07-06] MEDS: clonazePAM 0.5 MG TABLET PO ×2 (04:06→20:54)
[2024-07-06 07:00] VITALS: BMI 27.5
[2024-07-06 08:00] VITALS: BP 112/74; PULSE 64; RESP 16; TEMP 36.2; O2SAT 96
[2024-07-06] MEDS: Buprenorphine/Naloxone 8/2 mg FILM 2 FILM SUBLINGUAL (09:07)
[2024-07-06 09:08] VITALS: BP 112/74
[2024-07-06] MEDS: chlorproMAZINE HCl 25 MG TABLET 50 MG PO ×3 (09:08→20:55)
[2024-07-06] MEDS: Furosemide 20 MG TABLET PO (09:08)
[2024-07-06] MEDS: Atorvastatin Calcium 10 MG TABLET PO (09:08)
[2024-07-06 09:09] VITALS: BP 112/74; PULSE 64
[2024-07-06] MEDS: DULoxetine HCl 30 MG CAPSULE.DR PO ×2 (09:09→20:54)
[2024-07-06] MEDS: OXcarbazepine 150 MG TABLET PO ×3 (09:09→20:55)
[2024-07-06] MEDS: Propranolol HCL 20 MG TABLET PO ×3 (09:09→20:53)
[2024-07-06] MEDS: Nicotine 14 MG PATCH.TD24 TRANSDERMA (09:10)
[2024-07-06] MEDS: cefuroxime axetiL 250 MG TABLET PO ×2 (09:14→20:54)
--- NOTE | 2024-07-06 12:19 | P.PNPSI_ITS ---
Subjective Subjective Date of Service: 07/06/24 Reason For Visit: depression Subjective Notes: Conditional Voluntary Healthcare Proxy: No Guardianship: No Medical Problems Affecting Mental Status: No Interim History: No, I am not sedated, I am discouraged-I have no where to go. Pt has not placement acceptance at this time. Discussed need to decrease meds- states she is just sad and discouraged. Hoping for an acceptance over the weekend. Quiet, visable in milieu. Supportive to others. Medication Compliance: Yes Side effects from medications: No Attending Groups: Intermittent Review of Systems Acute medical concerns: No Review of Systems Review of Systems Denies Mental Status Exam Mental Status Exam Patient Appearance: Appropriate Patient Orientation: Person, Place, Time and Situation Level of Consciousness: Alert Patient Behavior: Talkative and Good Eye Contact Mood Description: Depressed Affect Description: Flat Patient Cognition Impaired: No Ability to Follow Directions: Good Speech Pattern: Spontaneous Speech Memory Description: Intact Hallucinations: None Delusions: Not Present Thought Process: Goal Oriented Thought Content: positive for Goal Oriented Depressive Symptoms: Increased Anxiety and Low Self Esteem Judgement: Good Diagnostics Vital Signs (24Hr): Vital Signs - 24 hr 07/05/24 15:08 07/05/24 20:00 07/06/24 08:00 Temperature 98.1 F 97.1 F Pulse Rate 76 77 64 Respiratory Rate 16 16 Blood Pressure 113/66 112/74 Pulse Oximetry 95 96 Oxygen Delivery Method Room Air 07/06/24 09:08 07/06/24 09:09 Temperature Pulse Rate 64 Respiratory Rate Blood Pressure 112/74 112/74 Pulse Oximetry Oxygen Delivery Method BMI result Body Mass Index 27.5 Labs 06/27/24 12:05 06/27/24 12:05 Medications Medications Current Medications Acetaminophen (Acetaminophen 325 Mg Tablet) 650 mg PO Q6H PRN PRN Reason: Headache/Pain, Scale 1-10 Last Admin: 07/02/24 08:35 Dose: 650 mg Al Hydroxide/Mg Hydroxide (Magnesium Hydrox/Alum Hydrox 30 Ml Oral.Susp) 30 ml PO Q6H PRN PRN Reason: Heartburn/Nausea Atorvastatin Calcium (Atorvastatin Calcium 10 Mg Tablet) 10 mg PO DAILY [facility] Last Admin: 07/06/24 09:08 Dose: 10 mg Buprenorphine/Naloxone (Buprenorphine/Naloxone 8/2 Mg Film) 2 film SUBLINGUAL DAILY@0800 [facility] Last Admin: 07/06/24 09:07 Dose: 2 film Buprenorphine/Naloxone (Buprenorphine/Naloxone 8/2 Mg Film) 1 film SUBLINGUAL DAILY@1600 [facility] Last Admin: 07/05/24 16:14 Dose: 1 film Cefuroxime Axetil (Cefuroxime Axetil 250 Mg Tablet) 250 mg PO BID [facility] Last Admin: 07/06/24 09:14 Dose: 250 mg Chlorpromazine HCl (Chlorpromazine Hcl 25 Mg Tablet) 50 mg PO TID [facility] Last Admin: 07/06/24 09:08 Dose: 50 mg Clonazepam (Clonazepam 0.5 Mg Tablet) 0.25 mg PO BID PRN PRN Reason: anxiety/restlessness Duloxetine HCl (Duloxetine Hcl 30 Mg Capsule.Dr) 30 mg PO BID [facility] Last Admin: 07/06/24 09:09 Dose: 30 mg Furosemide (Furosemide 20 Mg Tablet) 20 mg PO DAILY [facility]; Protocol Last Admin: 07/06/24 09:08 Dose: 20 mg Hydroxyzine HCl (Hydroxyzine Hcl 25 Mg Tablet) 25 mg PO Q6H PRN PRN Reason: mild anxiety Lidocaine (Lidocaine 4 % Patch Adh..Patch) 1 patch TRANSDERMA DAILY PRN PRN Reason: Pain, Mild (Pain Scale 1-3) Last Admin: 07/02/24 08:34 Dose: 1 patch Magnesium Hydroxide (Milk Of Magnesia 30 Ml Oral.Susp) 30 ml PO DAILY PRN PRN Reason: Constipation Mirtazapine (Mirtazapine 15 Mg Tablet) 15 mg PO BEDTIME [facility] Last Admin: 07/05/24 21:54 Dose: 15 mg Nicotine (Nicotine 14 Mg Patch.Td24) 14 mg TRANSDERMA DAILY [facility] Last Admin: 07/06/24 09:10 Dose: 14 mg Nicotine Polacrilex (Nicotine Polacrilex 2 Mg Gum) 4 mg BUCCAL Q2H PRN PRN Reason: Nicotine Cravings Nicotine Polacrilex (Nicotine Polacrilex Lozenge 4 Mg Lozenge) 4 mg BUCCAL Q2H PRN PRN Reason: Nicotine Cravings Last Admin: 07/05/24 22:20 Dose: 4 mg Oxcarbazepine (Oxcarbazepine 150 Mg Tablet) 150 mg PO TID [facility] Last Admin: 07/06/24 09:09 Dose: 150 mg Prazosin HCl (Prazosin Hcl 1 Mg Capsule) 2 mg PO BEDTIME [facility]; Protocol Last Admin: 07/05/24 21:55 Dose: 2 mg Propranolol HCl (Propranolol Hcl 20 Mg Tablet) 20 mg PO TID [facility]; Protocol Last Admin: 07/06/24 09:09 Dose: 20 mg Trazodone HCl (Trazodone Hcl 50 Mg Tablet) 50 mg PO BEDTIME MRX1 PRN PRN Reason: Insomnia Allergies Allergies Allergy/AdvReac Type Severity Reaction Status Date / Time No Known Allergies Allergy Verified 06/27/24 08:58 Assessment & Plan Assessment & Plan (1) Mixed emotional features as adjustment reaction: Status: Acute Code(s): F43.29 - Adjustment disorder with other symptoms (2) Depression: Status: Acute Code(s): F32.A - Depression, unspecified (3) Opioid use disorder, moderate, in early remission, on maintenance therapy, dependence: Status: Acute Code(s): F11.21 - Opioid dependence, in remission (4) UTI (urinary tract infection): Status: Acute Code(s): N39.0 - Urinary tract infection, site not specified Plan 06/29- Improving. Trileptal 150 mg tid (anxiety) Klonopin 0.5 mg bid prn anxiety until 07/02) Pt/team to apply to [facility] 06/30: Continue current regime and plan. Tolerating Trileptal thus far 07/01/ CTP 07/02 renewed clonazepam - [facility] 07/04- continue current plan, regime. 07/05- continue current plan, regime. 07/06- Discouraaged, no placement options at this time Reason for continued inpatient stay Substantial Risk for: rapid decompensation Time Spent With Patient Time: Total time managing care of this patient today ____ minutes.
[2024-07-06] MEDS: Nicotine Polacrilex Lozenge 4 MG LOZENGE BUCCAL (13:12)
[2024-07-06] MEDS: clonazePAM 0.5 MG TABLET 0.25 MG PO ×2 (14:45→15:46)
--- NOTE | 2024-07-06 14:59 | PC.NURSE ---
pt received PRN 0.25mg of Klonopin @ 1445, however TW wasted 0.25mg a second time in error, therefore appearing to cancel the whole dose removal from the pyxis. Dose of 0.25mg was given as ordered and remained 0.25mg wasted.
[2024-07-06] MEDS: Buprenorphine/Naloxone 8/2 mg FILM 1 FILM SUBLINGUAL (15:44)
[2024-07-06 19:44] VITALS: BP 121/70; PULSE 63; TEMP 36.7; O2SAT 99
[2024-07-06] MEDS: Prazosin HCL 1 MG CAPSULE 2 MG PO (20:53)
[2024-07-06] MEDS: Mirtazapine 15 MG TABLET PO (20:54)
[2024-07-07 08:00] VITALS: BP 96/64; PULSE 75; RESP 16; TEMP 36.7; O2SAT 96
[2024-07-07] MEDS: OXcarbazepine 150 MG TABLET PO ×3 (08:59→20:44)
[2024-07-07] MEDS: Atorvastatin Calcium 10 MG TABLET PO (08:59)
[2024-07-07] MEDS: DULoxetine HCl 30 MG CAPSULE.DR PO ×2 (08:59→20:44)
[2024-07-07 09:06] VITALS: BP 104/68; PULSE 72
[2024-07-07] MEDS: chlorproMAZINE HCl 25 MG TABLET 50 MG PO ×3 (09:06→20:43)
[2024-07-07] MEDS: Propranolol HCL 20 MG TABLET PO ×3 (09:06→20:44)
[2024-07-07 09:07] VITALS: BP 104/72
[2024-07-07] MEDS: Furosemide 20 MG TABLET PO (09:07)
[2024-07-07] MEDS: Buprenorphine/Naloxone 8/2 mg FILM 2 FILM SUBLINGUAL (09:07)
[2024-07-07] MEDS: cefuroxime axetiL 250 MG TABLET PO ×2 (09:08→20:44)
[2024-07-07] MEDS: Nicotine 14 MG PATCH.TD24 TRANSDERMA (09:08)
[2024-07-07] MEDS: clonazePAM 0.5 MG TABLET PO ×2 (11:21→17:10)
[2024-07-07] MEDS: Nicotine Polacrilex Lozenge 4 MG LOZENGE BUCCAL ×3 (11:22→18:12)
[2024-07-07 15:38] VITALS: BP 122/70; PULSE 80
[2024-07-07] MEDS: Buprenorphine/Naloxone 8/2 mg FILM 1 FILM SUBLINGUAL (15:38)
--- NOTE | 2024-07-07 16:23 | P.PNPSI_ITS ---
Subjective Subjective Date of Service: 07/07/24 Reason For Visit: depression Subjective Notes: Conditional Voluntary Healthcare Proxy: No Guardianship: No Medical Problems Affecting Mental Status: No Interim History: Continues to appear sedate. Pt denies, discouraged. Discussed possibly over the weekend organizing an AA meeting (by history she is fond of leading meetings). Very worried about her lack of placement options. I am not sure what to do. Team has made several applications. She hopes for a vacancy over the weekend. Medication Compliance: Yes Side effects from medications: No Attending Groups: Intermittent Review of Systems Acute medical concerns: No Review of Systems Review of Systems Denies Mental Status Exam Mental Status Exam Patient Appearance: Appropriate Patient Orientation: Person, Place, Time and Situation Level of Consciousness: Alert Patient Behavior: Talkative and Good Eye Contact Mood Description: Depressed Affect Description: Flat Patient Cognition Impaired: No Ability to Follow Directions: Good Speech Pattern: Spontaneous Speech Memory Description: Intact Hallucinations: None Delusions: Not Present Thought Process: Goal Oriented Thought Content: positive for Goal Oriented Depressive Symptoms: Increased Anxiety and Low Self Esteem Judgement: Good Diagnostics Vital Signs (24Hr): Vital Signs - 24 hr 07/06/24 19:44 07/07/24 08:00 07/07/24 09:06 Temperature 98.0 F 98.1 F Pulse Rate 63 75 72 Respiratory Rate 16 Blood Pressure 121/70 96/64 104/68 Pulse Oximetry 99 96 Oxygen Delivery Method Room Air 07/07/24 09:07 07/07/24 15:38 Temperature Pulse Rate 80 Respiratory Rate Blood Pressure 104/72 122/70 Pulse Oximetry Oxygen Delivery Method BMI result Body Mass Index 27.5 Labs 06/27/24 12:05 06/27/24 12:05 Medications Medications Current Medications Acetaminophen (Acetaminophen 325 Mg Tablet) 650 mg PO Q6H PRN PRN Reason: Headache/Pain, Scale 1-10 Last Admin: 07/02/24 08:35 Dose: 650 mg Al Hydroxide/Mg Hydroxide (Magnesium Hydrox/Alum Hydrox 30 Ml Oral.Susp) 30 ml PO Q6H PRN PRN Reason: Heartburn/Nausea Atorvastatin Calcium (Atorvastatin Calcium 10 Mg Tablet) 10 mg PO DAILY [facility] Last Admin: 07/07/24 08:59 Dose: 10 mg Buprenorphine/Naloxone (Buprenorphine/Naloxone 8/2 Mg Film) 2 film SUBLINGUAL DAILY@0800 [facility] Last Admin: 07/07/24 09:07 Dose: 2 film Buprenorphine/Naloxone (Buprenorphine/Naloxone 8/2 Mg Film) 1 film SUBLINGUAL DAILY@1600 [facility] Last Admin: 07/07/24 15:38 Dose: 1 film Cefuroxime Axetil (Cefuroxime Axetil 250 Mg Tablet) 250 mg PO BID [facility] Last Admin: 07/07/24 09:08 Dose: 250 mg Chlorpromazine HCl (Chlorpromazine Hcl 25 Mg Tablet) 50 mg PO TID [facility] Last Admin: 07/07/24 15:38 Dose: 50 mg Clonazepam (Clonazepam 0.5 Mg Tablet) 0.5 mg PO BID PRN PRN Reason: anxiety/restlessness Last Admin: 07/07/24 11:21 Dose: 0.5 mg Duloxetine HCl (Duloxetine Hcl 30 Mg Capsule.Dr) 30 mg PO BID [facility] Last Admin: 07/07/24 08:59 Dose: 30 mg Furosemide (Furosemide 20 Mg Tablet) 20 mg PO DAILY [facility]; Protocol Last Admin: 07/07/24 09:07 Dose: 20 mg Hydroxyzine HCl (Hydroxyzine Hcl 25 Mg Tablet) 25 mg PO Q6H PRN PRN Reason: mild anxiety Lidocaine (Lidocaine 4 % Patch Adh..Patch) 1 patch TRANSDERMA DAILY PRN PRN Reason: Pain, Mild (Pain Scale 1-3) Last Admin: 07/02/24 08:34 Dose: 1 patch Magnesium Hydroxide (Milk Of Magnesia 30 Ml Oral.Susp) 30 ml PO DAILY PRN PRN Reason: Constipation Mirtazapine (Mirtazapine 15 Mg Tablet) 15 mg PO BEDTIME [facility] Last Admin: 07/06/24 20:54 Dose: 15 mg Nicotine (Nicotine 14 Mg Patch.Td24) 14 mg TRANSDERMA DAILY [facility] Last Admin: 07/07/24 09:08 Dose: 14 mg Nicotine Polacrilex (Nicotine Polacrilex 2 Mg Gum) 4 mg BUCCAL Q2H PRN PRN Reason: Nicotine Cravings Nicotine Polacrilex (Nicotine Polacrilex Lozenge 4 Mg Lozenge) 4 mg BUCCAL Q2H PRN PRN Reason: Nicotine Cravings Last Admin: 07/07/24 14:14 Dose: 4 mg Oxcarbazepine (Oxcarbazepine 150 Mg Tablet) 150 mg PO TID [facility] Last Admin: 07/07/24 15:38 Dose: 150 mg Prazosin HCl (Prazosin Hcl 1 Mg Capsule) 2 mg PO BEDTIME [facility]; Protocol Last Admin: 07/06/24 20:53 Dose: 2 mg Propranolol HCl (Propranolol Hcl 20 Mg Tablet) 20 mg PO TID [facility]; Protocol Last Admin: 07/07/24 15:38 Dose: 20 mg Trazodone HCl (Trazodone Hcl 50 Mg Tablet) 50 mg PO BEDTIME MRX1 PRN PRN Reason: Insomnia Allergies Allergies Allergy/AdvReac Type Severity Reaction Status Date / Time No Known Allergies Allergy Verified 06/27/24 08:58 Assessment & Plan Assessment & Plan (1) Mixed emotional features as adjustment reaction: Status: Acute Code(s): F43.29 - Adjustment disorder with other symptoms (2) Depression: Status: Acute Code(s): F32.A - Depression, unspecified (3) Opioid use disorder, moderate, in early remission, on maintenance therapy, dependence: Status: Acute Code(s): F11.21 - Opioid dependence, in remission (4) UTI (urinary tract infection): Status: Acute Code(s): N39.0 - Urinary tract infection, site not specified Plan 06/29- Improving. Trileptal 150 mg tid (anxiety) Klonopin 0.5 mg bid prn anxiety until 07/02) Pt/team to apply to [facility] 06/30: Continue current regime and plan. Tolerating Trileptal thus far 07/01/ [facility] 07/02 [facility] - [facility] 07/04- continue current plan, regime. 07/05- continue current plan, regime. 07/07-Discussed options for med reduction, klonopin, chlorpromazine, trileptal. Pt asks that we not make changes. She reports current presentation is her discouragement at lack of acceptance for placement. Reason for continued inpatient stay Substantial Risk for: rapid decompensation Time Spent With Patient Time: Total time managing care of this patient today ____ minutes.
[2024-07-07 19:52] VITALS: BP 108/57; PULSE 74; TEMP 36.4; O2SAT 97
[2024-07-07] MEDS: Mirtazapine 15 MG TABLET PO (20:44)
[2024-07-07] MEDS: Prazosin HCL 1 MG CAPSULE 2 MG PO (20:44)
[2024-07-08 08:00] VITALS: BP 99/60; PULSE 83; RESP 16; TEMP 36.8; O2SAT 94
[2024-07-08] MEDS: OXcarbazepine 150 MG TABLET PO ×3 (08:09→20:22)
[2024-07-08] MEDS: DULoxetine HCl 30 MG CAPSULE.DR PO ×2 (08:09→20:22)
[2024-07-08] MEDS: cefuroxime axetiL 250 MG TABLET PO ×2 (08:09→20:21)
[2024-07-08] MEDS: Atorvastatin Calcium 10 MG TABLET PO (08:09)
[2024-07-08] MEDS: Furosemide 20 MG TABLET PO (08:09)
[2024-07-08] MEDS: Propranolol HCL 20 MG TABLET PO ×2 (08:09→18:24)
[2024-07-08] MEDS: chlorproMAZINE HCl 25 MG TABLET 50 MG PO ×3 (08:09→20:22)
[2024-07-08] MEDS: Nicotine 14 MG PATCH.TD24 TRANSDERMA (08:14)
[2024-07-08] MEDS: Buprenorphine/Naloxone 8/2 mg FILM 2 FILM SUBLINGUAL (08:42)
[2024-07-08] MEDS: clonazePAM 0.5 MG TABLET PO ×2 (08:42→15:36)
--- NOTE | 2024-07-08 09:26 | P.PNPSI_ITS ---
Subjective Subjective Date of Service: 07/08/24 Reason For Visit: depression Interim History: met with patient; discussed with team; reviewed chart Patient reports that overall she remains doing better, anxiety lower, depression lower; denies any SI or HI. Patient shared that she was grateful that she had a good talk with program yesterday who said they would be scheduling a screening interview. 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 Patient also anticipating being able to lead an AA group today on the unit. -had some odd dreams, accidentally left nicotine patch on Mental Status Exam Mental Status Exam Patient Appearance: Appropriate Patient Orientation: Person, Place, Time and Situation Level of Consciousness: Alert Patient Behavior: Appropriate, Talkative and Good Eye Contact Mood Description: Calm and Anxious (A little anxious about aftercare) Affect Description: Appropriate Patient Cognition Impaired: No Ability to Follow Directions: Good Speech Pattern: Spontaneous Speech Memory Description: Intact Hallucinations: None Delusions: Not Present Thought Process: Goal Oriented Thought Content: positive for Goal Oriented, positive for Suicidal Ideation (Denies) and positive for Homicidal Ideation (Denies) Depressive Symptoms: Low Self Esteem (Chronic) Judgement: Good Diagnostics Vital Signs (24Hr): Vital Signs - 24 hr 07/07/24 15:38 07/07/24 19:52 07/08/24 08:00 Temperature 97.6 F 98.2 F Pulse Rate 80 74 83 Respiratory Rate 16 Blood Pressure 122/70 108/57 L 99/60 Pulse Oximetry 97 94 Oxygen Delivery Method Room Air Room Air BMI result Body Mass Index 27.5 Labs 06/27/24 12:05 06/27/24 12:05 Medications Medications Current Medications Acetaminophen (Acetaminophen 325 Mg Tablet) 650 mg PO Q6H PRN PRN Reason: Headache/Pain, Scale 1-10 Last Admin: 07/02/24 08:35 Dose: 650 mg Al Hydroxide/Mg Hydroxide (Magnesium Hydrox/Alum Hydrox 30 Ml Oral.Susp) 30 ml PO Q6H PRN PRN Reason: Heartburn/Nausea Atorvastatin Calcium (Atorvastatin Calcium 10 Mg Tablet) 10 mg PO DAILY [facility] Last Admin: 07/08/24 08:09 Dose: 10 mg Buprenorphine/Naloxone (Buprenorphine/Naloxone 8/2 Mg Film) 2 film SUBLINGUAL DAILY@0800 [facility] Last Admin: 07/08/24 08:42 Dose: 2 film Buprenorphine/Naloxone (Buprenorphine/Naloxone 8/2 Mg Film) 1 film SUBLINGUAL DAILY@1600 [facility] Last Admin: 07/07/24 15:38 Dose: 1 film Cefuroxime Axetil (Cefuroxime Axetil 250 Mg Tablet) 250 mg PO BID [facility] Stop: 07/09/24 10:00 Last Admin: 07/08/24 08:09 Dose: 250 mg Chlorpromazine HCl (Chlorpromazine Hcl 25 Mg Tablet) 50 mg PO TID [facility] Last Admin: 07/08/24 08:09 Dose: 50 mg Clonazepam (Clonazepam 0.5 Mg Tablet) 0.5 mg PO BID PRN PRN Reason: anxiety/restlessness Last Admin: 07/08/24 08:42 Dose: 0.5 mg Duloxetine HCl (Duloxetine Hcl 30 Mg Capsule.Dr) 30 mg PO BID [facility] Last Admin: 07/08/24 08:09 Dose: 30 mg Furosemide (Furosemide 20 Mg Tablet) 20 mg PO DAILY [facility]; Protocol Last Admin: 07/08/24 08:09 Dose: 20 mg Hydroxyzine HCl (Hydroxyzine Hcl 25 Mg Tablet) 25 mg PO Q6H PRN PRN Reason: mild anxiety Lidocaine (Lidocaine 4 % Patch Adh..Patch) 1 patch TRANSDERMA DAILY PRN PRN Reason: Pain, Mild (Pain Scale 1-3) Last Admin: 07/02/24 08:34 Dose: 1 patch Magnesium Hydroxide (Milk Of Magnesia 30 Ml Oral.Susp) 30 ml PO DAILY PRN PRN Reason: Constipation Mirtazapine (Mirtazapine 15 Mg Tablet) 15 mg PO BEDTIME [facility] Last Admin: 07/07/24 20:44 Dose: 15 mg Nicotine (Nicotine 14 Mg Patch.Td24) 14 mg TRANSDERMA DAILY [facility] Last Admin: 07/08/24 08:14 Dose: 14 mg Nicotine Polacrilex (Nicotine Polacrilex 2 Mg Gum) 4 mg BUCCAL Q2H PRN PRN Reason: Nicotine Cravings Nicotine Polacrilex (Nicotine Polacrilex Lozenge 4 Mg Lozenge) 4 mg BUCCAL Q2H PRN PRN Reason: Nicotine Cravings Last Admin: 07/07/24 18:12 Dose: 4 mg Oxcarbazepine (Oxcarbazepine 150 Mg Tablet) 150 mg PO TID [facility] Last Admin: 07/08/24 08:09 Dose: 150 mg Prazosin HCl (Prazosin Hcl 1 Mg Capsule) 2 mg PO BEDTIME [facility]; Protocol Last Admin: 07/07/24 20:44 Dose: 2 mg Propranolol HCl (Propranolol Hcl 20 Mg Tablet) 20 mg PO TID [facility]; Protocol Last Admin: 07/08/24 08:09 Dose: 20 mg Trazodone HCl (Trazodone Hcl 50 Mg Tablet) 50 mg PO BEDTIME MRX1 PRN PRN Reason: Insomnia Allergies Allergies Allergy/AdvReac Type Severity Reaction Status Date / Time No Known Allergies Allergy Verified 06/27/24 08:58 Assessment & Plan Assessment & Plan (1) Mixed emotional features as adjustment reaction: Status: Acute Code(s): F43.29 - Adjustment disorder with other symptoms (2) Depression: Status: Acute Code(s): F32.A - Depression, unspecified (3) Opioid use disorder, moderate, in early remission, on maintenance therapy, dependence: Status: Acute Code(s): F11.21 - Opioid dependence, in remission (4) UTI (urinary tract infection): Status: Acute Code(s): N39.0 - Urinary tract infection, site not specified Plan 06/29- Improving. Trileptal 150 mg tid (anxiety) Klonopin 0.5 mg bid prn anxiety until 07/02) Pt/team to apply to [facility] 06/30: Continue current regime and plan. Tolerating Trileptal thus far 07/01/ [facility] continue current plan, regime. 07/05- continue current plan, regime. 07/07-Discussed options for med reduction, klonopin, chlorpromazine, trileptal. Pt asks that we not make changes. She reports current presentation is her discouragement at lack of acceptance for placement. 07/08 Patient reports that overall she remains doing better, anxiety lower, depression lower; denies any SI or HI. Patient shared that she was grateful that she had a good talk with program yesterday who said they would be scheduling a screening interview. 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 Patient also anticipating being able to lead an AA group today on the unit. -had some odd dreams, accidentally left nicotine patch on Patient educated on: diagnosis, medication risk/benefits and substance abuse Informed Consent: understands Reason for continued inpatient stay Substantial Risk for: stable for discharge Time Spent With Patient Time: Total time managing care of this patient today ____ minutes.
[2024-07-08] MEDS: Nicotine Polacrilex Lozenge 4 MG LOZENGE BUCCAL ×2 (11:04→18:24)
[2024-07-08 15:00] VITALS: BP 93/56
[2024-07-08] MEDS: Buprenorphine/Naloxone 8/2 mg FILM 1 FILM SUBLINGUAL (15:36)
[2024-07-08 18:24] VITALS: BP 144/71
[2024-07-08 19:44] VITALS: BP 112/58; PULSE 103; TEMP 36.5; O2SAT 97
[2024-07-08] MEDS: Prazosin HCL 1 MG CAPSULE 2 MG PO (20:21)
[2024-07-08] MEDS: Mirtazapine 15 MG TABLET PO (20:21)
[2024-07-09 08:00] VITALS: BP 119/66; PULSE 93; TEMP 36.3; O2SAT 94
[2024-07-09] MEDS: Furosemide 20 MG TABLET PO (08:04)
[2024-07-09] MEDS: Nicotine 14 MG PATCH.TD24 TRANSDERMA (08:04)
[2024-07-09] MEDS: DULoxetine HCl 30 MG CAPSULE.DR PO ×2 (08:04→21:20)
[2024-07-09] MEDS: Atorvastatin Calcium 10 MG TABLET PO (08:04)
[2024-07-09] MEDS: OXcarbazepine 150 MG TABLET PO ×3 (08:04→21:24)
[2024-07-09] MEDS: chlorproMAZINE HCl 25 MG TABLET 50 MG PO ×3 (08:04→21:20)
[2024-07-09] MEDS: Nicotine Polacrilex Lozenge 4 MG LOZENGE BUCCAL ×3 (08:04→21:58)
[2024-07-09] MEDS: Propranolol HCL 20 MG TABLET PO ×2 (08:04→21:20)
[2024-07-09] MEDS: Buprenorphine/Naloxone 8/2 mg FILM 2 FILM SUBLINGUAL (08:38)
[2024-07-09] MEDS: clonazePAM 0.5 MG TABLET PO ×2 (08:38→15:47)
[2024-07-09] MEDS: cefuroxime axetiL 250 MG TABLET PO (08:38)
--- NOTE | 2024-07-09 08:44 | HO.PSYCHPN ---
Subjective Subjective Date of Service: 07/09/24 Reason For Visit: depression Interim History: met with patient; discussed with team remains doing better; still anxious but coping; let AA group which went well Mental Status Exam Mental Status Exam Patient Appearance: Appropriate Patient Orientation: Person, Place, Time and Situation Level of Consciousness: Alert Patient Behavior: Appropriate, Talkative and Good Eye Contact Mood Description: Calm and Anxious (A little anxious about aftercare) Affect Description: Appropriate Patient Cognition Impaired: No Ability to Follow Directions: Good Speech Pattern: Spontaneous Speech Memory Description: Intact Hallucinations: None Delusions: Not Present Thought Process: Goal Oriented Thought Content: positive for Goal Oriented, positive for Suicidal Ideation (Denies) and positive for Homicidal Ideation (Denies) Depressive Symptoms: Low Self Esteem (Chronic) Judgement: Good Diagnostics Vital Signs (24Hr): Vital Signs - 24 hr 07/08/24 15:00 07/08/24 18:24 07/08/24 19:44 Temperature 97.7 F Pulse Rate 103 H Blood Pressure 93/56 L 144/71 H 112/58 L Pulse Oximetry 97 Oxygen Delivery Method Room Air 07/09/24 08:00 Temperature 97.4 F Pulse Rate 93 Blood Pressure 119/66 Pulse Oximetry 94 Oxygen Delivery Method Room Air BMI result Body Mass Index 27.5 Labs 06/27/24 12:05 06/27/24 12:05 Medications Medications Current Medications Acetaminophen (Acetaminophen 325 Mg Tablet) 650 mg PO Q6H PRN PRN Reason: Headache/Pain, Scale 1-10 Last Admin: 07/02/24 08:35 Dose: 650 mg Al Hydroxide/Mg Hydroxide (Magnesium Hydrox/Alum Hydrox 30 Ml Oral.Susp) 30 ml PO Q6H PRN PRN Reason: Heartburn/Nausea Atorvastatin Calcium (Atorvastatin Calcium 10 Mg Tablet) 10 mg PO DAILY [facility] Last Admin: 07/09/24 08:04 Dose: 10 mg Buprenorphine/Naloxone (Buprenorphine/Naloxone 8/2 Mg Film) 2 film SUBLINGUAL DAILY@0800 [facility] Last Admin: 07/09/24 08:38 Dose: 2 film Buprenorphine/Naloxone (Buprenorphine/Naloxone 8/2 Mg Film) 1 film SUBLINGUAL DAILY@1600 [facility] Last Admin: 07/08/24 15:36 Dose: 1 film Cefuroxime Axetil (Cefuroxime Axetil 250 Mg Tablet) 250 mg PO BID [facility] Stop: 07/09/24 10:00 Last Admin: 07/09/24 08:38 Dose: 250 mg Chlorpromazine HCl (Chlorpromazine Hcl 25 Mg Tablet) 50 mg PO TID [facility] Last Admin: 07/09/24 08:04 Dose: 50 mg Clonazepam (Clonazepam 0.5 Mg Tablet) 0.5 mg PO BID PRN PRN Reason: anxiety/restlessness Last Admin: 07/09/24 08:38 Dose: 0.5 mg Duloxetine HCl (Duloxetine Hcl 30 Mg Capsule.Dr) 30 mg PO BID [facility] Last Admin: 07/09/24 08:04 Dose: 30 mg Furosemide (Furosemide 20 Mg Tablet) 20 mg PO DAILY [facility]; Protocol Last Admin: 07/09/24 08:04 Dose: 20 mg Hydroxyzine HCl (Hydroxyzine Hcl 25 Mg Tablet) 25 mg PO Q6H PRN PRN Reason: mild anxiety Lidocaine (Lidocaine 4 % Patch Adh..Patch) 1 patch TRANSDERMA DAILY PRN PRN Reason: Pain, Mild (Pain Scale 1-3) Last Admin: 07/02/24 08:34 Dose: 1 patch Magnesium Hydroxide (Milk Of Magnesia 30 Ml Oral.Susp) 30 ml PO DAILY PRN PRN Reason: Constipation Mirtazapine (Mirtazapine 15 Mg Tablet) 15 mg PO BEDTIME [facility] Last Admin: 07/08/24 20:21 Dose: 15 mg Nicotine (Nicotine 14 Mg Patch.Td24) 14 mg TRANSDERMA DAILY [facility] Last Admin: 07/09/24 08:04 Dose: 14 mg Nicotine Polacrilex (Nicotine Polacrilex 2 Mg Gum) 4 mg BUCCAL Q2H PRN PRN Reason: Nicotine Cravings Nicotine Polacrilex (Nicotine Polacrilex Lozenge 4 Mg Lozenge) 4 mg BUCCAL Q2H PRN PRN Reason: Nicotine Cravings Last Admin: 07/09/24 08:04 Dose: 4 mg Oxcarbazepine (Oxcarbazepine 150 Mg Tablet) 150 mg PO TID [facility] Last Admin: 07/09/24 08:04 Dose: 150 mg Prazosin HCl (Prazosin Hcl 1 Mg Capsule) 2 mg PO BEDTIME [facility]; Protocol Last Admin: 07/08/24 20:21 Dose: 2 mg Propranolol HCl (Propranolol Hcl 20 Mg Tablet) 20 mg PO TID [facility]; Protocol Last Admin: 07/09/24 08:04 Dose: 20 mg Trazodone HCl (Trazodone Hcl 50 Mg Tablet) 50 mg PO BEDTIME MRX1 PRN PRN Reason: Insomnia Allergies Allergies Allergy/AdvReac Type Severity Reaction Status Date / Time No Known Allergies Allergy Verified 06/27/24 08:58 Assessment & Plan Assessment & Plan (1) Mixed emotional features as adjustment reaction: Status: Acute Code(s): F43.29 - Adjustment disorder with other symptoms (2) Depression: Status: Acute Code(s): F32.A - Depression, unspecified (3) Opioid use disorder, moderate, in early remission, on maintenance therapy, dependence: Status: Acute Code(s): F11.21 - Opioid dependence, in remission (4) UTI (urinary tract infection): Status: Acute Code(s): N39.0 - Urinary tract infection, site not specified Plan 06/29- Improving. Trileptal 150 mg tid (anxiety) Klonopin 0.5 mg bid prn anxiety until 07/02) Pt/team to apply to [facility] 06/30: Continue current regime and plan. Tolerating Trileptal thus far 07/01/ [facility] continue current plan, regime. 07/05- continue current plan, regime. 07/07-Discussed options for med reduction, klonopin, chlorpromazine, trileptal. Pt asks that we not make changes. She reports current presentation is her discouragement at lack of acceptance for placement. 07/08 Patient reports that overall she remains doing better, anxiety lower, depression lower; denies any SI or HI. Patient shared that she was grateful that she had a good talk with program yesterday who said they would be scheduling a screening interview. Nutritional Assistant and patient discussed medications and she feels they are good the way they are and wants them to remain. Patient also anticipating being able to lead an AA group today on the unit. -had some odd dreams, accidentally left nicotine patch on 07/09 continue treatment plan Patient educated on: diagnosis, medication risk/benefits and therapeutic strategies Informed Consent: understands Reason for continued inpatient stay Substantial Risk for: stable for discharge and rapid decompensation Time Spent With Patient Time: Total time managing care of this patient today ____ minutes.
[2024-07-09 15:40] VITALS: BP 119/56
[2024-07-09] MEDS: Buprenorphine/Naloxone 8/2 mg FILM 1 FILM SUBLINGUAL (15:48)
[2024-07-09 19:39] VITALS: BP 103/60; PULSE 80; RESP 15; TEMP 36.6; O2SAT 94
[2024-07-09] MEDS: Mirtazapine 15 MG TABLET PO (21:20)
[2024-07-09] MEDS: Prazosin HCL 1 MG CAPSULE 2 MG PO (21:23)
[2024-07-10 07:53] VITALS: BP 101/55; PULSE 81; TEMP 36.6; O2SAT 96
[2024-07-10] MEDS: Nicotine 14 MG PATCH.TD24 TRANSDERMA (09:08)
[2024-07-10] MEDS: chlorproMAZINE HCl 25 MG TABLET 50 MG PO ×3 (09:09→21:33)
[2024-07-10] MEDS: Atorvastatin Calcium 10 MG TABLET PO (09:09)
[2024-07-10] MEDS: OXcarbazepine 150 MG TABLET PO ×3 (09:09→21:31)
[2024-07-10] MEDS: DULoxetine HCl 30 MG CAPSULE.DR PO ×2 (09:09→21:32)
[2024-07-10] MEDS: Furosemide 20 MG TABLET PO (09:10)
[2024-07-10] MEDS: Buprenorphine/Naloxone 8/2 mg FILM 2 FILM SUBLINGUAL (09:10)
[2024-07-10] MEDS: clonazePAM 0.5 MG TABLET PO ×2 (09:14→14:53)
--- NOTE | 2024-07-10 10:09 | HO.PSYCHPN ---
Subjective Subjective Date of Service: 07/10/24 Reason For Visit: depression Subjective Notes: Conditional Voluntary Healthcare Proxy: No Guardianship: No Medical Problems Affecting Mental Status: No Interim History: Continues to apply to programs for ongoing treatment. Over the weekend led an AA meeting on the unit which she found helpful. No med changes, await options for ongoing treatment. Medication Compliance: Yes Side effects from medications: No Attending Groups: Yes Review of Systems Acute medical concerns: No Review of Systems Review of Systems Denies Mental Status Exam Mental Status Exam Patient Appearance: Appropriate Patient Orientation: Person, Place, Time and Situation Level of Consciousness: Alert Patient Behavior: Talkative and Good Eye Contact Mood Description: Sad Affect Description: Flat Patient Cognition Impaired: No Ability to Follow Directions: Good Speech Pattern: Spontaneous Speech Memory Description: Intact Hallucinations: None Delusions: Not Present Thought Process: Intact and Goal Oriented Thought Content: positive for Intact and positive for Goal Oriented Depressive Symptoms: Increased Anxiety Judgement: Good Diagnostics Vital Signs (24Hr): Vital Signs - 24 hr 07/09/24 15:40 07/09/24 19:39 07/10/24 07:53 Temperature 97.8 F 98 F Pulse Rate 80 81 Respiratory Rate 15 Blood Pressure 119/56 L 103/60 101/55 L Pulse Oximetry 94 96 Oxygen Delivery Method Room Air BMI result Body Mass Index 27.5 Labs 06/27/24 12:05 06/27/24 12:05 Medications Medications Current Medications Acetaminophen (Acetaminophen 325 Mg Tablet) 650 mg PO Q6H PRN PRN Reason: Headache/Pain, Scale 1-10 Last Admin: 07/02/24 08:35 Dose: 650 mg Al Hydroxide/Mg Hydroxide (Magnesium Hydrox/Alum Hydrox 30 Ml Oral.Susp) 30 ml PO Q6H PRN PRN Reason: Heartburn/Nausea Atorvastatin Calcium (Atorvastatin Calcium 10 Mg Tablet) 10 mg PO DAILY [facility] Last Admin: 07/10/24 09:09 Dose: 10 mg Buprenorphine/Naloxone (Buprenorphine/Naloxone 8/2 Mg Film) 2 film SUBLINGUAL DAILY@0800 [facility] Last Admin: 07/10/24 09:10 Dose: 2 film Buprenorphine/Naloxone (Buprenorphine/Naloxone 8/2 Mg Film) 1 film SUBLINGUAL DAILY@1600 [facility] Last Admin: 07/09/24 15:48 Dose: 1 film Chlorpromazine HCl (Chlorpromazine Hcl 25 Mg Tablet) 50 mg PO TID [facility] Last Admin: 07/10/24 09:09 Dose: 50 mg Clonazepam (Clonazepam 0.5 Mg Tablet) 0.5 mg PO BID PRN PRN Reason: anxiety/restlessness Last Admin: 07/10/24 09:14 Dose: 0.5 mg Duloxetine HCl (Duloxetine Hcl 30 Mg Capsule.Dr) 30 mg PO BID [facility] Last Admin: 07/10/24 09:09 Dose: 30 mg Furosemide (Furosemide 20 Mg Tablet) 20 mg PO DAILY [facility]; Protocol Last Admin: 07/10/24 09:10 Dose: 20 mg Hydroxyzine HCl (Hydroxyzine Hcl 25 Mg Tablet) 25 mg PO Q6H PRN PRN Reason: mild anxiety Lidocaine (Lidocaine 4 % Patch Adh..Patch) 1 patch TRANSDERMA DAILY PRN PRN Reason: Pain, Mild (Pain Scale 1-3) Last Admin: 07/02/24 08:34 Dose: 1 patch Magnesium Hydroxide (Milk Of Magnesia 30 Ml Oral.Susp) 30 ml PO DAILY PRN PRN Reason: Constipation Mirtazapine (Mirtazapine 15 Mg Tablet) 15 mg PO BEDTIME [facility] Last Admin: 07/09/24 21:20 Dose: 15 mg Nicotine (Nicotine 14 Mg Patch.Td24) 14 mg TRANSDERMA DAILY [facility] Last Admin: 07/10/24 09:08 Dose: 14 mg Nicotine Polacrilex (Nicotine Polacrilex 2 Mg Gum) 4 mg BUCCAL Q2H PRN PRN Reason: Nicotine Cravings Nicotine Polacrilex (Nicotine Polacrilex Lozenge 4 Mg Lozenge) 4 mg BUCCAL Q2H PRN PRN Reason: Nicotine Cravings Last Admin: 07/09/24 21:58 Dose: 4 mg Oxcarbazepine (Oxcarbazepine 150 Mg Tablet) 150 mg PO TID [facility] Last Admin: 07/10/24 09:09 Dose: 150 mg Prazosin HCl (Prazosin Hcl 1 Mg Capsule) 2 mg PO BEDTIME [facility]; Protocol Last Admin: 07/09/24 21:23 Dose: 2 mg Propranolol HCl (Propranolol Hcl 20 Mg Tablet) 20 mg PO TID [facility]; Protocol Last Admin: 07/10/24 09:17 Dose: Not Given Trazodone HCl (Trazodone Hcl 50 Mg Tablet) 50 mg PO BEDTIME MRX1 PRN PRN Reason: Insomnia Allergies Allergies Allergy/AdvReac Type Severity Reaction Status Date / Time No Known Allergies Allergy Verified 06/27/24 08:58 Assessment & Plan Assessment & Plan (1) Mixed emotional features as adjustment reaction: Status: Acute Code(s): F43.29 - Adjustment disorder with other symptoms (2) Depression: Status: Acute Code(s): F32.A - Depression, unspecified (3) Opioid use disorder, moderate, in early remission, on maintenance therapy, dependence: Status: Acute Code(s): F11.21 - Opioid dependence, in remission (4) UTI (urinary tract infection): Status: Acute Code(s): N39.0 - Urinary tract infection, site not specified Plan 06/29- Improving. Trileptal 150 mg tid (anxiety) Klonopin 0.5 mg bid prn anxiety until 07/02) Pt/team to apply to [facility] 06/30: Continue current regime and plan. Tolerating Trileptal thus far 07/01/ [facility] 07/02 renewed [facility]epam - [facility] 07/04- continue current plan, regime. 07/05- continue current plan, regime. 07/07-Discussed options for med reduction, klonopin, chlorpromazine, trileptal. Pt asks that we not make changes. She reports current presentation is her discouragement at lack of acceptance for placement. 07/08 Patient reports that overall she remains doing better, anxiety lower, depression lower; denies any SI or HI. Patient shared that she was grateful that she had a good talk with program yesterday who said they would be scheduling a screening interview. Roads Supervisor and patient discussed medications and she feels they are good the way they are and wants them to remain. Patient also anticipating being able to lead an AA group today on the unit. -had some odd dreams, accidentally left nicotine patch on 07/09 continue treatment plan 07/10 continue regime and plan Reason for continued inpatient stay Substantial Risk for: rapid decompensation Time Spent With Patient Time: Total time managing care of this patient today ____ minutes.
[2024-07-10 11:19] VITALS: BP 156/77
[2024-07-10] MEDS: Propranolol HCL 20 MG TABLET PO ×3 (11:19→21:32)
[2024-07-10] MEDS: Nicotine Polacrilex Lozenge 4 MG LOZENGE BUCCAL ×2 (11:21→21:06)
[2024-07-10 14:55] VITALS: BP 111/67; PULSE 78
[2024-07-10] MEDS: Buprenorphine/Naloxone 8/2 mg FILM 1 FILM SUBLINGUAL (15:37)
[2024-07-10 20:00] VITALS: BP 115/65; PULSE 68; TEMP 36.4; O2SAT 98
[2024-07-10 21:32] VITALS: BP 116/55; PULSE 68
[2024-07-10] MEDS: Mirtazapine 15 MG TABLET PO (21:33)
[2024-07-10 21:34] VITALS: BP 115/65
[2024-07-10] MEDS: Prazosin HCL 1 MG CAPSULE 2 MG PO (21:34)
[2024-07-11 08:00] VITALS: BP 112/65; PULSE 70; RESP 16; TEMP 36.8; O2SAT 97
[2024-07-11] MEDS: OXcarbazepine 150 MG TABLET PO ×3 (09:19→20:22)
[2024-07-11] MEDS: Nicotine 14 MG PATCH.TD24 TRANSDERMA (09:19)
[2024-07-11] MEDS: chlorproMAZINE HCl 25 MG TABLET 50 MG PO ×3 (09:19→20:21)
[2024-07-11 09:20] VITALS: BP 112/65
[2024-07-11] MEDS: clonazePAM 0.5 MG TABLET PO ×2 (09:20→15:51)
[2024-07-11] MEDS: Buprenorphine/Naloxone 8/2 mg FILM 2 FILM SUBLINGUAL (09:20)
[2024-07-11] MEDS: DULoxetine HCl 30 MG CAPSULE.DR PO ×2 (09:20→20:22)
[2024-07-11] MEDS: Furosemide 20 MG TABLET PO (09:20)
[2024-07-11 09:21] VITALS: BP 112/65; PULSE 70
[2024-07-11] MEDS: Atorvastatin Calcium 10 MG TABLET PO (09:21)
[2024-07-11] MEDS: Nicotine Polacrilex Lozenge 4 MG LOZENGE BUCCAL ×3 (09:21→20:27)
[2024-07-11] MEDS: Propranolol HCL 20 MG TABLET PO ×3 (09:21→20:21)
--- NOTE | 2024-07-11 12:29 | P.PNPSI_ITS ---
Subjective Subjective Date of Service: 07/11/24 Reason For Visit: depression Subjective Notes: Conditional Voluntary Healthcare Proxy: No Guardianship: No Medical Problems Affecting Mental Status: No Interim History: Pt accepted and will transfer to respite on 07/12. Discussed her admission, precipitants to admission and her impressions of programs rules on accepting people who have had a term of sobriety and their varied opinions and resulting decisions. Reviewed her program rejections and hopes that she can work toward helping to make change in the rehabs she participates in. Medication Compliance: Yes Side effects from medications: No Attending Groups: Yes Review of Systems Acute medical concerns: No Review of Systems Review of Systems Denies Mental Status Exam Mental Status Exam Patient Appearance: Appropriate Patient Orientation: Person, Place, Time and Situation Level of Consciousness: Alert Patient Behavior: Talkative and Good Eye Contact Mood Description: Sad Affect Description: Flat Patient Cognition Impaired: No Ability to Follow Directions: Good Speech Pattern: Spontaneous Speech Memory Description: Intact Hallucinations: None Delusions: Not Present Thought Process: Intact and Goal Oriented Thought Content: positive for Intact and positive for Goal Oriented Depressive Symptoms: Increased Anxiety Judgement: Good Diagnostics Vital Signs (24Hr): Vital Signs - 24 hr 07/10/24 14:55 07/10/24 20:00 07/10/24 21:32 Temperature 97.6 F Pulse Rate 78 68 68 Respiratory Rate Blood Pressure 111/67 115/65 116/55 L Pulse Oximetry 98 Oxygen Delivery Method Room Air 07/10/24 21:34 07/11/24 08:00 07/11/24 09:20 Temperature 98.2 F Pulse Rate 70 Respiratory Rate 16 Blood Pressure 115/65 112/65 112/65 Pulse Oximetry 97 Oxygen Delivery Method 07/11/24 09:21 Temperature Pulse Rate 70 Respiratory Rate Blood Pressure 112/65 Pulse Oximetry Oxygen Delivery Method BMI result Body Mass Index 27.5 Labs 06/27/24 12:05 06/27/24 12:05 Medications Medications Current Medications Acetaminophen (Acetaminophen 325 Mg Tablet) 650 mg PO Q6H PRN PRN Reason: Headache/Pain, Scale 1-10 Last Admin: 07/02/24 08:35 Dose: 650 mg Al Hydroxide/Mg Hydroxide (Magnesium Hydrox/Alum Hydrox 30 Ml Oral.Susp) 30 ml PO Q6H PRN PRN Reason: Heartburn/Nausea Atorvastatin Calcium (Atorvastatin Calcium 10 Mg Tablet) 10 mg PO DAILY [facility] Last Admin: 07/11/24 09:21 Dose: 10 mg Buprenorphine/Naloxone (Buprenorphine/Naloxone 8/2 Mg Film) 2 film SUBLINGUAL DAILY@0800 [facility] Last Admin: 07/11/24 09:20 Dose: 2 film Buprenorphine/Naloxone (Buprenorphine/Naloxone 8/2 Mg Film) 1 film SUBLINGUAL DAILY@1600 [facility] Last Admin: 07/10/24 15:37 Dose: 1 film Chlorpromazine HCl (Chlorpromazine Hcl 25 Mg Tablet) 50 mg PO TID [facility] Last Admin: 07/11/24 09:19 Dose: 50 mg Clonazepam (Clonazepam 0.5 Mg Tablet) 0.5 mg PO BID PRN PRN Reason: anxiety/restlessness Last Admin: 07/11/24 09:20 Dose: 0.5 mg Duloxetine HCl (Duloxetine Hcl 30 Mg Capsule.Dr) 30 mg PO BID [facility] Last Admin: 07/11/24 09:20 Dose: 30 mg Furosemide (Furosemide 20 Mg Tablet) 20 mg PO DAILY [facility]; Protocol Last Admin: 07/11/24 09:20 Dose: 20 mg Hydroxyzine HCl (Hydroxyzine Hcl 25 Mg Tablet) 25 mg PO Q6H PRN PRN Reason: mild anxiety Lidocaine (Lidocaine 4 % Patch Adh..Patch) 1 patch TRANSDERMA DAILY PRN PRN Reason: Pain, Mild (Pain Scale 1-3) Last Admin: 07/02/24 08:34 Dose: 1 patch Magnesium Hydroxide (Milk Of Magnesia 30 Ml Oral.Susp) 30 ml PO DAILY PRN PRN Reason: Constipation Mirtazapine (Mirtazapine 15 Mg Tablet) 15 mg PO BEDTIME [facility] Last Admin: 07/10/24 21:33 Dose: 15 mg Nicotine (Nicotine 14 Mg Patch.Td24) 14 mg TRANSDERMA DAILY [facility] Last Admin: 07/11/24 09:19 Dose: 14 mg Nicotine Polacrilex (Nicotine Polacrilex 2 Mg Gum) 4 mg BUCCAL Q2H PRN PRN Reason: Nicotine Cravings Nicotine Polacrilex (Nicotine Polacrilex Lozenge 4 Mg Lozenge) 4 mg BUCCAL Q2H PRN PRN Reason: Nicotine Cravings Last Admin: 07/11/24 09:21 Dose: 4 mg Oxcarbazepine (Oxcarbazepine 150 Mg Tablet) 150 mg PO TID [facility] Last Admin: 07/11/24 09:19 Dose: 150 mg Prazosin HCl (Prazosin Hcl 1 Mg Capsule) 2 mg PO BEDTIME [facility]; Protocol Last Admin: 07/10/24 21:34 Dose: 2 mg Propranolol HCl (Propranolol Hcl 20 Mg Tablet) 20 mg PO TID [facility]; Protocol Last Admin: 07/11/24 09:21 Dose: 20 mg Trazodone HCl (Trazodone Hcl 50 Mg Tablet) 50 mg PO BEDTIME MRX1 PRN PRN Reason: Insomnia Allergies Allergies Allergy/AdvReac Type Severity Reaction Status Date / Time No Known Allergies Allergy Verified 06/27/24 08:58 Assessment & Plan Assessment & Plan (1) Mixed emotional features as adjustment reaction: Status: Acute Code(s): F43.29 - Adjustment disorder with other symptoms (2) Depression: Status: Acute Code(s): F32.A - Depression, unspecified (3) Opioid use disorder, moderate, in early remission, on maintenance therapy, dependence: Status: Acute Code(s): F11.21 - Opioid dependence, in remission (4) UTI (urinary tract infection): Status: Acute Code(s): N39.0 - Urinary tract infection, site not specified Plan 06/29- Improving. Trileptal 150 mg tid (anxiety) Klonopin 0.5 mg bid prn anxiety until 07/02) Pt/team to apply to [facility] 06/30: Continue current regime and plan. Tolerating Trileptal thus far 07/01/ CTP 07/02 [facility]- continue current plan, regime. 07/05- continue current plan, regime. 07/07-Discussed options for med reduction, klonopin, chlorpromazine, trileptal. Pt asks that we not make changes. She reports current presentation is her discouragement at lack of acceptance for placement. 07/08 Patient reports that overall she remains doing better, anxiety lower, depression lower; denies any SI or HI. Patient shared that she was grateful that she had a good talk with program yesterday who said they would be scheduling a screening interview. Automated Weaver and patient discussed medications and she feels they are good the way they are and wants them to remain. Patient also anticipating being able to lead an AA group today on the unit. -had some odd dreams, accidentally left nicotine patch on 07/09 continue treatment plan 07/10 continue regime and plan 07/11 Discharge 07/12. Reason for continued inpatient stay Substantial Risk for: stable for discharge Time Spent With Patient Time: Total time managing care of this patient today ____ minutes.
[2024-07-11 15:51] VITALS: BP 110/66; PULSE 84
[2024-07-11] MEDS: Buprenorphine/Naloxone 8/2 mg FILM 1 FILM SUBLINGUAL (15:51)
[2024-07-11 19:26] VITALS: BP 98/50; PULSE 80; TEMP 36.8; O2SAT 97
[2024-07-11] MEDS: Prazosin HCL 1 MG CAPSULE 2 MG PO (20:21)
[2024-07-11] MEDS: Mirtazapine 15 MG TABLET PO (20:21)
[2024-07-12 07:46] VITALS: BP 95/57; PULSE 80; RESP 16; TEMP 36.9; O2SAT 96
[2024-07-12 08:35] VITALS: BP 110/70
[2024-07-12] MEDS: chlorproMAZINE HCl 25 MG TABLET 50 MG PO (08:35)
[2024-07-12] MEDS: Furosemide 20 MG TABLET PO (08:35)
[2024-07-12] MEDS: OXcarbazepine 150 MG TABLET PO (08:35)
[2024-07-12] MEDS: Buprenorphine/Naloxone 8/2 mg FILM 2 FILM SUBLINGUAL (08:35)
[2024-07-12 08:36] VITALS: BP 110/70; PULSE 80
[2024-07-12] MEDS: Propranolol HCL 20 MG TABLET PO (08:36)
[2024-07-12] MEDS: Nicotine Polacrilex Lozenge 4 MG LOZENGE BUCCAL (08:36)
[2024-07-12] MEDS: clonazePAM 0.5 MG TABLET PO (08:36)
[2024-07-12] MEDS: Atorvastatin Calcium 10 MG TABLET PO (08:36)
[2024-07-12] MEDS: DULoxetine HCl 30 MG CAPSULE.DR PO (08:36)
--- NOTE | 2024-07-12 10:43 | PM.PSYDC ---
DS: Providers Provider Date of Service: 07/12/24 Date of admission: 06/27/24 14:56 Date of discharge: 07/12/24 Primary care physician: Unknown Physician Admitting clinician: Jillian Leal Attending physician on admission: [facility] Smith Consults: 07/04/24 05:01 Addiction Medicine Provider Routine Consulting Provider: Addiction Covering Reason for consultation: recovery coaching and AA support Attending physician on discharge: [facility] Smith Discharging clinician: Jillian Leal DS: Diagnosis Discharge Diagnosis (1) Mixed emotional features as adjustment reaction: Status: Acute (2) Depression: Status: Acute (3) Opioid use disorder, moderate, in early remission, on maintenance therapy, dependence: Status: Acute (4) UTI (urinary tract infection): Status: Acute DS: Medications Discharge Medications Home Medications: Previous Rx's ?Medication ?Instructions ?Recorded acetaminophen 325 mg tablet 650 mg (2 x 325 mg) PO Q6H PRN 07/12/24 Headache/Pain, Scale 1-10 #240 tabs atorvastatin 10 mg tablet 10 mg PO DAILY #30 tabs 07/12/24 buprenorphine 8 mg-naloxone 2 mg 1 film sublingual DAILY@1600 #2 ea 07/12/24 sublingual film (Suboxone) buprenorphine 8 mg-naloxone 2 mg 2 film sublingual DAILY@0800 #4 ea 07/12/24 sublingual film (Suboxone) chlorpromazine 25 mg tablet 50 mg (2 x 25 mg) PO TID #90 tabs 07/12/24 clonazepam 0.5 mg tablet 0.5 mg PO BID PRN 07/12/24 Anxiety/Restlessness #60 tabs duloxetine 30 mg capsule,delayed 30 mg PO BID #60 caps 07/12/24 release furosemide 20 mg tablet 20 mg PO DAILY #30 tabs 07/12/24 lidocaine 4 % topical patch 1 patch transdermal DAILY PRN 07/12/24 (Lidocaine Pain Relief) Pain, Mild (Pain Scale 1-3) #30 ea mirtazapine 15 mg tablet 15 mg PO BEDTIME #30 tabs 07/12/24 nicotine (polacrilex) 4 mg buccal 4 mg buccal Q2H PRN Nicotine 07/12/24 lozenge Cravings #100 ea nicotine 14 mg/24 hr daily 14 mg transdermal DAILY #30 ea 07/12/24 transdermal patch oxcarbazepine 150 mg tablet 150 mg PO TID #90 tabs 07/12/24 prazosin 1 mg capsule 2 mg PO BEDTIME #60 caps 07/12/24 propranolol 20 mg tablet 20 mg PO TID #90 tabs 07/12/24 Mental Status Exam Mental Status Exam Patient Appearance: Appropriate Patient Orientation: Person, Place, Time and Situation Level of Consciousness: Alert Patient Behavior: Talkative and Good Eye Contact Mood Description: Sad Affect Description: Flat Patient Cognition Impaired: No Ability to Follow Directions: Good Speech Pattern: Spontaneous Speech Memory Description: Intact Hallucinations: None Delusions: Not Present Thought Process: Intact and Goal Oriented Thought Content: positive for Intact and positive for Goal Oriented Depressive Symptoms: Increased Anxiety Judgement: Good Data Data Completed and Pending Completed studies during hospitalization [Text1]: 06/27/24 Unknown Urine clean catch - Clean Catch Midstream Urine Culture - Final Escherichia coli Treated with Ceftin DS: Summary Hospital Course Hospital Course: Admission to adult psychiatry for exacerbation of recurrent major depression with SI, opiate use disorder (sober 2.5 months) and situational crisis. Pt had been in the [facility] residential program and was asked to leave when it was found she had a nicotine vape in her room. She reports this was not intentional and was sent into crisis with this termination of treatment. Medications were reviewed and adjusted. Pt was able to participate in the milieu. 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 She and the team did an extensive search for programs she could continue with, without success. She discharges to respite and will continue her search with their team. Status at Discharge Functional status at discharge: independent ambulation Overall status at discharge: patient is progressing back to baseline Time Spent with Patient Time attestation: Total time managing care of this patient today ____ minutes. Time spent: Less than 30 minutes Discharge Plan Discharge Anticipated Discharge Date/Time: 07/12/24 12:00 Patient Disposition: Xfer Other Discharge Diagnosis: Major Depression, Recurrent Opiate Dependence Adjustment Reaction, Mixed Referrals: [facility] Appointment with Laurel Marti [Other] - 07/13/24 2:30 pm [facility] Psychiat[facility] and Therapy [Other] - 1 Week (This is a same day walk in intake for psychiatry and therapy. Walk-in Hours: M-F 8am - 8pm Sat 9am - 5pm The first appointment is an intake only. It is recommended you get your intake in as soon as possible as there will likely be a wait time between your intake and your first psychiatry and therapy appointments. ) Physician,Unknown J [Primary Care Provider] - 1 Week Discharge Medications: New acetaminophen 325 mg Tablet 650 mg PO Q6H PRN (Reason: Headache/Pain, Scale 1-10) Qty: 240 0RF nicotine 14 mg/24 hr Patch 24 Hour 14 mg transdermal DAILY Qty: 30 0RF atorvastatin 10 mg Tablet 10 mg PO DAILY Qty: 30 0RF prazosin 1 mg Capsule 2 mg PO BEDTIME Qty: 60 0RF Protocol: Hold for SBP< HOLD for SBP < : 90 clonazepam 0.5 mg Tablet 0.5 mg PO BID PRN (Reason: Anxiety/Restlessness) Qty: 60 0RF chlorpromazine 25 mg Tablet 50 mg PO TID Qty: 90 0RF propranolol 20 mg Tablet 20 mg PO TID Qty: 90 0RF Protocol: Hold for SBP/HR < HOLD for SBP < : 90 HOLD for HR < : 60 nicotine (polacrilex) 4 mg Lozenge 4 mg buccal Q2H PRN (Reason: Nicotine Cravings) Qty: 100 0RF duloxetine 30 mg Capsule,Delayed Release(Dr/Ec) 30 mg PO BID Qty: 60 0RF buprenorphine-naloxone [Suboxone] 8-2 mg Film 1 film sublingual DAILY@1600 Qty: 2 0RF buprenorphine-naloxone [Suboxone] 8-2 mg Film 2 film sublingual DAILY@0800 Qty: 4 0RF oxcarbazepine 150 mg Tablet 150 mg PO TID Qty: 90 0RF lidocaine [Lidocaine Pain Relief] 4 % Adhesive Patch,Medicated 1 patch transdermal DAILY PRN (Reason: Pain, Mild (Pain Scale 1-3)) Qty: 30 0RF furosemide 20 mg Tablet 20 mg PO DAILY Qty: 30 0RF Protocol: Hold for SBP< HOLD for SBP < : 90 mirtazapine 15 mg Tablet 15 mg PO BEDTIME Qty: 30 0RF Discontinued prazosin 1 mg Capsule 2 mg PO BEDTIME diphenhydramine HCl [Benadryl] 25 mg Capsule 25 mg PO BID chlorpromazine 25 mg Tablet 25 mg PO TID PRN (Reason: Agitation) furosemide 20 mg Tablet 20 mg PO DAILY mirtazapine 15 mg Tablet 15 mg PO BEDTIME propranolol 20 mg Tablet 20 mg PO TID PRN (Reason: Anxiety) rosuvastatin 20 mg Tablet 20 mg PO DAILY duloxetine 30 mg Capsule,Delayed Release(Dr/Ec) 30 mg PO BID buprenorphine-naloxone [Suboxone] 8-2 mg Film 1 film BUCCAL BID lidocaine 4 % Adhesive Patch,Medicated 1 patch TOPICAL DAILY PRN (Reason: Pain) Discharge Orders: Discharge Order (Routine); Ordered 07/12/24 Ordered By: Jillian Leal Diet: Advance to usual diet Activity on Discharge: As tolerated Stand Alone Forms: Patient Portal Discharge page, Community Support Print Language: Togolese Care Plan Goals: Mood and Behavioral Stabilization Abstinence from substances Health Concerns: Mood and Behavioral Stabilization Abstinence from substances Plan of Treatment: Attend scheduled appointments Take medications as directed Continue to re-enforce your sobriety Assessment: No SI,HI,AH,VH No sx of acute felicita or psychosis Apprehensive about this next step in her recovery Patient Instructions: Anxiety (ED) Discharge Date/Time: 07/12/24 11:46
== END 2024-07-12 11:46 | disposition other institution (70) | DRG 755 ==
LOC: HO.ED 14:56 → HO.PM5 14:59
PROVIDERS: Admitting Provider Clinical Nurse Specialist Psychiatric/Mental Health, Adult; Emergency Provider Student in an Organized Health Care Education/Training Program; Visit Provider Clinical Nurse Specialist Psychiatric/Mental Health, Adult
DX: F43.25 Adjustment disorder with mixed disturbance of emotions and conduct (principal); F11.20 Opioid dependence, uncomplicated; F33.9 Major depressive disorder, recurrent, unspecified; N39.0 Urinary tract infection, site not specified; F17.210 Nicotine dependence, cigarettes, uncomplicated; Z71.6 Tobacco abuse counseling; Z79.899 Other long term (current) drug therapy
CPT/HCPCS: 36415; 80053; 80061; 80307; 81001; 82607; 82746; 83036; 83735; 84439; 84443; 85025; 87086; 87088; 87186; 93005; 99285; S9485

== ENCOUNTER → 2024-06-27 14:37 | Outpatient (BNV) | payer OTHER, SELFPAY | PROVIDERS: Admitting Provider Clinical Nurse Specialist Psychiatric/Mental Health, Adult; Emergency Provider Student in an Organized Health Care Education/Training Program; Visit Provider Internal Medicine | DX: R00.1 Bradycardia, unspecified (principal) | CPT/HCPCS: 93010 ==

== ENCOUNTER → 2024-06-27 14:56 | Outpatient (BNV) | payer OTHER, SELFPAY | PROVIDERS: Admitting Provider Clinical Nurse Specialist Psychiatric/Mental Health, Adult; Emergency Provider Student in an Organized Health Care Education/Training Program; Visit Provider Clinical Nurse Specialist Psychiatric/Mental Health, Adult | DX: F32.2 Major depressive disorder, single episode, severe without psychotic features (principal); F11.21 Opioid dependence, in remission; F43.29 Adjustment disorder with other symptoms; N39.0 Urinary tract infection, site not specified | CPT/HCPCS: 99232 ==

== ENCOUNTER 2024-07-30 11:11 | Emergency (ER) | payer OTHER, SELFPAY ==
--- NOTE | ~2024-07-30 | XR_ITS ---
CLINICAL HISTORY: pain and swelling 3 weeks 5 view right knee Comparison: None Findings: No fractures or dislocations. No significant loss of joint space, osteophytes, or erosions. Rfdzt-fo-tujydton joint effusion. No radiopaque foreign body. IMPRESSION: Obbgm-ux-hvnzjlln joint effusion. No fracture or malalignment. This document has been electronically signed by: Mendoza Eller MD on 07/30/2024 16:42:25
--- NOTE | 2024-07-30 11:32 | ED.GENADULT ---
HPI - General Adult General Chief complaint: Extremity Injury, Lower Stated complaint: knee swelling Time Seen by Provider: 07/30/24 12:13 History of Present Illness ED Provider: Regina WOOD narrative: The patient is a 58-year-old woman. She has a history of opioid use disorder and is on Suboxone. She says she has never used IV or injectable opioids or other drugs however. The patient says she has had problems with pain in her right knee for several months and it has been worse over the last 3 weeks. She thinks the pain began last January. She does not think she ever had any significant injury. She does not think she has had any recent tick bites. She has not had any fever, sweats, chills. She says that over the last 3 weeks she has developed increased swelling and pain to the knee. She does not feel sick otherwise. Related Data Previous Rx's ?Medication ?Instructions ?Recorded acetaminophen 325 mg tablet 650 mg (2 x 325 mg) PO Q6H PRN 07/12/24 Headache/Pain, Scale 1-10 #240 tabs atorvastatin 10 mg tablet 10 mg PO DAILY #30 tabs 07/12/24 buprenorphine 8 mg-naloxone 2 mg 1 film sublingual DAILY@1600 #2 ea 07/12/24 sublingual film (Suboxone) buprenorphine 8 mg-naloxone 2 mg 2 film sublingual DAILY@0800 #4 ea 07/12/24 sublingual film (Suboxone) chlorpromazine 25 mg tablet 50 mg (2 x 25 mg) PO TID #90 tabs 07/12/24 clonazepam 0.5 mg tablet 0.5 mg PO BID PRN 07/12/24 Anxiety/Restlessness #60 tabs duloxetine 30 mg capsule,delayed 30 mg PO BID #60 caps 07/12/24 release furosemide 20 mg tablet 20 mg PO DAILY #30 tabs 07/12/24 lidocaine 4 % topical patch 1 patch transdermal DAILY PRN 07/12/24 (Lidocaine Pain Relief) Pain, Mild (Pain Scale 1-3) #30 ea mirtazapine 15 mg tablet 15 mg PO BEDTIME #30 tabs 07/12/24 nicotine (polacrilex) 4 mg buccal 4 mg buccal Q2H PRN Nicotine 07/12/24 lozenge Cravings #100 ea nicotine 14 mg/24 hr daily 14 mg transdermal DAILY #30 ea 07/12/24 transdermal patch oxcarbazepine 150 mg tablet 150 mg PO TID #90 tabs 07/12/24 prazosin 1 mg capsule 2 mg PO BEDTIME #60 caps 07/12/24 propranolol 20 mg tablet 20 mg PO TID #90 tabs 07/12/24 ibuprofen 400 mg tablet 400 mg PO Q6H PRN pain #14 tabs 07/30/24 morphine 15 mg immediate release 15 mg PO Q6H PRN pain #16 tabs 07/30/24 tablet Allergies Allergy/AdvReac Type Severity Reaction Status Date / Time amoxicillin Allergy Hives Verified 07/30/24 11:35 Review of Systems Review of Systems: Yes all other systems are reviewed and are negative [facility] Past Medical History Medical History (Updated 07/30/24 @ 16:09 by Patrick Tapia MD) Polysubstance use disorder Opioid use disorder, moderate, in early remission, on maintenance therapy, dependence Social History Social History Household Members: None Housing: Homeless Do you presently have visiting nurse or other home services: No Patient Tobacco Use Status: Current everyday Tobacco user Smoked in Last 30 Days: Yes Use of substances other than those prescribed or required for medical reasons: No Advance Directives: No Advance Directives Information Provided: No Do you have a plan to hurt others: No Plan Patient : No service: No Sexual orientation: Unable to collect Physical Exam ED Vital Signs: Vital Signs - 24 hr 07/30/24 11:34 07/30/24 12:03 07/30/24 14:14 Temperature 98 F 97.2 F Pulse Rate 73 69 67 Respiratory Rate 19 16 18 Blood Pressure 108/63 119/72 124/71 Pulse Oximetry 98 98 97 Oxygen Delivery Method Room Air Room Air Room Air 07/30/24 16:33 Temperature 97.2 F Pulse Rate 67 Respiratory Rate 18 Blood Pressure 124/71 Pulse Oximetry 97 Oxygen Delivery Method Room Air BMI result Body Mass Index 27.5 Const Other: The patient is awake and alert. She looks somewhat chronically ill but not acutely ill. She has not appear in overt distress. HENMT Other: Face is symmetrical, mucous membranes moist Eyes General: appearance normal, both eyes and all related structures Pupils: Equal, round and reactive pupils present EOM: EOMs intact bilaterally Neck Neck: Yes normal visual inspection, Yes full ROM and Yes no lymphadenopathy Resp Effort & Inspection: normal respiratory effort Auscultation: clear to auscultation bilaterally Cardio Other: No cardiac murmur appreciated Rate: regular rate Rhythm: regular rhythm Heart sounds: S1 normal heart sound present and S2 normal heart sound present GI Other: Abdomen is soft and nontender Skin Other: The skin of the knee looks swollen but there is no erythema or warmth. Neuro Other: The patient is awake and alert. Mental status is normal. Cranial nerves are intact. She has intact strength and sensation accept her strength in her right leg is limited by pain in the right knee. She walks with a limp. Cranial nerves: Yes Equal, round and reactive pupils present Extrem Other: The patient has diffuse swelling to the right knee consistent with an effusion. There is no erythema or warmth. She is able to put the knee through a reasonably good range of motion but she does this very slowly. She is unable to fully straighten the leg but can bend it fairly well. She clearly has discomfort when moving the knee. The feet are well-perfused. Course Course Course Narrative: This is a rapid medical exam performed by Marifer Silver NP: Additional HPI, ROS, PE not included below will be deferred to primary provider. 07/30/24 11:33 Patient is a 58-year-old female presenting with complaint of right knee pain and swelling x 3 weeks. Reports ongoing symptoms since the end of last summer when she states was bitten by a brown recluse spider. Decreased ROM due to swelling. Unable to fully visualize in triage as patient wearing jeans but visible swelling noted. Plan: x-ray, labs Medications Administered Discontinued Medications Generic Name Dose Route Start Last Admin Trade Name Marie PRN Reason Stop Dose Admin Ketorolac Tromethamine 30 mg 07/30/24 13:19 07/30/24 13:44 Ketorolac Tromethamine 30 Mg/Ml Vial IM 07/30/24 13:20 30 mg ONCE ONE Administration Lidocaine HCl 10 ml 07/30/24 12:52 07/30/24 13:05 Lidocaine Hcl 1 % 20 Ml Vial INFILTRATI 07/30/24 12:53 10 ml ONCE ONE Administration Procedures Joint Aspiration/Injection Joint Asp./Inject. 1: Time Out Performed: Yes Side of body: right Joint Aspirated: knee Ultrasound Guidance: Yes Skin Prep: Povidone-Iodine1% Local Anesthetic: lidocaine 1% Amount of anesthesia used (mL): 3 Needle Size Used: 18G Fluid Obtained: clear (At 1st I thought the fluid looked somewhat straw-colored and clear. As I removed the needle however a fair amount of blood came into the fluid) Total fluid obtained (mL): 30 Patient Tolerated Procedure: well Complications: none Medical Decision Making Medical Decision Making [facility] Narrative: The patient is a 58-year-old woman who presents with right knee pain and swelling. On physical exam and on x-ray today she seems to have a joint effusion. The patient says that her knee problems has been going on for months but has been worse over the last 3 weeks. She denies any inciting injury. She does not think she has had any tick bites. She has not had any fevers. Clinically this seems unlikely to be a septic arthritis given the absence of any fevers in the absence of any warmth or redness to the joint and the degree to which the patient is able to move the knee. An x-ray of the knee reveals an effusion but no other significant findings. A CBC shows a white count of 5.0. Differential shows 42% neutrophils and 44% lymphocytes. ESR is 8. CRP is minimally elevated at 0.66. Chemistries are unremarkable. After obtaining informed consent from the patient I performed an arthrocentesis of the right knee under sterile conditions after 1st identifying a pocket of the effusion with the ultrasound. Proximally 30 mL of fluid were aspirated. At 1st the fluid looked serous but became significantly blood-tinged at the end of the procedure when I removed the needle. Initially I did not feel that there was any blood in the joint fluid. The cell count shows 351 white cells with a differential of 6% neutrophils, 12% lymphocytes, and 82% monocytes. A Gram stain and culture are pending. Crystals are negative. A Lyme study is pending. At this point my suspicion for acute Lyme arthritis is low and therefore I will not be starting empiric antibiotics. On the whole I do not have a great explanation for why this person has an effusion. She does not have significant arthritis on her x-ray. The patient will be given a knee immobilizer and crutches and advised to use ibuprofen. She was also given a morphine prescription (she is on Suboxone and she was advised to continue Suboxone while using any morphine tablets). The patient is new in his area and does not have a PCP. The patient will be referred to Orthopedics. I hope she can be seen in follow up in the orthopedic office. She should also work on getting a PCP. Lab Data 07/30/24 11:57 07/30/24 11:57 Labs: Lab Results 07/30/24 07/30/24 Range/Units 11:57 13:32 WBC 5.0 (4.8-10.8) X10*3/uL RBC 4.20 (4.20-5.50) X10*6/uL Hgb 12.3 (12.0-16.0) g/dl Hct 35.9 L (37.0-47.0) % MCV 85.5 (80.0-98.0) fL MCH 29.3 (27.0-33.0) pg MCHC 34.3 (31.0-35.0) g/dl RDW 12.1 (11.0-16.0) % Plt Count 257 (160-400) X10*3/uL MPV 8.6 L (9.4-12.3) fL Immature Gran % (Auto) 0.2 (0.0-0.4) % Neut % (Auto) 42.0 L (45-73) % Lymph % (Auto) 44.8 H (20-40) % Peach % (Auto) 11.2 H (2-11) % Eos % (Auto) 1.4 (0-4) % Baso % (Auto) 0.4 (0-2) % Lymph # (Auto) 2.2 (1.2-4.9) X10*3/uL Peach # (Auto) 0.6 (0.1-1.2) X10*3/uL Eos # (Auto) 0.1 (0.0-0.4) X10*3/uL Baso # (Auto) 0.0 (0.0-0.2) X10*3/uL Abs Immat Gran (auto) 0.01 (0.00-0.03) X10*3/uL Absolute Neuts (auto) 2.1 (2.0-8.3) x10*3/uL Absolute Nucleated RBC 0.000 (0.0-0.012) X10*3/uL Nucleated RBC % (auto) 0.0 (0.0-0.2) /100WBC ESR 8 (0-20) MM/HR Sodium 132 L (135-145) mmol/L Potassium 4.2 (3.3-5.1) mmol/L Chloride 97 (96-108) mmol/L Carbon Dioxide 25 (22-29) mmol/L Anion Gap 14 (12-20) BUN 9 (9-16) mg/dL Creatinine 0.70 (0.5-1.4) mg/dL Estim Creat Clear Calc 88.7 Estimated GFR > 60 Random Glucose 104 (60-115) mg/dL Uric Acid 4.2 (2.4-5.7) mg/dL Calcium 9.3 (8.4-10.2) mg/dL Total Bilirubin 0.3 (0.0-1.0) mg/dL AST 27 (5-31) U/L ALT 18 (0-31) U/L Alkaline Phosphatase 74 (39-117) U/L C-Reactive Protein 0.66 H (< or = 0.50) mg/dL Total Protein 6.9 (6.5-8.0) g/dL Albumin 4.4 (3.5-5.0) g/dL Synovial Source right knee Synovial WBC 0.351 X10*3/uL Synovial RBC 0.017 X10*6/uL Synovial Neutrophils 6 % Synovial Lymphocytes 12 % Synovial Monocytes 82 % Discharge Plan Discharge Clinical Impression: Effusion of right knee Patient Disposition: Home, Self-Care Additional Instructions: Please use the knee immobilizer provided and the crutches to help keep weight off the knee and to keep the knee supported. Rest and elevate the right leg. I have sent prescriptions for ibuprofen and morphine tablets that you may use as needed for pain. You may also use acetaminophen (Tylenol). Please contact the orthopedic office on Wednesday for a follow up appointment to discuss your knee joint swelling further. Please work on getting a primary care doctor. Return to the emergency room if worse. Prescriptions: New morphine 15 mg tablet 15 mg PO Q6H PRN (Reason: pain) Qty: 16 0RF Rx Instructions: Partial Fill upon patient request. ibuprofen 400 mg tablet 400 mg PO Q6H PRN (Reason: pain) Qty: 14 0RF No Action acetaminophen 325 mg Tablet 650 mg PO Q6H PRN (Reason: Headache/Pain, Scale 1-10) Qty: 240 0RF nicotine 14 mg/24 hr Patch 24 Hour 14 mg transdermal DAILY Qty: 30 0RF atorvastatin 10 mg Tablet 10 mg PO DAILY Qty: 30 0RF prazosin 1 mg Capsule 2 mg PO BEDTIME Qty: 60 0RF Protocol: Hold for SBP< HOLD for SBP < : 90 clonazepam 0.5 mg Tablet 0.5 mg PO BID PRN (Reason: Anxiety/Restlessness) Qty: 60 0RF chlorpromazine 25 mg Tablet 50 mg PO TID Qty: 90 0RF propranolol 20 mg Tablet 20 mg PO TID Qty: 90 0RF Protocol: Hold for SBP/HR < HOLD for SBP < : 90 HOLD for HR < : 60 nicotine (polacrilex) 4 mg Lozenge 4 mg buccal Q2H PRN (Reason: Nicotine Cravings) Qty: 100 0RF duloxetine 30 mg Capsule,Delayed Release(Dr/Ec) 30 mg PO BID Qty: 60 0RF buprenorphine-naloxone [Suboxone] 8-2 mg Film 1 film sublingual DAILY@1600 Qty: 2 0RF buprenorphine-naloxone [Suboxone] 8-2 mg Film 2 film sublingual DAILY@0800 Qty: 4 0RF oxcarbazepine 150 mg Tablet 150 mg PO TID Qty: 90 0RF lidocaine [Lidocaine Pain Relief] 4 % Adhesive Patch,Medicated 1 patch transdermal DAILY PRN (Reason: Pain, Mild (Pain Scale 1-3)) Qty: 30 0RF furosemide 20 mg Tablet 20 mg PO DAILY Qty: 30 0RF Protocol: Hold for SBP< HOLD for SBP < : 90 mirtazapine 15 mg Tablet 15 mg PO BEDTIME Qty: 30 0RF Referrals: [facility] [place] [facility] [Provider Group] (Right knee effusion) Interventions: ED Discharge Assessment Last Done: 07/30/24 16:33 Discharge Date/Time: 07/30/24 16:34 Print Language: Occitan
[2024-07-30 11:34] VITALS: BP 108/63; PULSE 73; RESP 19; TEMP 36.6; O2SAT 98; BMI 27.5
[2024-07-30 12:03] VITALS: BP 119/72; PULSE 69; RESP 16; O2SAT 98
[2024-07-30 12:03] LABS: MANUAL DIFF FLAG NO
[2024-07-30 12:06] LABS: Basophils Percent Auto 0.4 % (0-2); Eosinophils Absolute Auto 0.1 X10*3/uL (0.0-0.4); Eosinophils Percent Auto 1.4 % (0-4); Hematocrit 35.9 % (37.0-47.0); Hemoglobin 12.3 g/dl (12.0-16.0); Imm Gran Abs Auto 0.01 X10*3/uL (0.00-0.03); Imm Gran Pct Auto 0.2 % (0.0-0.4); Lymphocytes Absolute Auto 2.2 X10*3/uL (1.2-4.9); Lymphocytes Percent Auto 44.8 % (20-40); Mean Corpuscular HGB Conc 34.3 g/dl (31.0-35.0); Mean Corpuscular Hemoglobin 29.3 pg (27.0-33.0); Mean Corpuscular Volume 85.5 fL (80.0-98.0); Mean Platelet Volume 8.6 fL (9.4-12.3); Monocytes Absolute Auto 0.6 X10*3/uL (0.1-1.2); Monocytes Percent Auto 11.2 % (2-11); Neutrophils Absolute Auto 2.1 x10*3/uL (2.0-8.3); Platelet Count 257 X10*3/uL (160-400); Red Cell Distribution Width 12.1 % (11.0-16.0)
[2024-07-30 12:22] LABS: Alanine Aminotransferase 18 U/L (0-31); Albumin Level 4.4 g/dL (3.5-5.0); Alkaline Phosphatase 74 U/L (39-117); Anion Gap 14 (12-20); Aspartate Amino Transferase 27 U/L (5-31); Bilirubin Total 0.3 mg/dL (0.0-1.0); Blood Urea Nitrogen 9 mg/dL (9-16); C Reactive Protein 0.66 mg/dL (< or = 0.50); Calcium 9.3 mg/dL (8.4-10.2); Carbon Dioxide 25 mmol/L (22-29); Chloride 97 mmol/L (96-108); Creatinine Clr Calc Pharmacy 88.7; Estimated Glomerular Filt Rate > 60; Glucose Random 104 mg/dL (60-115); Potassium 4.2 mmol/L (3.3-5.1); Sodium 132 mmol/L (135-145); Total Protein 6.9 g/dL (6.5-8.0); Uric Acid 4.2 mg/dL (2.4-5.7)
[2024-07-30 12:56] LABS: Erythrocyte Sedimentation Rate 8 MM/HR (0-20)
[2024-07-30] MEDS: Lidocaine HCl 1 % 20 ML VIAL 10 ML INFILTRATI (13:05)
[2024-07-30 13:37] LABS: Source Synovial Fluid right knee
[2024-07-30] MEDS: Ketorolac Tromethamine 30 MG/ML VIAL IM (13:44)
[2024-07-30 14:14] VITALS: BP 124/71; PULSE 67; RESP 18; TEMP 36.2; O2SAT 97
[2024-07-30 14:14] LABS: MN% 89.3 %; PMN% 10.7 %; RBC Synovial Fluid 0.017 X10*6/uL
[2024-07-30 14:20] LABS: WBC Synovial Fluid 0.351 X10*3/uL
[2024-07-30 14:45] LABS: BF Shift QC OK YES; Lymphocytes Synovial Fluid 12 %; Monocytes Synovial Fluid 82 %; Neutrophils Synovial Fluid 6 %
[2024-07-30 16:33] VITALS: BP 124/71; PULSE 67; RESP 18; TEMP 36.2; O2SAT 97
[2024-07-31 07:50] LABS: Glucose Synovial Fluid 103; Total Protein Synovial Fluid 4.7
[2024-08-01 21:54] LABS: Lyme PCR Source SYNOVIAL FLUID; Lyme Synovial Fluid PCR NOT DETECTED (NOT DETECTED)
== END 2024-07-30 16:34 | disposition home or self-care (01) ==
PROVIDERS: Registered Nurse Emergency; Emergency Provider Emergency Medicine
DX: M25.461 Effusion, right knee (principal); M25.561 Pain in right knee; F11.20 Opioid dependence, uncomplicated; Z79.899 Other long term (current) drug therapy
CPT/HCPCS: 20610; 36415; 73564; 80053; 82945; 84157; 84550; 85025; 85652; 86140; 87070; 87073; 87205; 87476; 89051; 89060; 96372; 99284; J1885; J2003

== ENCOUNTER → 2024-07-30 11:36 | Outpatient (BNV) | payer OTHER, SELFPAY | PROVIDERS: Emergency Provider Emergency Medicine; Visit Provider Radiology Vascular & Interventional Radiology | DX: M25.561 Pain in right knee (principal) | CPT/HCPCS: 73564 ==

== ENCOUNTER 2024-08-08 06:10 | Outpatient (REF) | payer OTHER, SELFPAY ==
--- NOTE | ~2024-08-08 | XR_ITS ---
EXAMINATION: XR KNEE, RIGHT CLINICAL INFORMATION: M25.569 - Pain in unspecified knee COMPARISON: Right knee 07/30/2024. TECHNIQUE: AP view bilateral knees standing, and patellofemoral view right knee. FINDINGS: LEFT Knee: No fracture or dislocation. Normal alignment. Mild medial compartment joint space narrowing. Normal soft tissues. RIGHT Knee: No fracture or dislocation. Normal alignment. Mild to moderate medial compartment joint space narrowing. Mild patellofemoral joint space narrowing involving the lateral facet. Mild lateral patellar tilt. Normal soft tissues. XR/XR knee RT 2V IMPRESSION: 1. Mild to moderate RIGHT knee medial and mild patellofemoral compartment osteoarthritis. 2. Mild medial compartment LEFT knee osteoarthritis. Electronically signed by: Migue Pham MD 08/09/2024 12:00 PM EDT
== END 2024-08-08 06:11 | disposition home or self-care (01) ==
LOC: HO.HOSX 06:10
PROVIDERS: Visit Provider Physician Assistant
DX: M25.561 Pain in right knee (principal); M25.461 Effusion, right knee
CPT/HCPCS: 20610; 73560; 99202; J1010; J2003

== ENCOUNTER 2024-08-08 11:43 | Outpatient (AMB) | payer OTHER, SELFPAY ==
--- NOTE | 2024-08-08 11:52 | A.OFFVIS_ITS ---
Vital Signs 08/08/24 11:59 Height 5 ft 5 in Weight 165 lb BMI 27.5 Intake Visit Reasons: ED f/u RT Knee effusion Intake Note: Cleo is a 58 year old female who presents today for an ER follow up of right knee effusion. Patient was seen for right knee pain and swelling for the last several months that has recently been getting worse the past few weeks. She believes her pain presented around last January, however she does not recall any injury. She was seen at [facility] [place] [facility] on 07/30/24, where x-rays were done and referred to orthopedics. She states that she is having pain in both knees. Patient reports that her right knee is worse than the left knee. Patient is having pain on the lateral and medial aspect of the right knee and it goes to the back of her knee. She mentions that her left knee pain is on the medial aspect of the knee. Patient states that she has been taking ibuprofen with no relief. Allergies amoxicillin Allergy (Verified 08/08/24 11:56) Hives HPI HPI ED f/u RT Knee effusion: Details: Ms. Juarez is a 58 year old female who presents today for an ER follow up of right knee effusion. Patient was seen for right knee pain and swelling for the last several months that has recently been getting worse the past few weeks. She believes her pain presented around last January, however denies any injury or trauma. She was seen at [facility] [place] on 07/30/24, where x-rays were done and the patient reports they aspirated her knee. Patient reports that her right knee is worse than the left knee and the pain is located along the medial and lateral aspects of the knee as well as posteriorly to the knee. She does endorse a history of low back pain that radiates to the right lower extremity. She reports that she was seeing a provider in [place] but they are no longer practicing and is looking to establish care with someone. Patient states that she has been taking ibuprofen with no relief. [facility] Medical History (Updated 07/31/24 @ 00:01 by Lev Galvan) Polysubstance use disorder Opioid use disorder, moderate, in early remission, on maintenance therapy, dependence Social History (Updated 08/08/24 @ 11:59 by Camden Muniz) Household Members: None Housing: Homeless Do you presently have visiting nurse or other home services: No Patient Tobacco Use Status: Current everyday Tobacco user service: No Current occupational status: unemployed Sexual orientation: Unable to collect Review of Systems Const All systems reviewed & are unremarkable except as noted in HPI and below Physical Exam Vital Signs: BMI result Body Mass Index 27.5 Const General: cooperative, healthy appearing and no acute distress Resp Effort & Inspection: normal respiratory effort and able to speak in complete sentences Cardio Rate: regular rate Peripheral pulses: Peripheral pulses 2+ throughout Skin Lesions: no lesions Rashes: no rashes Extrem Other: Right knee normal to inspection no ecchymosis erythema or joint effusion present. Full range motion passively. Patient reports pain with any motion. Tenderness to palpation medial and lateral joint lines. Unable to assess Jauqan's or anterior drawer due to patient guarding and pain. NVI. Office Procedures AMB Joint Injection/Aspiration Joint Injection/Aspiration Primary Site: right knee Prep: site was prepped using aseptic technique, ethochloride spray was applied and injection warnings given Injected: 80 mg of, DepoMedrol, with 8 mL of (2% plain lidocaine) and in the joint Approach Used: anterolateral Procedure: The patient tolerated the procedure well, but had some pain with the injection and there was some relief with the local anesthesia Coding 60614 - Large joint Procedure code (CPT) selection complete Assessment & Plan Assessment & Plan (1) Effusion of right knee: Code(s): M25.461 - Effusion, right knee Category: Medical Plan Ms. Juarez is a 58 year old female who presents today for an ER follow up of right knee effusion. Patient was seen for right knee pain and swelling for the last several months that has recently been getting worse the past few weeks. She believes her pain presented around last January, however denies any injury or trauma. She was seen at [facility] on 07/30/24, where x-rays were done and the patient reports they aspirated her knee. Patient reports that her right knee is worse than the left knee and the pain is located along the medial and lateral aspects of the knee as well as posteriorly to the knee. She does endorse a history of low back pain that radiates to the right lower extremity. She reports that she was seeing a provider in [place] but they are no longer practicing and is looking to establish care with someone. Patient states that she has been taking ibuprofen with no relief. While the office today, the patient's complaints are mainly localized to her knee. Although she does have a history of low back pain and would like to establish care with someone, today's visit was slowly focused on her right knee. We discussed the role of cortisone injection as a conservative treatment option as the patient had an aspiration while in the emergency department but continues to have pain. Aspiration was deferred at today's visit due to no joint effusion noted on exam. The patient was offered a cortisone injection in the right knee with 80 mg of DepoMedrol. The patient was explained the risks, benefits, and alternatives to receiving this injection. After receiving consent for the injection, the patient had the procedure done while in the office today. The patient tolerated the procedure well with no complications. Follow-up will be p.r.n., or sooner if needed Appointment to establish care for low back pain was also made with Dr. Ocampo prior to the patient leaving the office. Orders: Orders XR knee RT 2V Today M25.569 - Pain in unspecified knee XR knee LT 1V Today M25.569 - Pain in unspecified knee Coding Level of Care Code New Pt Level 3 (66042) Diagnoses Effusion of right knee M25.461 CPT Codes Coding - 29841 Large joint: 97260 - Large joint ([id number])
[2024-08-08 11:59] VITALS: BMI 27.5
--- OUTSIDE RECORDS SUMMARY | 2024-08-08 14:13 | XMS_ITS ---
Care Plan Created on: August 08, 2024 Cleo Juarez : 1965 Sex: Female Author Organization Formerly [facility] Address [address] [place] [address] Care Team Providers Care [employer] Principal Name Role Phone Husam Dey MD Unavailable [phone] Freida Shetty MA Unavailable Shannen Busby PAI GOW DEALER Unavailable [phone] Opal Hidalgo APRN Unavailable Nicholas Washington MD Unavailable Estefany Pagan Unavailable Jocelyn Haque Unavailable Lavern Martinez Unavailable [phone] Nicholas Birch WEBSITE DEVELOPER Unavailable Enrrique Kidd WEBSITE DEVELOPER Unavailable Mick Jain MD Primary Care Provider [phone] Precious Faria Unavailable Dorian Levine MD Unavailable [phone] Xuan Betancourt APRN Unavailable Active Problems * This document contains information received from the source organization and may not represent a complete record from that organization. Problem Noted Date Diagnosed Date Homelessness 07/09/2023 Acute stasis dermatitis 06/28/2023 Severe protein calorie malnu trition aeb 18% wt loss x 7 months, intake <75% of needs >1 month 06/10/2023 Severe recurrent major depre ssion without psychotic features 06/09/2023 Suicidal behavior 06/08/2023 Chronic posttraumatic stress disorder 10/22/2022 Cocaine use disorder, severe, dependence 023 Alcohol use disorder, severe, in sustained remis froylan 10/22/2022 Severe opioid use disorder 10/22/2022 Suicidal ideation 10/07/2022 Generalized anxiety disorder 09/30/2022 Hot flashes 09/30/2022 Legally blind in right eye, as defined in [place] 09/19/2022 Varicose veins 09/19/2022 09/19/2022 High cholesterol 09/19/2022 09/19/2022 Adrenal incidentaloma 10/03/2021 Cardiomyopathy 07/25/2021 Type 2 myocardial infarction 07/23/2021 Noncompliance with medicatio n treatment due to abuse of medication 07/23/2021 Nicotine dependence 07/23/2021 Seizure 07/22/2021 My Safety Plan 03/19/2021 Overview (03/19/2021): Images from the original note were not included. [employer] MY SAFETY PLAN Name: Cleo Juarez Date: 03/19/21 MR#: [id number] The one thing that is most important to me and worth living for is: My children Step 1 - Warning Signs [thoughts, images, mood, situation, behavior] that a crisis may be developin. Gets depressed 2. Anxiety increases 3. Little to no motivation to do things around the house Step 2 - Coping strategies: things I can do to take my mind off of my problems without contacting others [relaxation technique; physical exercise] 1. Walking 2. Art and Music 3. Talking to someone Step 3 - People and social settings that provide distraction 1. Name: Mom Phone: number in phone 2. Name: Padmaja - Best Friend Phone: number in phone 3. Place: My bedroom 4. Place: The porch Step 4 - People whom I can ask for help: 1. Name: Mom Phone: number in phone 2. Name: Relapse prevention program Phone: number in phone 3. Name: Padmaja - Best Friend Phone: number in phone Step 5 - Professionals or agencies I can contact during a crisis 1. Name: Relapse prevention program Phone: number in phone 2. Name: AA Phone: number in phone 3. Name: Jacquie Wilson Additional Resources: [place] infoline 211, Suicide Prevention Lifeline 1-958-822-HPDZ (4177), Text Hello to 514281, 037 Step 6 - Making the environment safe/access to guns: Guns in the home are securely locked away No acces to stockpile medications This tool has been adapted from the [facility] Suicide Academy Safety Plan [facility] Form 525187 R10-18 Pg 1 of 1 Major depressive disorder, r ecurrent severe without psychotic features 05/02/2019 Insomnia due to mental disorder 03/07/2019 Restless legs 03/07/2019 Opioid use disorder, severe, in sustained remiss ion 08/14/2018 Fibromyalgia 07/27/2018 DJD (degenerative joint disease) 07/27/2018 Resolved Problems Problem Noted Date Diagnosed Date Resolved Date Bilateral lower extremity edema 06/28/2023 08/02/2023 Acute venous stasis dermatit is of both lower extremities 06/28/2023 08/02/2023 Alteration in patient safety due to identified suicide risk 06/14/2023 08/02/2023 Overview (06/14/2023): Ml Safety Plan Creation Date: 01/21/22 Last Update Date: 06/14/23 ?? Step 1: Warning signs: Warning Signs If ever I wanted to kill myself. My heart will race I will have bad thoughts ?? Step 2: Internal coping strategies - Things I can do to take my mind off my problems without contacting another person: Strategies Go for a walk. Watch TV Listen to music ?? Step 3: People and social settings that provide distraction: Name Contact Information I have no one. 211 crisis hotline ?? Places Local Park Local Restaurant ?? Step 4: People whom I can ask for help during a crisis: Name Contact Information 211 crisis hotline 988 Suicide Hotline ?? Step 5: Professionals or agencies I can contact during a crisis: Clinician/Agency Name Phone Emergency Contact Dr. Dey [facility] Emergency room 988 Suicide Hotline Local Emergency Department Emergency Department Address Emergency Department Phone [facility] ??Emergency Room [address] [place] [address] ?? Suicide Prevention Lifeline Phone: Call or Text 992 Crisis Text Line: Text HOME to 109010 ?? Step 6: Making the environment safer (plan for lethal means safety): No access to guns ?? Optional: What is most important to me and worth living for?: My family. ?? Ml Safety Plan. Nichol Yancey and Darion Valladares. Used with permission of the authors. Severe protein-calorie malnu trition (HCC) wt loss >10% in 6 months, severe muscle mass depletion temporal region 10/09/2022 10/19/2022 Overview (10/09/2022): Malnutrition Reason: malnutrition in the context of social or environmental circumstances Malnutrition Severity: severe malnutrition Clinical Characteristics: muscle mass loss, weight loss Weight Loss: > 10% in in 6 months Muscle Mass Loss: severe Hypokalemia 07/23/2021 07/24/2021 Cocaine use disorder, severe , in sustained remission 11/08/2019 09/30/2022 Opioid use disorder, severe, in early remission, on maintenance therapy 03/07/20192022 Severe benzodiazepine use disorder 08/14/2018 03/07/2019 Protein calorie malnutrition 07/27/2018 06/10/2023 Overview (07/27/2018): ASPEN criteria: 19% weight loss, depletion of fat (orbital, triceps) and muscle (temporal, scapular) wasting; BMI 16.14 Major depressive disorder, r ecurrent, in remission 07/26/2018 05/02/2019 Additional Health Concerns Active Problems Noted Date Diagnosed Date PMI-Depression 05/02/2019 Note: I am much more depressed. I get worse during the winter months. PMI-Depression 09/11/2021 Goals Goal Patient Goal Type Associated Problems Recent Progress Patient-Stated? Author Alleviate depressed mood and return to previous level of functioning. Care Plan PMI-Depression No Husam Dey MD OVANDO GOAL 1 - Hopeful about the future Care Plan PMI-Depression No Husam Dey MD Note: Pt. will report at least a 1 point increase on the MARS-12 outcome measure item (#1) I am hopeful about the future on the next administration of the measure. Pt. will verbalize a commitment to engage in 1 or more positive activities over the next 3 months (time period) and report progress in the future appointments Alleviate depressive symptoms and return to previous level of effective functioning. Care Plan PMI-Depression No Shannen Busby LCSW MARS GOAL 2 - Make good choices Care Plan PMI-Depression No Shannen Busby LCSW Note: Pt. will report at least a 1 point increase on the MARS-12 outcome measure item (#2) I believe I make good choices in life on the next administration of the measure. Pt. will discuss times when they made healthy life choices or pt. will discuss when they have made unhealthy life choices and identify what they can do differently in future appointments Frequency 3 xs a week Duration 4-5 weeks Modality DDIOP Interventions Care Plan Interventions Intervention Entry Date Outcome Intervention 05/02/2019 Note:Frequency: every 1-3 months. Duration: 3 months. Modality: In person or telehealth medication management, case management, individual and group therapy as needed. Related Goals and Interventions Goal Associated Intervent ions MARS GOAL 1 - Hopeful about the future I ntervention
--- OUTSIDE RECORDS SUMMARY | 2024-08-08 14:13 | XMS_ITS | Clinical Summary ---
Author Organization [facility] Address [address] [place] [address] Care Team Providers Care Undergraduate Internship Name Role Phone Holly Schneider APRN Primary Care Provider [phone] Holly Schneider APRN Unavailable [phone] Allergies Active Allergy Reactions Criticality Noted Date Comments Amoxicillin 08/19/2021 Medications buPROPion HCl ER, XL, (Wellbutrin XL) 150 MG 24 hr tablet 0 2 Active buPROPion HCl ER, XL, (Wellbutrin XL) 300 MG 24 hr tablet 0 2 Active chlorproMAZINE HCl (THORAZINE) 50 MG tablet 0 2 Active Buprenorphine HCl-Naloxone HCl (Suboxone) 8-2 MG per SL film 0 2 Active Topiramate (TOPAMAX) 50 MG tablet 0 2 Active diazePAM (VALIUM) 10 MG tablet 60 0 2 Active FLUoxetine HCl (PROzac) 40 MG capsule TAKE 1 CAPSULE (40 MG TOTAL) BY MOUTH DAILY. 90 0 2 Active FLUoxetine HCl (PROzac) 40 MG capsule TAKE 1 CAPSULE (40 MG TOTAL) BY MOUTH DAILY. 90 0 2 Active Fluoxetine HCl (PROzac) 20 MG capsule 90 0 2 Active Fluoxetine HCl (PROzac) 20 MG capsule 90 0 2 Active Methocarbamol (ROBAXIN) 750 MG tablet 20 0 2 Active Methocarbamol (ROBAXIN) 750 MG tablet 20 0 2 Active Gabapentin (NEURONTIN) 800 MG tablet 270 0 2 Active Gabapentin (NEURONTIN) 800 MG tablet 270 0 2 Active Doxepin HCl (SINEquan) 50 MG capsule TAKE 1 CAPSULE BY MOUTH EVERY DAY NIGHTLY 90 0 2 Active Metoprolol Succinate (TOPROL-XL) 25 MG 24 hr tablet TAKE 1 TABLET BY MOUTH EVERY DAY 90 0 2 Active Nitrofurantoin Monohyd Macro (MACROBID) 100 MG capsule TAKE 1 CAPSULE BY MOUTH TWICE A DAY FOR 7 DAYS 14 0 2 Active Topiramate (TOPAMAX) 100 MG tablet 180 0 2 Active Rosuvastatin Calcium (CRESTOR) 20 MG tablet TAKE 1 TABLET BY MOUTH EVERY DAY 90 1 2 Active Levetiracetam (KEPPRA) 250 MG tablet TAKE 1 TABLET TWICE A DAY#30 ONLY, NEEDS VISIT AND TO SEE NEUROLOGY 30 0 2 Active clonazePAM (KlonoPIN) 0.5 MG tablet 75 0 2 Active hydrOXYzine HCl (ATARAX) 50 MG tablet TAKE 2 TABLETS BY MOUTH 3 TIMES DAILY NEEDED FOR ANXIETY 180 0 3 Active chlorproMAZINE HCl (THORAZINE) 10 MG tablet TAKE 6 TABLETS (60 MG TOTAL) BY MOUTH 4 (FOUR) TIMES A DAY NEEDED FOR SEDATION (ANXIETY). 720 0 3 Active Doxepin HCl (SINEquan) 100 MG capsule TAKE 1 CAPSULE BY MOUTH EVERY DAY NIGHT 90 0 3 Active Gabapentin (NEURONTIN) 400 MG capsule TAKE 2 CAPSULES BY MOUTH 3 TIMES A DAY. 90 0 3 Active Prazosin HCl (MINIPRESS) 1 MG capsule TAKE 1 CAPSULE BY MOUTH 2 TIMES A DAY. 60 0 3 Active Active Problems Problem Noted Date Diagnosed Date Seizures 08/19/2021 NSTEMI, initial episode of care 08/19/2021 Adrenal nodule 08/19/2021 Elevated troponin level 08/19/2021 Resolved Problems Problem Noted Date Diagnosed Date Resolved Date UTI (urinary tract infection) 08/24/2021 09/07/2021 Social History Tobacco Use Types Packs/Day Years Used Date Smoking Tobacco: Never Assessed Comments:Smoking Status:Curr ently using tobacco Comments Unknown Sex and Gender Information Value Date Recorded Sex Assigned at Not on file Legal Sex Female 10:52 PM EDT Gender Identity Not on file Sexual Orientation Not on file Last Filed Vital Signs Vital Sign Reading Time Taken Comments Blood Pressure 122/72 08/19/2021 2:12 PM EDT LUE LUE Pulse 78 08/19/2021 2:12 PM EDT Temperature 36.3 ??C (97.4 ??F) 08/19/2021 2:12 PM ED T Respiratory Rate 16 08/19/2021 2:12 PM EDT Oxygen Saturation 98% 08/19/2021 2:12 PM EDT Inhaled Oxygen Concentration - - Weight 65.3 kg (144 lb 0.1 oz) 08/19/2021 2:12 P M EDT Height 167.6 cm (5' 6 ) 08/19/2021 2:12 PM EDT Body Mass Index 23.24 08/19/2021 2:12 PM EDT Plan of Treatment Health Maintenance Due Date Last Done Comments Hepatitis C Screening 1965 Pap Smear 1981 DTaP/Tdap/Td (1 - Tdap) 11/30/1983 Hep B (1 of 3 - 19+ 3-dose series) 1984 Pneumococcal 50+ years (1 of 2 - PCV) 1984 Mammogram/Breast Imaging 2005 Colon Cancer Screening 2010 Zoster (Shingrix) (1 of 2) 11/30/2015 COVID-19 Vaccine (2023-2 5 season) 2023 Influenza (#1) 2023 Chest Imaging Discontinued 07/22/2021 HPV Vaccine Aged Out No longer eligi ble based on patient's age to complete this topic Hep A Aged Out No longer eligi ble based on patient's age to complete this topic Hib Aged Out No longer eligi ble based on patient's age to complete this topic Meningococcal ACWY Aged Out No longer eligible based on patient's age to complete this topic Procedures Procedure Name Priority Date/Time Associated Diagnosis Comments CT - THORAX W/O CONTRAST THEN W/CONTRAST AND MORE SECTIONS 07/22/2021 12:00 AM EDT from Last 3 Months or Most Recently Relevant to Health Maintenance Results * CT - THORAX W/O CONTRAST THEN W/CONTRAST AND MORE SECTIONS (07/22/2021 12:00 AM EDT) Narrative 07/22/2021 12:00 AM EDT Ordered by an unspecified provider. us Unknown Provider CONTRAST STUDY- OTHER Final Res ult from Last 3 Months or Most Recently Relevant to Health Maintenance Care Teams Undergraduate Internship Relationship Specialty Start Date End Date Holly Schneider APRN [facility] [address] PCP - General 11/23/22 Holly Schneider APR[place] [address] PCP - Backup PCP Family Medicine 05/19/23
--- OUTSIDE RECORDS SUMMARY | 2024-08-08 14:13 | XMS_ITS | Clinical Summary ---
Author Organization [facility] Address [address] [place] [address] Care Team Providers Care Hide Worker Name Role Phone Husam Dey MD Unavailable [phone] Freida Shetty MA Unavailable Shannen Busby HAND CANDY MOLDER Unavailable [phone] Opal Hidalgo APRN Unavailable Nicholas Washington MD Unavailable Estefany Pagan Unavailable Jocelyn Haque Unavailable Lavern Martinez Unavailable [phone] Nicholas Birch FARM EQUIPMENT ASSEMBLER Unavailable Enrrique Kidd FARM EQUIPMENT ASSEMBLER Unavailable Mick Jain MD Primary Care Provider Precious Faria Unavailable Dorian Levine MD Unavailable Xuan Betancourt APRN Unavailable Allergies Active Allergy Reactions Criticality Noted Date Comments Amoxicillin Hives Medium 07/25/2018 Bupropion Other (See Comments) 07/22/2021 Seizure-pt states she can take this med orally and it worked wonderfully. She snorted it and caused seizure so they wont give it to her. Medications * This document contains information received from the source organization and may not represent a complete record from that organization. buprenorphine-n aloxone (SUBOXONE) 8-2 mg per SL filmIndications :Severe recurrent major depression without psychotic features (HCC) Place 1 Film under the tongue 2 times a day. Max Daily Amount: 2 Film 14 Film 08/02/2023 Active chlorproMAZINE (THORAZINE) 25 MG tabletIndicatio ns:Severe recurrent major depression without psychotic features (HCC) Take 1 tablet (25 mg total) by mouth 3 (three) times a day. 90 tablet 08/02/2023 Active escitalopram (LEXAPRO) 20 MG tabletIndicatio ns:Severe recurrent major depression without psychotic features (HCC) Take 1 tablet (20 mg total) by mouth daily. 30 tablet 08/03/2023 Active furosemide (LASIX) 20 MG tabletIndicatio ns:Severe recurrent major depression without psychotic features (HCC) Take 0.5 tablets (10 mg total) by mouth daily. 11 tablet 08/03/2023 Active lidocaine (LIDODERM) 5 % patchIndication s:Severe recurrent major depression without psychotic features (HCC) Place 1 patch on the skin daily. Apply patch and leave on for 12 hours then remove. Patch may remain on skin for 12 hours per day. 30 patch 08/03/2023 Active nicotine (NICODERM CQ) 14 MG/24HR patchIndication s:Severe recurrent major depression without psychotic features (HCC) Place 1 patch on the skin daily. 14 patch 08/03/2023 Active QUEtiapine (SEROquel) 150 mg tabletIndicatio ns:Severe recurrent major depression without psychotic features (HCC) Take 1 tablet (150 mg total) by mouth nightly. 30 tablet 08/02/2023 Active rosuvastatin (CRESTOR) 5 MG tabletIndicatio ns:Severe recurrent major depression without psychotic features (HCC) Take 1 tablet (5 mg total) by mouth daily. 30 tablet 08/03/2023 Active topiramate (TOPAMAX) 25 MG tabletIndicatio ns:Severe recurrent major depression without psychotic features (HCC) Take 1 tablet (25 mg total) by mouth 2 (two) times a day. 60 tablet 08/02/2023 Active buprenorphine-n aloxone (SUBOXONE) 8-2 mg per SL filmIndications :Severe recurrent major depression without psychotic features (HCC) Place 1 Film under the tongue 2 times a day. Max Daily Amount: 2 Film 60 Film 08/06/2023 Active Active Problems Problem Noted Date Diagnosed Date Homelessness 07/09/2023 [...] from the original note were not included. Clickable MY SAFETY PLAN Name: Cleo Juarez Date: 03/19/21 MR#: [id number] The one thing that is most important [...] Resources: [place] infoline 211, Suicide Prevention Lifeline 3-030-824-TALK (1045), Text Hello to 057895, 771 Step 6 - Making the environment safe/access to guns: Guns in the home are securely locked away No acces to stockpile medications This tool has been adapted from the Zero Suicide [facility] Safety Plan [facility] Form 480729 R10-18 Pg 1 of 1 Major depressive [...] Clinician/Agency Name Phone Emergency Contact Dr. Dey [facility] Emergency room 988 Suicide Hotline [facility] Emergency Department Emergency Department Address Emergency Department Phone [facility] ??Emergency Room [address] [place] [address] ?? Suicide Prevention Lifeline Phone: Call or Text 988 Crisis Text Line: Text HOME to 427718 ?? Step 6: Making the environment safer [...] disorder, r ecurrent, in remission 07/26/2018 05/02/2019 Immunizations Immunization Administration Dates Next Due Influenza Inactivated/Split Preservative Free IM 01/29/2022,03/20/2021 Influenza, Quadrivalent (FLU ARIX, AFLURIA, FLULAVAL, FLUZONE) Preservative Free IM 08/06/2023() Influenza, Unspecified 07/10/2008 PPD Test 10/19/2022,08/03/2018 Tdap 03/15/2021 Family History Medical History Relation Name Comments No Known Problems Brother No Known Problems Cousin Drug abuse Father Heart disease Father No Known Problems Maternal Aunt No Known Problems Maternal Grandfather No Known Problems Maternal Grandmother No Known Problems Maternal Uncle Bipolar disorder Mother Heart disease Mother No Known Problems Paternal Aunt No Known Problems Paternal Grandfather No Known Problems Paternal Grandmother No Known Problems Paternal Uncle No Known Problems Sister ADD / ADHD Neg Hx Alcohol abuse Neg Hx Anxiety disorder Neg Hx Dementia Neg Hx Depression Neg Hx OCD Neg Hx Paranoid behavior Neg Hx Schizophrenia Neg Hx Seizures Neg Hx Self-injurious behavior Neg Hx Suicide attempts Neg Hx Suicide completion Neg Hx Relation Name Status Comments Brother Cousin Father Maternal Aunt Maternal Grandfather Maternal Grandmother Maternal Uncle Mother Paternal Aunt Paternal Grandfather Paternal Grandmother Paternal Uncle Sister Social History Tobacco Use Types Packs/Day Years Used Date Smoking Tobacco: Every Day Cigarettes 1 43 Smokeless Tobacco: Never Tobacco Cessation:Ready to Q uit: Not Asked; Counseling Given: Not Answered Alcohol Use Standard Drinks/Week Comments Not Currently 0 (1 standard drink = 0.6 oz pur e alcohol) AUDIT-C Answer Date Recorded Q1: How often do you have a drink containing alcohol? Never 06/09/2023 Q2: How many drinks containi ng alcohol do you have on a typical day when you are drinking? Patient does not drink Q3: How often do you have si x or more drinks on one occasion? Never 06/09/2023 PHQ-2 Answer Date Recorded PHQ-2 Total Score 0 08/06/2023 Comments No Sex and Gender Information Value Date Recorded Sex Assigned at Female 09/17/2022 4:04 PM EDT Legal Sex Female 3:22 PM EDT Gender Identity Female 09/17/2022 4:04 PM EDT Sexual Orientation Heterosexual (straight) 10/07 7:14 PM EDT Last Filed Vital Signs Vital Sign Reading Time Taken Comments Blood Pressure 92/60 08/06/2023 6:00 AM EDT Pulse 78 08/06/2023 6:00 AM EDT Temperature 36.7 ??C (98 ??F) 08/06/2023 6:00 AM EDT Respiratory Rate 16 08/06/2023 6:00 AM EDT Oxygen Saturation 98% 08/06/2023 6:00 AM EDT Inhaled Oxygen Concentration - - Weight 68.9 kg (151 lb 12.8 oz) 08/03/2023 7:30 AM EDT Height 165.1 cm (5' 5 ) 06/09/2023 9:45 AM EST Body Mass Index 25.26 06/09/2023 9:45 AM EST Plan of Treatment Health Maintenance Due Date Last Done Comments Hepatitis B Vaccines (1 of 3 - 19+ 3-dose series) 1984 Pneumococcal Vaccines 50+ (1 of 2 - PCV) 1984 Pap Smear (Ages 21-65) 1986 Mammogram 2005 Colonoscopy 2010 Zoster (Shingles) Vaccine (1 of 2) 11/30/2015 Lung Cancer Screening (LDCT) 07/22/2022 07/22/2021 Influenza Vaccine 11/18/2023 01/29/2022, , 07/10/2008 COVID-19 Vaccine (2023-2 5 season) 2023 05/28/2021, 09/04/2020, 08/07/2020 DTaP/Tdap/Td Vaccines (2 - T d or Tdap) 03/15/2031 03/15/2021 Chronic Controlled Substance User PDMP Review Discontinued 10/19/2022, 11/18/2021, 10/07/2021, Additional history exists HIV Screening Completed 10/21/2022, 09/30/2022 Hepatitis C Virus Screening Completed 10/21/2022, 0 09/30/2022 Chronic Controlled Substance Toxicology Screening Discontinued 11/23/2022, 11/22/2022, 11/14/2022, Additional history exists Goals Goal Patient Goal Type Associated Problems Recent Progress Patient-Stated? Author Alleviate depressed mood and return to previous level of functioning. Care Plan PMI-Depression No Husam Dey MD MARS GOAL 1 - Hopeful about the [...] effective functioning. Care Plan PMI-Depression No Shannen Busby, REGINO MARS GOAL 2 - Make good choices Care Plan PMI-Depression No Shannen Busby, REGINO Note: Pt. will report at least a [...] a week Duration 4-5 weeks Modality DDIOP Procedures Procedure Name Priority Date/Time Associated Diagnosis Comments DRUG TOX MONITORING 9 W/CONF, URINE Routine 11/23/2022 10:33 AM EDT Cocaine use disorder, severe, dependence (HCC) HIV 1/2 AG/AB CMIA REFLEX TO CONFIRMATION Routine 10/21/2022 11:29 AM EDT Severe recurrent major depression without psychotic features (HCC) HEPATITIS PANEL, ACUTE Routine 10/21/2022 11:29 AM EDT Severe recurrent major depression without psychotic features (HCC) CTA CHEST FOR P.E. Routine 07/22/2021 10 :49 PM EDT from Last 3 Months or Most Recently Relevant to Health Maintenance Results * (ABNORMAL) Drug Tox Monitoring 9 w/Conf, Urine (Q [id number]) (11/23/2022 10:33 AM EDT) Amphetamines NEGATIVE <500 ng/mL [facility] Barbiturates, Urine NEGATIVE <300 ng/mL [facility] Benzodiazepines Urine NEGATIVE <100 ng/mL [facility] Buprenorphine, Urine POSITIVE(A) <5 ng/mL [facility] BUPRENORPHINE, [place], [place] [id number] 75(H) <5 ng/mL [facility] Comment:See Note 1 Norbuprenorphine, Urine, mCnc 341(H) <5 ng/mL [facility] Comment:See Note 1 Cocaine, Semi-Quant NEGATIVE <150 ng/mL [facility] Heroin Metabolite NEGATIVE <10 ng/mL [facility] Marijuana Metabolite, 20 NEGATIVE <20 ng/mL [facility] MDMA/MDA NEGATIVE <500 ng/mL [facility] Methadone NEGATIVE <100 ng/mL [facility] Opiates Ur Ql NEGATIVE <100 ng/mL [facility] Oxycodone NEGATIVE <100 ng/mL [facility] Phencyclidine NEGATIVE <25 ng/mL [facility] Comment [facility] Comment: See Note 2 Note 1 This test was developed and its analytical performance characteristics have been determined by [email or web address]. It has not been cleared or approved by the FDA. This assay has been validated pursuant to the CLIA regulations and is used for clinical purposes. Note 2 This drug testing is for medical treatment only. ?? Analysis was performed as non-forensic testing and these results should be used only by healthcare providers to render diagnosis or treatment, or to monitor progress of medical conditions. For assistance with interpreting these drug results, please contact a [email or web address] Toxicology Specialist: [phone] ( ), M-F, 8am-6pm EST. Urine Urine specimen / Unknown 11/23/2022 10:33 AM EDT 11/25/2022 7:50 AM EDT us Dorian Levine MD URINE ORDERABLES Final Resu lt [employer] [address] [place] [id number] * HIV 1/2 Ag/Ab CMIA Reflex to Confirmation (10/21/2022 11:29 AM EDT) HIV 1/2 Ag/Ab CMIA Nonreactive Nonreactive 10/22/2022 11:14 AM EDT [facility] Comment: Results show no evidence of infection by HIV 1/2. If clinically indicated, repeat CMIA or test by nucleic acid amplification. HIV 1/2 Antigen/Antibody CMIA reflex to confirmation AND HIV-1 RNA viral load recommended in patients who are taking or have recently taken PrEP. Blood specimen (specimen) Serum specimen / Unknown 10/21/2022 11:29 AM EDT 10/21/2022 11:40 AM EDT [employer] LAB BLOOD ORDERABLES Final Resul t HOSPITAL LAB See Below [facility] [address] [place] [address] * Hepatitis Panel, Acute (10/21/2022 11:29 AM EDT) Hepatitis A Antibody IgM Nonreactive Nonreactive S/CO 10/22/2022 11:14 AM EDT [facility] Hepatitis B Core Antibody IgM Nonreactive Nonreactive 10/22/2022 11:14 AM EDT [facility] Hepatitis B Surface Ag Screen Nonreactive Nonreactive 10/22/2022 11:14 AM EDT [facility] Hepatitis C Antibody 0.16 0.00 - 0.79 S/CO ratio 10/22/2022 11:14 AM EDT [facility] Hepatitis C Antibody Interpretation Nonreactive Nonreactive 10/22/2022 11:14 AM EDT [facility] Hepatitis Interpretation: Results inconsistent with acute Hepatitis A, B or C Virus infection. 10/22/2022 11:14 AM EDT [facility] Blood specimen (specimen) Serum specimen / Unknown 10/21/2022 11:29 AM EDT 10/21/2022 11:40 AM EDT Lopez Kye DO LAB BLOOD ORDERABLES Final Resul t HOSPITAL LAB See Below [facility] [address] [place] [address] * CTA Chest for P.E. (07/22/2021 10:49 PM EDT) Anatomical Region Laterality Modality Chest Computed Tomogra phy 07/22/2021 11:0 0 PM EDT Impressions 07/22/2021 11:[address] evidence acute central pulmonary embolism. Multifocal patchy areas of groundglass opacities. Question Covid pneumonia versus neoplastic. Strongly recommend clinical correlation and follow-up to improvement. New 1.6 cm left adrenal nodule. Recommend adrenal MR or adrenal washout CT for further evaluation. Narrative 07/22/2021 11:08 PM EDT CTA chest [id number] Indication: SOB, tachycardia, elevate troponin. Assess for PE Comparison: No prior TECHNIQUE: Non contrast math and physics instructor images were obtained. Following the uneventful administration of 80 mL omnipaque 350 non-ionic intravenous contrast, contiguous thin slice helical axial images were obtained through the chest in the appropriate phase to maximize pulmonary arterial enhancement. Thin section axial reconstructions and 3D MIP postprocessing were done on dependent workstation. This CT scan was done with automatic exposure control and mA and KV was adjusted to obtain quality images according to patient size. Findings: Chest CT with contrast. No CT evidence acute central pulmonary embolism. Scattered subcentimeter mediastinal nodes. No hilar or enlarged axillary adenopathy. No pericardial effusion. Included right adrenal unremarkable. New 1.6 cm left adrenal nodule. Recommend adrenal MR or washout CT for further evaluation. Trace bibasal pleural effusions. Multifocal patchy areas of groundglass opacities. Question Covid pneumonia versus neoplastic. Strongly recommend clinical correlation and follow-up to improvement. Procedure Note Gm Pearce MD - 07/22/2021 CTA chest [id number] Indication: SOB, tachycardia, elevate troponin. Assess for PE Comparison: No prior TECHNIQUE: Non contrast math and physics instructor images were obtained. Following theuneventful administration of 80 mL omnipaque 350 non-ionic intravenouscontrast, contiguous thin slice helical axial images were obtained throughthe chest in the appropriate phase to maximize pulmonary arterial enhancement. Thin section axialreconstructions and 3D MIP postprocessing were done on dependentworkstation. This CT scan was done with automatic exposure control and mA and KV wasadjusted to obtain quality images according to patient size. Findings: Chest CT with contrast. No CT evidence acute central pulmonary embolism. Scattered subcentimeter mediastinal nodes. No hilar or enlarged axillary adenopathy. No pericardial effusion. Included right adrenal unremarkable. New 1.6 cm left adrenal nodule. Recommend adrenal MR or washout CT forfurther evaluation. Trace bibasal pleural effusions. Multifocal patchy areas of groundglass opacities. Question Covid pneumoniaversus neoplastic. Strongly recommend clinical correlation and follow-upto improvement. IMPRESSION: No CT evidence acute central pulmonary embolism. Multifocal patchy areas of groundglass opacities. Question Covid pneumoniaversus neoplastic. Strongly recommend clinical correlation and follow-upto improvement. New 1.6 cm left adrenal nodule. Recommend adrenal MR or adrenal washout CTfor further evaluation. Lelo Thomas MD IM CT ORDERABLES Final Result from Last 3 Months or Most Recently Relevant to Health Maintenance Additional Health Concerns Active Problems Noted Date Diagnosed Date PMI-Depression 05/02/2019 Note: I am much more depressed. I get worse during the winter months. PMI-Depression 09/11/2021 Insurance [facility] Advance Directives * Full Code (Latest Code Status on File) Date Activated Date Inactivated Comments 06/09/2023 10:22 AM Question Answer Comments Decision Thoroughly Discussed with: Unable to Di scuss * Full Code Date Activated Date Inactivated Comments 11/10/2022 3:08 PM 12/12/2022 7:16 AM * Full Code Date Activated Date Inactivated Comments 10/08/2022 10:05 AM 10/22/2022 4:43 PM * Full Code Date Activated Date Inactivated Comments 01/22/2022 11:55 AM 10/07/2022 6:54 PM * Full Code Date Activated Date Inactivated Comments 07/22/2021 4:52 PM 01/21/2022 2:43 PM Question Answer Comments Decision Thoroughly Discussed with: Patient Care Teams Hide Worker Relationship Specialty Start Date End Date Mick Jain MD [address] [employer] [address] [address] PCP - General Internal Medicine 09/18/22 Husam Dey MD Physician Psychiatry, General 03/07/19 Freida Shetty MA [address] [place] [id number] Liquid Floor And Wall Applier 04/29/21 Shannen Busby LCSW [address] [place] [address] Nuclear Fuels Reclamation Engineer Clinical Social Work 08/28/21 Opal Hidalgo APRN [address] [place] [phone] Nurse Practitioner Psychiatry, General 09/12/21 Nicholas Washington MD [address] [place] [address] [phone] Psychiatry, General 09/23/21 Estefany Pagan [address] [place] [address] [phone] Clinician Social Work 01/26/22 Jocelyn Haque [address] [place] [address] [phone] Clinician Social Work 03/20/22 Martinez, Lavern Jones [address] [place] [address] [phone] Clinician Social Work 03/31/22 Nicholas Birch LMFT [address] [place] [address] [phone] Nuclear Fuels Reclamation Engineer Clinical Social Work 05/01/22 Enrrique Kidd LMFT [address] [place] [address] [phone] Nuclear Fuels Reclamation Engineer Clinical Social Work 06/16/22 Precious Faria [address] [place] [address] [phone] Clinician Social Work 10/07/22 Dorian Levine MD [address] [place] [phone] Psychiatry, Addiction 11/02/22 Xuan Betancourt APRN [address] [place] [phone] Nurse Practitioner Psychiatry, General 11/10/22
--- OUTSIDE RECORDS SUMMARY | 2024-08-08 14:13 | XMS_ITS | Encounter Summary ---
Author Organization [facility] Address [address] [place] [id number] Care Team Providers Care Internet Media Planner Name Role Phone Mick Jain MD Primary Care Provider [phone] Reason for Referral * Imaging (Emergency) - Closed Specialty Diagnoses / Procedures Referred By Lisbeth carlin Referred To Contact Radiology Diagnoses Normal screening chest x-ray for tuberculosis Procedures XR CHEST 2 VIEWS Dorian Levine MD [address] [place] [address] Phone: tel: fax: [facility] Radiology - Central Scheduling [place] Phone: tel: fax: Referral ID Status Reason Start Date Expiration Date V isits Requested Visits Authorized [id number] Closed Perform Procedure 11/04/2022 11/04/2023 1 1 Encounter Details Date Type Department Care Team (Latest Contact Info) Description 11/04/2022 Ancillary Orders [facility] Radiology, Outpatient Center (Diag Rad) [address] [facility] [place] [address] Dorian Levine MD [address] [place] [address] Normal screening chest x-ray for tuberculosis Social History Tobacco Use Types Packs/Day Years Used Date Smoking Tobacco: Never Assessed Comments Unknown Sex and Gender Information Value Date Recorded Sex Assigned at Not on file Legal Sex Female 10:14 AM EDT Gender Identity Not on file Sexual Orientation Not on file documented as of this encounter Plan of Treatment Not on file documented as of this encounter Results * XR CHEST 2 VIEWS (11/04/2022 10:41 AM EDT) Anatomical Region Laterality Modality Computed Radiogr aphy 11/04/2022 10:4 3 AM EDT Impressions 11/04/2022 10:44 AM EDT No acute cardiopulmonary process. Narrative 11/04/2022 10:44 AM EDT PROCEDURE: ??XR CHEST 2 VIEWS CLINICAL INDICATION: ??Normal screening chest x-ray for tuberculosis, ///pt states r/o TB. Current smoker x42 years smoked 3/4 ppd. COMPARISON: None. FINDINGS: There is no focal consolidation, pleural effusion, vascular congestion, or pneumothorax. The heart is normal in size. Procedure Note Enrrique Hardy MD - 11/04/2022 PROCEDURE: XR CHEST 2 VIEWS CLINICAL INDICATION: Normal screening chest x-ray for tuberculosis, ///ptstates r/o TB. Current smoker x42 years smoked 3/4 ppd. COMPARISON: None. FINDINGS: There is no focal consolidation, pleural effusion, vascular congestion, orpneumothorax. The heart is normal in size. IMPRESSION: No acute cardiopulmonary process. Dorian Levine MD IMG XR PROCEDURES Final Res ult documented in this encounter Visit Diagnoses Diagnosis Normal screening chest x-ray for tuberculosis Normal screening chest x-ray for tuberculosis documented in this encounter Care Teams Internet Media Planner Relationship Specialty Start Date End Date Mick Jain MD [address] [place] [address] PCP - General Family Medicine 11/04/22 documented as of this encounter
--- OUTSIDE RECORDS SUMMARY | 2024-08-08 14:13 | XMS_ITS | Encounter Summary ---
Author Organization [facility] Address [address] [place] [address] Care Team Providers Care Stainless Steel Finisher Name Role Phone Malou Herrera Unavailable [phone] Husam Dey MD Unavailable [phone] Deisi Judd GROUP MANAGING DIRECTOR Unavailable Danyelle Isaac GROUP MANAGING DIRECTOR Unavailable Amos Singh MA Unavailable Pcp, No Primary Care Provider Unavailabl e Rosa Elena Carranza DO Primary Care Provider Freida Shetty MA Unavailable Unknown Primary Care Provider [phone] Pcp, No Primary Care Provider Unavailabl Shannen John GROUP MANAGING DIRECTOR Unavailable Opal Hidalgo APRN Unavailable Nicholas Washington MD Unavailable Estefany Pagan Unavailable Jocelyn Haque Unavailable Lavern Martinez Unavailable [phone] Nicholas Birch MEDICAL SURGERY NURSE Unavailable [phone] Enrrique Kidd MEDICAL SURGERY NURSE Unavailable Mick Jain MD Primary Care Provider [phone] Precious Faria Unavailable Dorian Levine MD Unavailable Xuan Betancourt APRN Unavailable [phone] Encounter Details Date Type Department Care Team (Late st Contact Info) Description 03/14/2021 Lab Requisition [facility] [address] [facility], [place] [address] Zully Martinez, DO [address] [place], [place] [id number] Encounter for laboratory testing for COVID-19 virus Social History Tobacco Use Types Packs/Day Years Used Date Smoking Tobacco: Every Day Smokeless Tobacco: Never Alcohol Use Standard Drinks/Week Comments Not Currently 0 (1 standard drink = 0.6 oz pur e alcohol) Comments No Sex and Gender Information Value Date Recorded Sex Assigned at Female 09/17/2022 4:04 PM EDT Legal Sex Female 3:22 PM EDT Gender Identity Female 09/17/2022 4:04 PM EDT Sexual Orientation Heterosexual (straight) 10/07 7:14 PM EDT COVID-19 Exposure Response Date Recorded In the last month, have you been in contact with someone who was confirmed or suspected to have Coronavirus / COVID-19? No / Unsure 03/15/2021 12:48 AM EST documented as of this encounter Plan of Treatment Not on file documented as of this encounter Goals Goal Patient Goal Type Associated Problems [...] and report progress in the future appointments documented as of this encounter Procedures Procedure Name Priority Date/Time Associated Diagnosis Comments COVID-19 RT-PCR ([facility]) Routine 03/14/2021 5:51 AM EST Encounter for laboratory testing for COVID-19 virus [ICD-10-CM] documented in this encounter Results * COVID-19 RT-PCR ([facility]) (03/14/2021 5:51 AM EST) COVID-19 RT-PCR SARS-CoV-2 Not Detected Not Detected 03/17/2021 7:31 PM EST [facility] Comment: ADDITIONAL INFORMATION The [employer] COVID-19 RT-PCR Assay is a Real-Time Reverse Rda Polymerase Chain Reaction (ceramic engineer-PCR) for the in vitro qualitative detection of three SARS-CoV-2 target sequences unique to the coronavirus disease 2019 (COVID-19). This is an Emergency Use Authorization (EUA) in vitro diagnostic (IVD) test that has been modified to include the GreenWatt automated liquid handler. Its analytical performance characteristics have been determined by the molder and verified by [facility] in a manner consistent with CLIA requirements. This test may be used for clinical purposes and should not be regarded as purely investigational or for research use only. This laboratory is certified under the Clinical Laboratory Improvement Amendments of 1988 (CLIA-88) as qualified to perform high complexity clinical testing. Reference interval for this testing is SARS-CoV-2 Not Detected . Fact sheets for this Emergency Use Authorization assay can be found at the following links: For Healthcare Providers: https://www.fda.gov/media/502622/download For Patients: https://www.fda.gov/media/987038/download TEST INTERPRETATION Data analysis and interpretation is performed using the [employer] COVID-19 Interpretive Software. SARS-CoV-2 Not Detected: negative for SARS-CoV-2, recommend testing for other viruses if clinically indicated. Positive SARS-CoV-2: positive for SARS-CoV-2. SARS-CoV-2 Inconclusive: the test results were inconclusive two consecutive times from separate nucleic acid extractions. Additional testing should be performed if clinically indicated. Failed: testing failed two consecutive times from separate nucleic acid extractions. Additional specimen should be collected and submitted for testing. The cycle threshold (Ct) value for each COVID target is included for positive specimens. As per the [employer] COVID-19 Combo Kit EUA documentation, each COVID target with a Ct value of <=37 is called Detected . Please note: The [employer] COVID-19 RT-PCR Assay is a qualitative test, and as such the Ct value is interpreted as positive or negative but cannot be used to determine how much virus is present in an individual patient specimen. Ct values should not be used to determine a patient's viral load, how infectious a person may be, or when a person can be released from isolation or quarantine. For more information please refer to: https://www.cdc.gov/coronavirus/2019-ncov/lab/faqs.html#Zwvphzehgumq-Atjxfbz-qe- Diagn ostic-Tests TEST LIMITATIONS Positive results are indicative of the presence of SARS-CoV-2 RNA; clinical correlation with patient history and other diagnostic information is necessary to determine patient infection status. Positive results do not rule out bacterial infection or co-infection with other viruses. The agent detected may not be the definite cause of disease. Negative results do not exclude SARS-CoV-2 infection and should not be used as the sole basis for patient management decisions. Negative results must be combined with clinical observations, patient history, and epidemiological information. Improper sample collection, transport or storage may impede the ability of the assay to detect target sequences. Inconclusive specimens are not repeated, and recollection and submission of a new sample is recommended. The TaqPath COVID-19 test is for the qualitative detection of nucleic acid from SARS-CoV-2 in upper respiratory specimens (such as nasopharyngeal, oropharyngeal, nasal, and mid-turbinate swabs, and nasopharyngeal aspirate), bronchoalveolar lavage (BAL) and saliva specimens from individuals suspected of COVID-19 by their healthcare provider. The limit of detection for the assay was determined to be 250 viral RNA copies/mL for nasal swabs and 500 viral RNA copies/mL for saliva specimens. Other specimen types may be needed for further validation before testing on this system. For further details refer to the [employer] TaqPath COVID-19 Combo Kit EUA submission (https://www.fda.gov/media/611798/download). ----- Test performed by [facility], [address] [place] [address] CLIA# [id number] ? Andrea Dee M.D., Ph.D., [facility] Clinical Solution Professional Microbiology Nasopharyngeal swab / Unknown 03/14/2021 5:51 AM EST 03/14/2021 5:51 AM EST Narrative [facility] - 03/17/2021 7:31 PM EST Performed at [facility], [address] [place] [address], [place] Lic 0695, CLIA [id number] Zully Martinez DO MICROBIOLOGY - GENERAL OR DERABLES Final Result [facility] [address] [facility] [place] [address] documented in this encounter Visit Diagnoses Diagnosis Encounter for laboratory testing for COVID-19 virus documented in this encounter Additional Health Concerns Active Problems Noted Date Diagnosed Date PMI-Depression 05/02/2019 Note: I am much more depressed. I get worse during the winter months. Infection Onset Date Last Indicated Resolved Time R/O Covid - Exposure 01/26/2022 01/26/2022 022 11:43 PM EDT documented as of this encounter Care Teams Stainless Steel Finisher Relationship Specialty Start Date End Date Pcp, No PCP - General General Medicine 03/07/21 03/18/21 Rosa Elena Carranza DO [address] [facility] [address] [place] [phone] PCP - General 03/19/21 07/09/21 Unknown Unknow Provider Address PCP - General 07/10/21 07/21/21 Pcp, No PCP - General General Medicine 07/22/21 09/17/22 Mick Jain MD [address] [place] [address] PCP - General Internal Medicine 09/18/22 Malou Herrera BS [address] [place] [address] Clinician Social Work 03/07/19 03/18/21 Husam Dey MD [address] [place] [address] Physician Psychiatry, General 03/07/19 Deisi Judd, [facility] [address] [place] [address] Industrial Garage Servicer Clinical Social Work 06/27/19 03/18/21 Danyelle Isaac [facility] [address] [place] [address] Industrial Garage Servicer Clinical Social Work 11/08/19 03/18/21 Amos Singh MA [address] [place] [address] Forensic Computer Examiner 11/05/20 03/18/21 Freida Shetty MA [address] [place] [address] Forensic Computer Examiner 04/29/21 Shannen Busby [facility] Unknow Provider Address Industrial Garage Servicer Clinical Social Work 08/28/21 Opal Hidalgo APRN [address] [place] [address] Nurse Practitioner Psychiatry, General 09/12/21 Nicholas Washington MD [address] [place] [address] [id number] Psychiatry, General 09/23/21 Estefany Pagan [address] [place] [address] Clinician Social Work 01/26/22 Jocelyn Haque [address] [place] [address] [phone] Clinician Social Work 03/20/22 Lavern Martinez [address] [place] [address] [phone] Clinician Social Work 03/31/22 Nicholas Birch [facility] [address] [place] [address] [phone] Industrial Garage Servicer Clinical Social Work 05/01/22 Enrrique Kidd [facility] [address] [place] [address] [phone] Industrial Garage Servicer Clinical Social Work 06/16/22 Precious Faria [address] [place] [address] [phone] Clinician Social Work 10/07/22 Dorian Levine MD [address] [place] [address] [id number] Psychiatry, Addiction 11/02/22 Xuan Betancourt APRN [address] [place] [address] [phone] Nurse Practitioner Psychiatry, General 11/10/22 documented as of this encounter
--- OUTSIDE RECORDS SUMMARY | 2024-08-08 14:13 | XMS_ITS | Clinical Summary ---
Author Organization [facility] Address [address] [place] [address] Care Team Providers Care Human Resources Team Member Name Role Phone Mick Jain MD Primary Care Provider Social History Tobacco Use Types Packs/Day Years Used Date Smoking Tobacco: Never Assessed Comments Unknown Sex and Gender Information Value Date Recorded Sex Assigned at Not on file Legal Sex Female 10:14 AM EDT Gender Identity Not on file Sexual Orientation Not on file Plan of Treatment Health Maintenance Due Date Last Done Comments CT Colonography 1965 Colonoscopy 1965 Colorectal Cancer Screening 1965 FIT-DNA 1965 FIT 1965 FOBT 1965 Hepatitis C Screening 1965 Mammogram 1965 Sigmoidoscopy 1965 Annual Physical Exam 11/30/1983 Tdap and Td Vaccines Adult 1984 Pap Smear 1986 Cervical Cancer Screening 11/30/1995 HPV/Cotest 11/30/1995 Pneumococcal Vaccine: 50+ Ye ars (1 of 1 - PCV) 11/30/2015 Zoster Vaccines (1 of 2) 11/30/2015 COVID-19 Vaccine (2023-2 5 season) 2023 Influenza Vaccine (Season Ended) 2024 HIB Vaccines Aged Out No longer eligi ble based on patient's age to complete this topic HPV Vaccines Aged Out No longer eligi ble based on patient's age to complete this topic Hepatitis A Vaccines Aged Out No long er eligible based on patient's age to complete this topic IPV Vaccines Aged Out No longer eligi ble based on patient's age to complete this topic Meningococcal Vaccine Aged Out No floresita elizabeth eligible based on patient's age to complete this topic RSV <20 Months Aged Out No longer ava gible based on patient's age to complete this topic Insurance Care Teams Human Resources Team Member Relationship Specialty Start Date End Date Mick Jain MD [address] [place] [address] PCP - General Family Medicine 11/04/22
--- OUTSIDE RECORDS SUMMARY | 2024-08-08 14:13 | XMS_ITS | Encounter Summary ---
Author Organization [facility] Address [address] [place] [address] Care Team Providers Care Heating And Ventilating Tender Name Role Phone Husam Dey MD Unavailable [phone] Freida Shetty MA Unavailable Pcp, No Primary Care Provider UnavailShannen Shell LINOTYPE MACHINIST Unavailable [phone] Opal Hidalgo APRN Unavailable Nicholas Washington MD Unavailable Estefany Pagan Unavailable Jocelyn Haque Unavailable Lavern Martinez Unavailable [phone] Nicholas Birch RUBBER AND POUNDER Unavailable Enrrique Kidd RUBBER AND POUNDER Unavailable Mick Jain MD Primary Care Provider Precious Faria Unavailable Dorian Levine MD Unavailable Xuan Betancourt SALES REPRESENTATIVE TRAINEE Unavailable Encounter Details Date Type Department Care Team (Late st Contact Info) Description 09/03/2021 Scanned Document [facility] [place] [facility] [address] [place] [phone] Jose Lama PA [address], [place] [phone] Social History Tobacco Use Types Packs/Day Years Used Date Smoking Tobacco: Every Day Cigarettes Smokeless Tobacco: Never Comments:5 cigs daily Alcohol Use Standard Drinks/Week Comments Not Currently 0 (1 standard drink = 0.6 oz pur e alcohol) Comments No Sex and Gender Information Value Date Recorded Sex Assigned at Female 09/17/2022 4:04 PM EDT Legal Sex Female 3:22 PM EDT Gender Identity Female 09/17/2022 4:04 PM EDT Sexual Orientation Heterosexual (straight) 10/07 7:14 PM EDT COVID-19 Exposure Response Date Recorded In the last 10 days, have yo u been in contact with someone who was confirmed or suspected to have Coronavirus/COVID-19? No / Unsure 09/04/2021 12:34 PM EDT documented as of this encounter Plan of [...] future appointments documented as of this encounter Visit Diagnoses Not on filedocumented in this encounter Additional Health Concerns Active Problems Noted Date Diagnosed Date PMI-Depression 05/02/2019 Note: I am much more depressed. I get worse during the winter months. Infection Onset Date Last Indicated Resolved Time R/O Covid - Exposure 01/26/2022 01/26/2022 022 11:43 PM EDT documented as of this encounter Care Teams Heating And Ventilating Tender Relationship Specialty Start Date End Date Pcp, No PCP - General General Medicine 07/22/21 09/17/22 Mick Jain MD [address] [place] [id number] PCP - General Internal Medicine 09/18/22 Husam Dey MD Physician Psychiatry, General 03/07/19 Freida Shetty MA [address] [place] [address] Mission Assessment Specialist 04/29/21 Shannen Busby LCSW Winch Derrick Operator Clinical Social Work 08/28/21 Opal Hidalgo APRN [address] [place] [phone] Nurse Practitioner Psychiatry, General 09/12/21 Nicholas Washington MD [address] [place] [address] Psychiatry, General 09/23/21 Estefany Pagan [address] [place] [address] Clinician Social Work 01/26/22 Jocelyn Haque [address] [place] [id number] Clinician Social Work 03/20/22 Lavern Martinez [address] [place] [address] Clinician Social Work 03/31/22 Nicholas Birch LMFT [address] [place] [phone] Winch Derrick Operator Clinical Social Work 05/01/22 Enrrique Kidd LMFT [address] [place] [address] [phone] Winch Derrick Operator Clinical Social Work 06/16/22 Precious Faria [address] [place], [place] [phone] Clinician Social Work 10/07/22 Dorian Levine MD [address] [place] [phone] Psychiatry, Addiction 11/02/22 Xuan Betancourt APRN [address] [place] [address] [phone] Nurse Practitioner Psychiatry, General 11/10/22 documented as of this encounter
== END 2024-08-08 12:26 | disposition home or self-care (01) ==
LOC: HO.HOS 11:44
PROVIDERS: Visit Provider Physician Assistant
DX: M25.461 Effusion, right knee (principal)
CPT/HCPCS: 20610; 99203

== ENCOUNTER → 2024-08-08 11:45 | Outpatient (BNV) | payer OTHER, SELFPAY | PROVIDERS: Visit Provider Radiology Diagnostic Radiology | DX: M25.561 Pain in right knee (principal) | CPT/HCPCS: 73560 ==

== ENCOUNTER 2025-02-08 19:43 | Emergency (ER) | payer OTHER, SELFPAY ==
[2025-02-08 19:52] VITALS: BP 138/70; PULSE 70; RESP 16; TEMP 36.9; O2SAT 98
[2025-02-08 19:53] VITALS: BP 138/70; BP 142/82; PULSE 70; PULSE 84; RESP 16; TEMP 36.9; O2SAT 98; BMI 26.6
--- NOTE | 2025-02-08 20:12 | ED.GENADULT ---
HPI - General Adult General Chief complaint: General Medical Stated complaint: suboxone withdrawal x2d vomiting, abd pain Time Seen by Provider: 02/08/25 20:10 Source: patient Mode of arrival: EMS Limitations: no limitations History of Present Illness ED Provider: Migue LAROSE HPI narrative: Patient is a 59-year-old female presenting to the ED for evaluation of Suboxone withdrawal. The patient reports she was recently discharged from [facility], reports she has been without her Suboxone since yesterday evening. Patient reports she takes 2 8 mg films in the morning and 1 8 mg film in the evening. Patient reports she contacted her pharmacy and they should be able to fill it tomorrow. Related Data Previous Rx's ?Medication ?Instructions ?Recorded acetaminophen 325 mg tablet 650 mg (2 x 325 mg) PO Q6H PRN 07/12/24 Headache/Pain, Scale 1-10 #240 tabs atorvastatin 10 mg tablet 10 mg PO DAILY #30 tabs 07/12/24 buprenorphine 8 mg-naloxone 2 mg 1 film sublingual DAILY@1600 #2 ea 07/12/24 sublingual film (Suboxone) buprenorphine 8 mg-naloxone 2 mg 2 film sublingual DAILY@0800 #4 ea 07/12/24 sublingual film (Suboxone) chlorpromazine 25 mg tablet 50 mg (2 x 25 mg) PO TID #90 tabs 07/12/24 clonazepam 0.5 mg tablet 0.5 mg PO BID PRN 07/12/24 Anxiety/Restlessness #60 tabs duloxetine 30 mg capsule,delayed 30 mg PO BID #60 caps 07/12/24 release furosemide 20 mg tablet 20 mg PO DAILY #30 tabs 07/12/24 lidocaine 4 % topical patch 1 patch transdermal DAILY PRN 07/12/24 (Lidocaine Pain Relief) Pain, Mild (Pain Scale 1-3) #30 ea mirtazapine 15 mg tablet 15 mg PO BEDTIME #30 tabs 07/12/24 nicotine (polacrilex) 4 mg buccal 4 mg buccal Q2H PRN Nicotine 07/12/24 lozenge Cravings #100 ea nicotine 14 mg/24 hr daily 14 mg transdermal DAILY #30 ea 07/12/24 transdermal patch oxcarbazepine 150 mg tablet 150 mg PO TID #90 tabs 07/12/24 prazosin 1 mg capsule 2 mg PO BEDTIME #60 caps 07/12/24 propranolol 20 mg tablet 20 mg PO TID #90 tabs 07/12/24 ibuprofen 400 mg tablet 400 mg PO Q6H PRN pain #14 tabs 07/30/24 morphine 15 mg immediate release 15 mg PO Q6H PRN pain #16 tabs 07/30/24 tablet chlorpromazine 50 mg tablet 50 mg PO TID #42 tabs 08/03/24 clonazepam 0.5 mg tablet (Klonopin) 0.5 mg PO BID PRN anxiety #28 tabs 08/03/24 duloxetine 30 mg capsule,delayed 30 mg PO BID #28 caps 08/03/24 release (Cymbalta) prazosin 2 mg capsule 2 mg PO BEDTIME #30 caps 08/04/24 Allergies Allergy/AdvReac Type Severity Reaction Status Date / Time amoxicillin Allergy Hives Verified 02/08/25 19:56 Review of Systems Review of Systems: Yes all other systems are reviewed and are negative PMFSH Past Medical History Medical History (Updated 02/08/25 @ 20:17 by Migue Vazquez PA-C) Polysubstance use disorder Opioid use disorder, moderate, in early remission, on maintenance therapy, dependence Social History Social History (Updated 08/08/24 @ 11:59 by Camden Muniz) Household Members: None Housing: Homeless Do you presently have visiting nurse or other home services: No Patient Tobacco Use Status: Current everyday Tobacco user Do you have a plan to hurt others: No Plan service: No Current occupational status: unemployed Sexual orientation: Unable to collect Physical Exam ED Vital Signs: Vital Signs - 24 hr 02/08/25 19:52 02/08/25 19:53 Temperature 98.4 F 98.4 F Pulse Rate 70 70 Respiratory Rate 16 16 Blood Pressure 138/70 138/70 Pulse Oximetry 98 98 Oxygen Delivery Method Room Air Room Air BMI result Body Mass Index 26.6 CONSTITUTIONAL: The patient appears non-toxic, well nourished and in no acute distress. Vital signs as documented. HEAD: Atraumatic, normocephalic. EYES: EOMs grossly intact, pupils equal, conjunctiva clear, no exudate. ENT: Nares patent, no discharge. Airway patent, no audible stridor, visible mucosa is pink and moist without noted lesions. NECK: trachea is midline, no obvious masses or gross abnormalities. CHEST: Symmetric movement, normal appearance. LUNGS: Non-labored work of breathing. CARDIAC: No evidence of hypoperfusion. ABDOMEN: Nondistended, no obvious injury. : Deferred. EXTREMITIES: Moves all extremities spontaneously without reported pain. No obvious injury or deformity noted. NEURO: Alert and oriented x3, CN II-XII appear grossly intact. Cerebellar Functioning grossly intact. Speech clear and appropriate. SKIN: Warm, dry, color appropriate. No rashes or lesions noted. Medical Decision Making Medical Decision Making MDM Narrative: 8:12 PM 02/08/2025 (Laura LAROSE): Patient is a 59-year-old female presenting to the ED for evaluation of Suboxone withdrawal. The patient reports she was recently discharged from [facility], reports she has been without her Suboxone since yesterday evening. Patient reports she takes 2 8 mg films in the morning and 1 8 mg film in the evening. Patient reports she contacted her pharmacy and they should be able to fill it tomorrow. Vital signs stable, patient appears in no acute distress. The patient will be treated with Suboxone and discharged to follow up with the pharmacy tomorrow morning. Admission/Observation Consideration of admission/observation: Escalation of care including admission/observation considered Discharge Plan Discharge Clinical Impression: Opioid dependence Patient Disposition: Home, Self-Care Instructions: Opioid Withdrawal (ED) Additional Instructions: Thank you for choosing [facility]'s Emergency Department for your care today. At this time there is no indication for admission to the hospital or continued ED observation, and it is safe to discharge you home. You were treated for your Suboxone withdrawal today with a dose of Suboxone. Please follow up with the your pharmacy to fill your prescription tomorrow morning. Please follow up with your primary care physician for re-evaluation, additional management of your symptoms, and continued preventative care. If you do not have a primary care physician, please call the [facility] at [phone] to establish a new primary care physician. While waiting to establish your new primary care physician, you can call our [facility] at [phone] for non-emergency needs. Please return to the emergency department if you develop a severe or sudden change in your symptoms, a fever over 100.4 that does not improve with Tylenol or Ibuprofen, recurrent vomiting, or any other new or worsening symptoms or concerns. Prescriptions: No Action acetaminophen 325 mg Tablet 650 mg PO Q6H PRN (Reason: Headache/Pain, Scale 1-10) Qty: 240 0RF nicotine 14 mg/24 hr Patch 24 Hour 14 mg transdermal DAILY Qty: 30 0RF atorvastatin 10 mg Tablet 10 mg PO DAILY Qty: 30 0RF prazosin 1 mg Capsule 2 mg PO BEDTIME Qty: 60 0RF Protocol: Hold for SBP< HOLD for SBP < : 90 clonazepam 0.5 mg Tablet 0.5 mg PO BID PRN (Reason: Anxiety/Restlessness) Qty: 60 0RF chlorpromazine 25 mg Tablet 50 mg PO TID Qty: 90 0RF propranolol 20 mg Tablet 20 mg PO TID Qty: 90 0RF Protocol: Hold for SBP/HR < HOLD for SBP < : 90 HOLD for HR < : 60 nicotine (polacrilex) 4 mg Lozenge 4 mg buccal Q2H PRN (Reason: Nicotine Cravings) Qty: 100 0RF duloxetine 30 mg Capsule,Delayed Release(Dr/Ec) 30 mg PO BID Qty: 60 0RF buprenorphine-naloxone [Suboxone] 8-2 mg Film 1 film sublingual DAILY@1600 Qty: 2 0RF buprenorphine-naloxone [Suboxone] 8-2 mg Film 2 film sublingual DAILY@0800 Qty: 4 0RF oxcarbazepine 150 mg Tablet 150 mg PO TID Qty: 90 0RF lidocaine [Lidocaine Pain Relief] 4 % Adhesive Patch,Medicated 1 patch transdermal DAILY PRN (Reason: Pain, Mild (Pain Scale 1-3)) Qty: 30 0RF furosemide 20 mg Tablet 20 mg PO DAILY Qty: 30 0RF Protocol: Hold for SBP< HOLD for SBP < : 90 mirtazapine 15 mg Tablet 15 mg PO BEDTIME Qty: 30 0RF clonazepam [Klonopin] 0.5 mg tablet 0.5 mg PO BID PRN (Reason: anxiety) Qty: 28 0RF chlorpromazine 50 mg tablet 50 mg PO TID Qty: 42 0RF duloxetine [Cymbalta] 30 mg capsule,delayed release(DR/EC) 30 mg PO BID Qty: 28 0RF prazosin 2 mg capsule 2 mg PO BEDTIME Qty: 30 0RF morphine 15 mg tablet 15 mg PO Q6H PRN (Reason: pain) Qty: 16 0RF Rx Instructions: Partial Fill upon patient request. ibuprofen 400 mg tablet 400 mg PO Q6H PRN (Reason: pain) Qty: 14 0RF Print Language: Vietnamese
[2025-02-08 20:50] VITALS: BP 138/70; PULSE 70; RESP 16; TEMP 36.9; O2SAT 98
--- NOTE | 2025-02-08 20:58 | PC.NURSE ---
Pt medicated per mar, reviewed discharge instructions with pt. pt verbalized understanding, no sign of distress.
== END 2025-02-08 20:59 | disposition home or self-care (01) ==
PROVIDERS: Emergency Provider Emergency Medicine
DX: F11.13 Opioid abuse with withdrawal (principal); R10.9 Unspecified abdominal pain; R11.10 Vomiting, unspecified; F17.210 Nicotine dependence, cigarettes, uncomplicated; Z59.00 Homelessness unspecified
CPT/HCPCS: 99284